=== PATIENT | male | born 1945 | race Caucasian/White ===

== ENCOUNTER 2023-07-11 10:07 | Inpatient (IN) ==
--- NOTE | 2023-07-11 10:22 | Emergency Department Note ---
Impression & Plan Acute hypoxic respiratory failure, Chest pain, CHF (congestive heart failure), Shortness of breath ED Provider Note NAME: YANA JAMES AGE: 78 SEX: M : 1945 ARRIVES VIA: Walk-In INFORMANT: Patient ED PROVIDER(S): Serafin Guzman DO CHIEF COMPLAINT: Shortness of breath HPI: Patient is a 78-year-old male who presents to the ER for shortness of breath with a past medical history of hyperlipidemia, diabetes and abnormal heart which she believes is too big. He notes symptoms started past 3 to 4 days with cough and congestion and runny nose. Shortness of breath has been getting worse. He significantly worsened with up moving around. He admits to intermittent dry heaving about once a day as well. He notes his stomach feels unsettled. This morning he started with some left upper chest wall/chest pain. Shortness of breath has been worsening. ADDITIONAL HISTORY OBTAINED: Per HPI Chronic Medical/Social Conditions Affecting Care: Per HPI PAST MEDICAL HISTORY:See Below PAST SURGICAL HISTORY:See Below FAMILY HISTORY:See Below SOCIAL HISTORY:See Below HOME MEDICATIONS:See Below ALLERGIES:See Below VITALS:See Below PHYSICAL EXAMINATION: GENERAL: Sitting up in bed, alert, ill-appearing, dyspneic with conversation, intermittent cough EYE EXAM: normal conjunctiva. PERRL and EOM's grossly intact. OROPHARYNX: no exudate, no erythema, lips, buccal mucosa, and tongue normal and mucous membranes are moist NECK: supple, no nuchal rigidity, no adenopathy, non-tender LUNGS: Diminished at the bilateral bases. Normal chest wall mechanics HEART: no murmurs, S1 normal and S2 normal ABDOMEN: abdomen soft, non-tender, normo-active bowel sounds, no masses, no rebound or guarding. UPPER EXTREMITIES: upper extremities are grossly normal. LOWER EXTREMITIES: Faint pitting edema bilaterally NEURO EXAM: Normal sensorium, cranial nerves II-XII grossly intact, normal speech, no gross weakness of arms, no gross weakness of legs. MEDICAL DECISION MAKING: Patient is a 78-year-old male who presents the ER dyspneic with conversation. IV was established blood work was obtained. He was found to be hypoxic at 87% on room air. He was placed on 2 L nasal cannula then transition to high flow which assisted with the work of breathing. Labs showed no significant leukocytosis. Mild anemia 9.4. BMP with a creatinine of 4.5. Patient notes that he has known renal disease with a GFR between 10 to 15. LFTs bilirubin were unremarkable. Troponin was elevated at 800 although I favor this secondary to the CKD. He was given aspirin. Lipase is unremarkable. Viral panel was negative. Chest x-ray suggest CHF. Patient was given a dose of Lasix after discussion with Dr. Luna for further evaluation management treatment. Patient was also given aspirin. Consults/Care Managements Discussions: Per MDM Triage Nursing notes reviewed. Limited review of prior medical records performed Vital Signs: reviewed and remarkable for hypoxic Differential diagnosis: Differential diagnoses includes but is not limited to pneumonia, bronchitis, COPD/Asthma exacerbation, pneumothorax, pulmonary embolism, congestive heart failure, acute coronary syndrome ER treatment provided: See below Diagnostics interpreted by me include EKG and cardiac monitoring as listed below: -Cardiac Monitoring: An order was placed for continuous cardiac monitoring. The monitor shows a rate of 82 with sinus rhythm. -ECG: Sinus rhythm with PACs and intermittent PVCs Left axis Right bundle branch block ST depressions in the lateral leads QTc 540 Repeat EKG shows sinus tachycardia with PACs rate [address] depressions in the lateral leads QTc 518 -Laboratory studies:Interpreted by me as stated above in MDM and shown below. Imaging studies: Xrays: As interpreted by me: Portable AP upright 1 view of the chest shows cephalization CTs show: none Procedures:none Critical Care: I have personally spent 32 minutes of critical care time in the direct management of this patient. This includes bedside care, interpretation of diagnostic studies, and testing, discussion with consultants, patient, and family members, and other required patient management activities. This 32 minutes is in excess of all separately billable procedures. Past Med/Surg History Medical History (Updated 07/11/23 @ 13:30 by Serafin Guzman DO) HLD (hyperlipidemia) Hypertension T2DM (type 2 diabetes mellitus) Sleep apnea ESRD (end stage renal disease) CHF (congestive heart failure) Social History Smoking Status: Never smoker Feels Safe at Home: Yes Allergies Allergies Allergy/AdvReac Type Severity Reaction Status Date / Time tramadol Allergy Mild Unknown Unverified 07/11/23 12:32 citalopram Allergy Unknown Unknown Unverified 07/11/23 12:32 diltiazem Allergy Unknown Unknown Unverified 07/11/23 12:32 niacin Allergy Unknown Unknown Unverified 07/11/23 12:32 Home Meds Home Medications Medication Instructions Recorded Confirmed Aspirin Enteric Coated (Ecotrin Or 81 mg PO PM ##0 04/16/08 07/11/23 Generic *) furosemide 40 mg tablet 40 mg PO QAM ##0 04/16/08 07/11/23 multivitamin 1 tab PO QAM ##0 04/16/08 07/11/23 valsartan 320 mg tablet 320 mg PO PM ##0 04/16/08 07/11/23 ATORVASTATIN (LIPITOR) 40 mg PO PM ##0 01/28/09 07/11/23 Insulin Human Regular (Insulin 07/11/23 07/11/23 Regular Pump) Pump Metoprolol 50 mg PO QAM 07/11/23 07/11/23 allopurinol 100 mg tablet 100 mg PO BID 07/11/23 07/11/23 cyanocobalamin (vitamin B-12) 500 500 mcg PO PM 07/11/23 07/11/23 mcg tablet fluticasone furoate 100 1 inh inhalation QAM 07/11/23 07/11/23 mcg-vilanterol 25 mcg/dose inhalation powder (Breo Ellipta) hydralazine 100 mg tablet 100 mg PO QAM 07/11/23 07/11/23 hydralazine 50 mg tablet 50 mg PO PM 07/11/23 07/11/23 semaglutide 1 mg INJ WK 07/11/23 07/11/23 terazosin 5 mg capsule 5 mg PO QAM 07/11/23 07/11/23 Results & Data (ED) Vital Signs Vital Signs - 24 hr 07/11/23 10:08 07/11/23 10:08 07/11/23 10:15 Temperature 36.7 C Temperature Source Temporal Artery Scan Pulse Rate 93 H 78 Pulse Rate from SpO2 Sensor Pulse Rhythm Regular Respiratory Rate 20 24 Respiratory Effort / Characteristics Non-Labored Spontaneous Respiratory Depth Normal Blood Pressure 115/52 L Blood Pressure Mean 73 Pulse Oximetry 88 L 92 92 Oxygen Delivery Method Room Air Room Air Room Air Sepsis New/Unexplained Change in Mental Status No Sepsis Action Taken by Nursing No Action Required 07/11/23 10:20 07/11/23 10:20 07/11/23 10:30 Temperature Temperature Source Pulse Rate 96 H 91 H Pulse Rate from SpO2 Sensor 97 H 91 H Pulse Rhythm Respiratory Rate 31 H 29 H Respiratory Effort / Characteristics Respiratory Depth Blood Pressure 128/67 Blood Pressure Mean 108 Pulse Oximetry 92 92 Oxygen Delivery Method Sepsis New/Unexplained Change in Mental Status Sepsis Action Taken by Nursing 07/11/23 11:00 07/11/23 11:30 07/11/23 11:37 Temperature Temperature Source Pulse Rate 121 H 82 80 Pulse Rate from SpO2 Sensor 82 82 80 Pulse Rhythm Respiratory Rate 19 33 H 27 H Respiratory Effort / Characteristics Respiratory Depth Blood Pressure Blood Pressure Mean Pulse Oximetry 88 L 87 L 92 Oxygen Delivery Method Sepsis New/Unexplained Change in Mental Status Sepsis Action Taken by Nursing 07/11/23 11:37 07/11/23 11:56 07/11/23 12:00 Temperature Temperature Source Pulse Rate 81 83 Pulse Rate from SpO2 Sensor 81 Pulse Rhythm Respiratory Rate 17 Respiratory Effort / Characteristics Respiratory Depth Blood Pressure 144/58 H Blood Pressure Mean 83 Pulse Oximetry 94 Oxygen Delivery Method Sepsis New/Unexplained Change in Mental Status Sepsis Action Taken by Nursing Laboratory Data 07/11/23 Unknown 07/11/23 Unknown Lab Results 07/11/23 Range/Units Unknown WBC 8.38 (4.8-10.8) K/ul RBC 3.09 L (4.70-6.10) M/uL Hgb 9.4 L (14.0-18.0) g/dl Hct 29.1 L (42.0-52.0) % MCV 94.2 (80.0-100.0) fL MCH 30.4 (25.0-34.0) pg MCHC 32.3 (32.0-36.0) g/dL RDW Std Deviation 52.2 H (36.4-46.3) fL RDW Coeff of Sera 15.2 H (11.5-14.5) % Plt Count 178 (130-400) K/uL MPV 10.7 (9.4-12.4) fL Immature Gran % (Auto) 0.4 % Neut % (Auto) 85.4 % Lymph % (Auto) 6.0 % [place] % (Auto) 7.4 % Eos % (Auto) 0.4 % Baso % (Auto) 0.4 % Neut # (Auto) 7.17 H (1.40-6.50) K/uL Lymph # (Auto) 0.50 L (1.20-3.40) K/uL [place] # (Auto) 0.62 H (0.11-0.59) K/uL Eos # (Auto) 0.03 (0.00-0.50) K/uL Baso # (Auto) 0.03 (0.00-0.20) K/uL Immature Gran # (Auto) 0.03 (0.01-0.20) K/uL Sodium 139 (136-145) mmol/L Potassium 3.8 (3.5-5.1) mmol/L Chloride 103 (98-107) mmol/L Carbon Dioxide 25 (21-32) mmol/L Anion Gap 11 (3-11) BUN 48 H (6-23) mg/dl Creatinine 4.57 H* (0.6-1.4) mg/dl Est Cr Clr Drug Dosing Not Reportable Est GFR ( Amer) 13.2 ml/min Est GFR (Non-Af Amer) 11.4 ml/min BUN/Creatinine Ratio 10.5 (10-20) Glucose 204 H (70-99(Fasting)) mg/dl Calcium 8.8 (8.6-10.3) mg/dl Total Bilirubin 0.5 (0.2-1.0) mg/dl AST 20 (13-39) U/L ALT 14 (7-52) U/L Alkaline Phosphatase 52 (34-104) U/L Troponin I High Sens 810.3 H* (0-20) pg/ml B-Natriuretic Peptide 552 H (0-100) pg/ml Total Protein 6.1 (6.0-8.3) gm/dl Albumin 3.1 L (3.4-5.0) gm/dl Globulin 3.0 (2.5-4.0) gm/dl Albumin/Globulin Ratio 1.0 (0.9-2) Lipase 18 (11-82) U/L Adenovirus (PCR) Not Detected (NotDetected) B. pertussis DNA (PCR) Not Detected (NotDetected) B.parapertussis DNA PCR Not Detected (NotDetected) C. pneumoniae DNA (PCR) Not Detected (NotDetected) Coronavirus OC43 (PCR) Not Detected (NotDetected) Coronavirus HKU1 (PCR) Not Detected (NotDetected) Coronavirus 229E (PCR) Not Detected (NotDetected) SARS-CoV-2 (PCR) Not Detected (NotDetected) Coronavirus NL63 (PCR) Not Detected (NotDetected) Human Metapneumovir PCR Not Detected (NotDetected) Influenza Type A (PCR) Not Detected (NotDetected) Influenza Type B (PCR) Not Detected (NotDetected) M. pneumoniae (PCR) Not Detected (NotDetected) Parainfluenza 1 (PCR) Not Detected (NotDetected) Parainfluenza 2 (PCR) Not Detected (NotDetected) Parainfluenza 3 (PCR) Not Detected (NotDetected) Parainfluenza 4 (PCR) Not Detected (NotDetected) RSV (PCR) Not Detected (NotDetected) Entero/Rhino (PCR) Not Detected (NotDetected) Administered Medications Discontinued Medications Aspirin (Aspirin Chew 324 Mg) 324 mg PO NOW STA Stop: 07/11/23 11:36 Last Admin: 07/11/23 11:54 Dose: 324 mg Documented By: ZULEYKA Furosemide (Furosemide 40 Mg/4 Ml Vial) 40 mg IV NOW STA Stop: 07/11/23 11:57 Last Admin: 07/11/23 12:21 Dose: 40 mg Documented By: ZULEYKA Nitroglycerin (Nitroglycerin Sl 0.4 Mg/Tab Tab) 0.4 mg SL NOW STA Stop: 07/11/23 12:12 Last Admin: 07/11/23 12:18 Dose: 0.4 mg Documented By: ZULEYKA Nitroglycerin (Nitroglycerin 2% Ointment 30gm Tube) Confirm Administered Dose 18 inch EXT .STK-MED ONE Stop: 07/11/23 12:15 Last Admin: 07/11/23 12:18 Dose: 18 inch Documented By: ZULEYKA Imaging Data Radiologist's Impression: Chest X-Ray 07/11/23 10:15 XR chest 1V portable HISTORY: 78 years-old Male Chest pain, nonspecific COMPARISON: 07/22/2006 TECHNIQUE: AP view of the chest FINDINGS: Cardiac silhouette is enlarged. Pulmonary vascular congestion with chronic interstitial coarsening. Trace pleural effusions. Mild bibasilar densities. Degenerative changes of the shoulders and spine. No pneumothorax. IMPRESSION: 1. Cardiomegaly with pulmonary vascular congestion. 2. Trace pleural effusions with mild bibasilar densities favoring atelectasis. ACT 112: Negative or not required by law. The above report was generated using voice recognition software. It may contain grammatical, syntax or spelling errors. Electronically signed by: Sahil Sesay M.D. 07/11/2023 11:04 AM Discharge Plan Visit Data Chief Complaint: Chest Pain Stated Complaint: CHEST PAINS, SOB, HEADACHE, SORE THROAT ED Provider: Serafin Guzman Discharge Problem: Acute hypoxic respiratory failure, Chest pain, CHF (congestive heart failure), Shortness of breath Forms Stand Alone Forms: [employer] Prescriptions Prescriptions: No Action Aspirin Enteric Coated (Ecotrin Or Generic *) 81 MG ENTERIC COATED TAB 81 mg PO PM Qty: 0 multivitamin [Multi-Vitamin] Tablet 1 tab PO QAM Qty: 0 furosemide 40 mg Tablet 40 mg PO QAM Qty: 0 valsartan 320 mg Tablet 320 mg PO PM Qty: 0 ATORVASTATIN (LIPITOR) 40 MG tablet 40 mg PO PM Qty: 0 terazosin 5 mg capsule 5 mg PO QAM allopurinol 100 mg tablet 100 mg PO BID cyanocobalamin (vitamin B-12) 500 mcg Tablet 500 mcg PO PM hydralazine 100 mg Tablet 100 mg PO QAM hydralazine 50 mg Tablet 50 mg PO PM fluticasone furoate-vilanterol [Breo Ellipta] 100-25 mcg/dose blister with device 1 inh INHALATION QAM (DME) Insulin Human Regular (Insulin Regular Pump) Pump Metoprolol 50 mg PO QAM Rx Instructions: list didnt specify tartrate or succinate semaglutide 1 mg INJ WK Rx Instructions: friday Referrals Referrals: PCP,NO [Physician] - Discharge Problem: Chest pain Qualifiers: Chest pain type: unspecified Qualified Code(s): R07.9 - Chest pain, unspecified CHF (congestive heart failure) Qualifiers: Heart failure type: unspecified Heart failure chronicity: unspecified Qualified Code(s): I50.9 - Heart failure, unspecified
[2023-07-11 10:48] LABS: Basophils # (auto) 0.03 K/uL (0.00-0.20); Basophils % (auto) 0.4 %; Eosinophils # (auto) 0.03 K/uL (0.00-0.50); Eosinophils % (auto) 0.4 %; Hematocrit (blood only) 29.1 % (42.0-52.0); Hemoglobin 9.4 g/dl (14.0-18.0); Immature Granulocytes # (auto) 0.03 K/uL (0.01-0.20); Immature Granulocytes % (auto) 0.4 %; Mean Corpuscular Hemoglobin 30.4 pg (25.0-34.0); Mean Corpuscular Hgb Conc 32.3 g/dL (32.0-36.0); Mean Corpuscular Volume 94.2 fL (80.0-100.0); Mean Platelet Volume 10.7 fL (9.4-12.4); Monocytes # (auto) 0.62 K/uL (0.11-0.59); Monocytes % (auto) 7.4 %; Neutrophils # (auto) 7.17 K/uL (1.40-6.50); Neutrophils % (auto) 85.4 %; Platelet Count 178 K/uL (130-400); RDW Coefficient of Variation 15.2 % (11.5-14.5); RDW Standard Deviation 52.2 fL (36.4-46.3); Red Blood Count 3.09 M/uL (4.70-6.10); White Blood Count 8.38 K/ul (4.8-10.8)
--- NOTE | 2023-07-11 11:05 | XRay Report ---
XR chest 1V portable HISTORY: 78 years-old Male Chest pain, nonspecific COMPARISON: 07/22/2006 TECHNIQUE: AP view of the chest FINDINGS: Cardiac silhouette is enlarged. Pulmonary vascular congestion with chronic interstitial coarsening. T race pleural effusions. Mild bibasilar densities. Degenerative changes of the shoulders and spine. No pneumothorax. IMPRESSION: 1. Cardiomegaly with pulmonary vascular congestion. 2. Trace pleural effusions with mild bibasilar densities favoring atelectasis. ACT 112: Negative or not required by law. The above report was generated using voice recognition software. It may contain grammatical, syntax o r spelling errors. Electronically signed by: Sahil Sesay M.D. 07/11/2023 11:04 AM
[2023-07-11 11:15] LABS: Alanine Aminotransferase 14 U/L (7-52); Albumin Level 3.1 gm/dl (3.4-5.0); Alkaline Phosphatase 52 U/L (34-104); Anion Gap 11 (3-11); Aspartate Aminotransferase 20 U/L (13-39); BUN Creatinine Ratio 10.5 (10-20); Bilirubin,Total 0.5 mg/dl (0.2-1.0); Blood Urea Nitrogen 48 mg/dl (6-23); Calcium 8.8 mg/dl (8.6-10.3); Carbon Dioxide 25 mmol/L (21-32); Chloride 103 mmol/L (98-107); Est GFR (African American) 13.2 ml/min; Est GFR (Non-African American) 11.4 ml/min; Glucose 204 mg/dl (70-99(Fasting)); Lipase 18 U/L (11-82); Potassium 3.8 mmol/L (3.5-5.1); Sodium 139 mmol/L (136-145); Total Protein 6.1 gm/dl (6.0-8.3); Troponin I High Sensitivity 810.3 pg/ml (0-20)
[2023-07-11] MEDS: ASPIRIN CHEW 324 MG PO STA (11:54)
--- NOTE | 2023-07-11 11:58 | History & Physical Report ---
Date of Service July 11, 2023 Assessment & Plan (1) NSTEMI (non-ST elevated myocardial infarction): Plan: SOB and chest pain with radiation into the left shoulder upon waking around 0400 on 07/10 Troponin 810-->1271 on arrival EKG revealed A-fib with PVCs at 96 bpm; QTc 540 However, unlikely a fib; repeat EKG showed NSR; p-waves present No prior EKGs for comparison Biofire negative ASA 324, sublingual nitro, and nitro-bid 2% given in the ED Working to obtain records from [facility] Trend Troponin q6h x 3 Continuous telemetry monitoring Continuous pulse oximetry Supplemental oxygen as needed to maintain SpO2 >94% Continue ASA 81mg daily Nitro 0.4mg SL as needed for chest pain EKG as needed for chest pain Heparin IV low-dose w/ bolus Cardiology consulted A.m. CBC, BMP, Mag, A1c, Fasting Lipid Panel (2) CHF (congestive heart failure): Plan: Hx of CHF; patient takes lasix 40mg QAM BNP elevated at 552 (no prior for comparison) CXR with cardiomegaly and pulmonary vascular congestion Echocardiogram ordered, pending Daily weights Strict I&O monitoring 1800mL fluid restriction Lasix 40 mg IV BID17 (3) ESRD (end stage renal disease): Plan: BUN 48, creatinine 4.57 (per patient his baseline is around 4.40), EGFR 11.4 Patient does have a fistula in his left wrist, but has not required dialysis yet No BP, IV, or labs in LUE Working to obtain prior records from [facility] Nephrology Avoid nephrotoxic agents Hold valsartan If patient is non-responsive to Lasix or requires cardiac catheterization, will need dialysis Nephrology consulted (4) T2DM (type 2 diabetes mellitus): Plan: Glucose 204 on admission Patient uses a U-500 insulin pump at home;around 80u - 87u daily via insulin pump, as well as additional Novolog if he consumes >70g carbs Patient has not had his insulin pump on for the past 24h Spoke with pharmacy; pharmacy glycemic consult Lantus BID + SSI, with adjustments as necessary if patient requires dialysis Hold semaglutide T2DM diet BSG ACHS with additional checks Adjust regimen as needed (5) HLD (hyperlipidemia): Plan: Continue Lipitor 40mg p.o. for now Follow A.m. fasting lipid panel (6) Hypertension: Plan: Continue metoprolol Continue hydralazine (7) Sleep apnea: Plan: CPAP HS Plan Disposition: Admit to PCU telemetry DNR/DNI AHA, T2DM, low-salt diet (fluid restriction 1800 mL) VTE: IV heparin low-dose w/ bolus History of Present Illness Chief Complaint: Chest pain Primary Care Provider: [facility] Eduardo is a 78yo male with PMH of HTN, HLD, T2DM, CHF, and GERD among others. He presented for chest pain with radiation into his left shoulder on 07/10. He woke up this morning around 0400 due to lack of oxygen. Patient uses a BiPAP at night and has for the past 20 years. He reports that he woke up with trouble breathing, and took off his BiPAP; sitting up made it easier to breathe. He also notes he had pain across his left chest and left shoulder, which he described as a constant "crushing" pain. No radiation down the left arm or to the upper back. Patient did take Tylenol 1000 mg at that time, which helped the pain a little bit. He reports the pain was only 4/10 at its worst, but was constant and reports that he does have a high pain tolerance. Patient does not normally get chest pain with exertion or at rest. He does note he had a rotator cuff 10 years ago, but denies any recent injuries to the left shoulder or chest wall. Patient took all of his regular morning medications today; denies any recent change in medications. He does have a history of diabetes, and reports that he uses around 80 units daily with his insulin pump; checks his blood sugar 4 times daily. He has a fistula in his left wrist, and follows with Vipin Guzmán (Nephrology; [facility]), but has not currently had dialysis; the fistula was placed in the event that he would need dialysis. He reports that his last creatinine was around 4.4 (this is around baseline today). He has not been eating as much recently; he does have salt the foods in his diet, and reports he had salsa 2 nights ago, but denies any extra salt in his diet. He reports that he does have a history of abdominal aortic distention, but this is around 3 cm, and he has it checked regularly. His chest pain was relieved with nitro in the ED. Associated symptoms include dry heaves over the past 3 days. Patient reports that he is a former smoker; quit in May 1999. He denies any recent alcohol use. No supplemental oxygen at home, but he does report that he has a CPAP that he uses at night x 20 years. No PMH of heart stents, MN, or PE/DVT. Patient uses a cane at home for ambulation, and occasionally a walker. He does report recently falling x 2 in March 2023; cut his forehead, and went to the hospital. Patient is hypertensive at 144/58 and tachypneic at 34 RPM at time of admission; SpO2 94% on 3L NC. ED Course: ASA 324mg Placed on high-flow Lasix 40mg IV ROS: Patient endorses chills x 3 nights, night-sweats x 3 nights, lightheadedness, RODRIGUEZ, changes in vision (difficulty with focusing and occasional blurriness), chest pain, left shoulder pain, SOB at rest, ongoing HAGAN, dry cough (which he calls his "nervous" cough), pleuritic CP, dry heaves, leg swelling, and chronic LE neuropathy. Patient denies fever, loss of vision, abdominal pain, N/V/D, change in urinary/bowel habits, burning with urination, or blood in the urine or stool. Allergies Allergy/AdvReac Type Severity Reaction Status Date / Time tramadol Allergy Mild Unknown Unverified 07/11/23 12:32 citalopram Allergy Unknown Unknown Unverified 07/11/23 12:32 diltiazem Allergy Unknown Unknown Unverified 07/11/23 12:32 niacin Allergy Unknown Unknown Unverified 07/11/23 12:32 Home Medications Medication Instructions Recorded Confirmed Type Aspirin Enteric Coated (Ecotrin Or 81 mg PO PM ##0 04/16/08 07/11/23 History Generic *) furosemide 40 mg tablet 40 mg PO QAM ##0 04/16/08 07/11/23 History multivitamin 1 tab PO QAM ##0 04/16/08 07/11/23 History valsartan 320 mg tablet 320 mg PO PM ##0 04/16/08 07/11/23 History ATORVASTATIN (LIPITOR) 40 mg PO PM ##0 01/28/09 07/11/23 History Insulin Human Regular (Insulin 07/11/23 07/11/23 History Regular Pump) Pump allopurinol 100 mg tablet 100 mg PO BID 07/11/23 07/11/23 History cyanocobalamin (vitamin B-12) 500 500 mcg PO PM 07/11/23 07/11/23 History mcg tablet fluticasone furoate 100 1 inh inhalation QAM 07/11/23 07/11/23 History mcg-vilanterol 25 mcg/dose inhalation powder (Breo Ellipta) hydralazine 100 mg tablet 100 mg PO QAM 07/11/23 07/11/23 History hydralazine 50 mg tablet 50 mg PO PM 07/11/23 07/11/23 History metoprolol succinate 50 mg 50 mg PO DAILY 07/11/23 07/11/23 History tablet,extended release 24 hr semaglutide 1 mg INJ WK 07/11/23 07/11/23 History terazosin 5 mg capsule 5 mg PO QAM 07/11/23 07/11/23 History Past Med/Surg History Medical History (Updated 07/11/23 @ 14:40 by Joceline Silver MD) Anemia due to chronic 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 HLD (hyperlipidemia) Hypertension T2DM (type 2 diabetes mellitus) Sleep apnea ESRD (end stage renal disease) CHF (congestive heart failure) Social History Smoking Status: Never smoker Hx Alcohol Use: No Hx Substance Use: No Preferred Language: Nepali Communication Ability: Effective Financial Economist Required: No Beliefs That Will Affect Care: None Current Living Situation: Spouse Feels Safe at Home: Yes Assistive Devices: BiPap, Cane, Denture - Upper, Hearing Aid - Bilateral, Stair Lift, Walker and Wheelchair Review of Systems Review of Systems: See HPI above Physical Exam Physical Exam: General: Moderate respiratory distress; pleasant affect; non-toxic appearing; well-nourished; cooperative; 94% SpO2 on 3L NC HEENT: normocephalic, atraumatic; no scleral icterus; PERRLA; moist mucus membrane; vision intact; hard of hearing Neck: supple; negative for JVP; no lymphadenopathy; trachea midline Skin: warm, dry without signs of tenting; no cyanosis; no rashes, bruising, lesions, or erythema noted CV: chest wall NTP; pain is not reproducible with palpation of the left chest wall or left shoulder; RRR; S1/S2 normal; no murmurs/rubs/gallops; pulses intact and symmetric at radial, DP, and PT Lungs: no acute respiratory distress; symmetrical chest wall expansion; clear breath sounds across all lung mireles w/o adventitious sounds; no wheezing ABD: Soft, NTP; BS present; no rebound/guarding; moderate distention secondary to body habitus MSK: no tics or fasciculations; +2 pitting edema in the lower extremities bilaterally; fistula in the left wrist Neuro: A&Ox3; normal mood and affect; fluent speech; no focal deficits; diminished sensation in the LEs b/l, but intact and symmetric Results & Data Results & Data Vital Signs (Past 12 Hours) Vital Signs Temp Pulse Resp BP Pulse Ox O2 Del Method 07/11/23 11:56 81 07/11/23 11:00 121 H 19 88 L 07/11/23 10:30 91 H 29 H 92 07/11/23 10:20 96 H 31 H 92 07/11/23 10:20 128/67 07/11/23 10:15 78 24 92 Room Air 07/11/23 10:08 92 Room Air 07/11/23 10:08 36.7 C 93 H 20 115/52 L 88 L Room Air Laboratory Results Abnormal lab results 07/11/23 Range/Units Unknown RBC 3.09 L (4.70-6.10) M/uL Hgb 9.4 L (14.0-18.0) g/dl Hct 29.1 L (42.0-52.0) % RDW Std Deviation 52.2 H (36.4-46.3) fL RDW Coeff of Sera 15.2 H (11.5-14.5) % Neut # (Auto) 7.17 H (1.40-6.50) K/uL Lymph # (Auto) 0.50 L (1.20-3.40) K/uL Nance # (Auto) 0.62 H (0.11-0.59) K/uL BUN 48 H (6-23) mg/dl Creatinine 4.57 H* (0.6-1.4) mg/dl Glucose 204 H (70-99(Fasting)) mg/dl Troponin I High Sens 810.3 H* (0-20) pg/ml B-Natriuretic Peptide 552 H (0-100) pg/ml Albumin 3.1 L (3.4-5.0) gm/dl Diagnostic Findings Chest X-Ray 07/11/23 10:15 XR chest 1V portable HISTORY: 78 years-old Male Chest pain, nonspecific COMPARISON: 07/22/2006 TECHNIQUE: AP view of the chest FINDINGS: Cardiac silhouette is enlarged. Pulmonary vascular congestion with chronic interstitial coarsening. Trace pleural effusions. Mild bibasilar densities. Degenerative changes of the shoulders and spine. No pneumothorax. IMPRESSION: 1. Cardiomegaly with pulmonary vascular congestion. 2. Trace pleural effusions with mild bibasilar densities favoring atelectasis. ACT 112: Negative or not required by law. The above report was generated using voice recognition software. It may contain grammatical, syntax or spelling errors. Electronically signed by: Sahil Sesay M.D. 07/11/2023 11:04 AM Medications Administered EKG reports atrial fibrillation at 96bpm, however P-waves present Repeat EKG with NSR Lateral ST-depressions Prolonged QTc (caution use of QT prolonging agents) Code Status & VTE Plan Code Status DNR/DNI VTE Prophylaxis Plan VTE Prophylaxis will be ordered: Yes Supervising Physician Co-Signing Physician Notes Patient seen and examined, chart reviewed, case discussed with Tyrone Hawkins and I agree with the assessment and plan as above except as otherwise noted Labs and images reviewed Eduardo is a 78-year-old male with past medical history of diabetic CKD with baseline GFR of 1015 and last creatinine of approximately 4.03 April 2023, CHF without history of MN/stents and no history of heart attack per patient collateral pending reconciliation from [place] and [facility] records, type II DM on insulin pump which patient reports he uses about 40 units of U-500 daily and total, hypertension, hyperlipidemia, and COPD with former tobacco abuse in remission who presented to the ER with chest pain and shortness of breath with an abrupt onset this morning. Prior to presentation he reports he has been progressively short of breath and easily winded with exertion for approximately a week. He has noticed increased leg swelling compared to normal in the last week despite taking Lasix and peeing normally. He reports he did have some salsa 2 days ago, otherwise has not had a change in his salt intake and denies soup/salted foods/meats. His notes he does salt his food but has had a diminished appetite in the last few days so has not done this very much. [facility] he actually came in due to developing pain in his anterior left shoulder. He thought this could be related to rotator cuff pain in that shoulder which she last had 10 years ago. Following admission to the ER he was given a full dose aspirin, he said with rest and oxygen the pain improved from around 8/10 with a painful quality down to a 46/10 with a pressure like quality but he remained short of breath. Received Lasix 40 mg IV in the ER for suspected CHF/volume overload. NO reproducible shoulder pain on palpation/shoulder RoM testing. At hospitalist assessment patient was given nitro sublingual x 1 and 1 inch of Nitropaste. This completely and quickly resolved both his chest/shoulder discomfort and his shortness of breath. Initial EKG with incomplete right bundle branch block and lateral ST depressions. This was read as A-fib with a poor baseline and some overlapping T waves; on review P waves with a consistent ME do appear to be present and EKG is consistent with sinus with inferolateral ST depressions. Following oxygen, Lasix, and nitro patient's EKG was repeated at the bedside. ST depressions normalized and patient's chest pain resolved. No EKG available for comparison, records are pending from both [facility] and [facility]. Patient reports that he has not had chest pain/pressure until today, denies crescendo angina. As patient shows evidence of volume overload, will continue Lasix twice daily. At time of ER assessment he is chest pain-free with dynamic changes on EKG improved. Will continue to follow, trend troponin, and obtain echo. Heparinized. Patient's cardiac history is unclear he reports he does follow with a radiologic technologist chief in [facility] and had "either a big or small heart "but is not able to give more detail than this. He is on aspirin/metoprolol/ARB/Lasix, ARB held and aspirin continued. Cardiology consulted. Increased risk of complications of contrast 2/2 CKD5. Patient has a history of diabetic CKD with baseline creatinine in the mid fours and baseline GFR of 1015. He did have a left wrist fistula placed, this is completely occluded and not usable. He also has left AC fistula with +thrill however per his fabricator special items/vascular team cannot be accessed as it is too small to accommodate appropriate access. He reports he has been prepared for dialysis but has never needed it, and while his creatinine is high he is not an uric and has been doing well with home Lasix up until now. Patient is continued on Lasix as noted, nephrology is consulted to follow along given CKD 5 with concurrent volume overload/CHF. If patient requires dialysis he will need a temporary catheter placed. Patient sees [place] nephrology Dr. Harmon. [facility] Nephrology records pending. PG Care Time/CCT Total # of Minutes Spent Total Time Spent with Patient: Total time spent is greater than 50% in coordination of care (as documented) at patient's floor/unit and/or counseling patient: [place] [address] INT INP/OBS CARE 375MIN Patient Type New History Comprehensive Exam Comprehensive Medical Decision Making High Complexity Diagnoses NSTEMI (non-ST elevated myocardial infarction) I21.4 CHF (congestive heart failure) I50.9 ESRD (end stage renal disease) N18.6 T2DM (type 2 diabetes mellitus) E11.9 HLD (hyperlipidemia) E78.5 Hypertension I10 Sleep apnea G47.30
[2023-07-11 12:08] LABS: Adenovirus PCR Not Detected (NotDetected); Bordetella parapertussis PCR Not Detected (NotDetected); Bordetella pertussis PCR Not Detected (NotDetected); Chlamydia pneumoniae PCR Not Detected (NotDetected); Coronavirus 229E PCR Not Detected (NotDetected); Coronavirus CoV-2 (COVID19)PCR Not Detected (NotDetected); Coronavirus HKU1 PCR Not Detected (NotDetected); Coronavirus NL63 PCR Not Detected (NotDetected); Coronavirus OC43PCR Not Detected (NotDetected); Human Metapneumovirus PCR Not Detected (NotDetected); Influenza A PCR Not Detected (NotDetected); Influenza B PCR Not Detected (NotDetected); Mycoplasma pneumoniae PCR Not Detected (NotDetected); Parainfluenza Virus 1 PCR Not Detected (NotDetected); Parainfluenza Virus 2 PCR Not Detected (NotDetected); Parainfluenza Virus 3 PCR Not Detected (NotDetected); Parainfluenza Virus 4 PCR Not Detected (NotDetected); Respiratory Syncytial VirusPCR Not Detected (NotDetected); Rhinovirus/Enterovirus PCR Not Detected (NotDetected)
[2023-07-11] MEDS: NITROGLYCERIN SL 0.4 MG/TAB TAB SL STA (12:18)
[2023-07-11] MEDS: NITROGLYCERIN 2% OINTMENT 30GM TUBE EXT ONE ×2 (12:18→14:47)
[2023-07-11] MEDS: FUROSEMIDE 40 MG/4 ML VIAL IV STA (12:21)
[2023-07-11] MEDS ORDERED: NITROGLYCERIN SL 0.4 MG/TAB TAB SL PRN (14:22)
[2023-07-11] MEDS ORDERED: CARBOHYDRATES FOR HYPOGLYCEMIA PO PRN (14:22)
[2023-07-11] MEDS ORDERED: DEXTROSE 50% 50 ML SYRINGE IV PRN (14:22)
[2023-07-11] MEDS ORDERED: ONDANSETRON INJ 2 MG/ML 2 ML VIAL IV PRN (14:22)
[2023-07-11] MEDS ORDERED: GLUCOSE 10 TAB/TUBE PO PRN (14:22)
[2023-07-11] MEDS ORDERED: GLUCOSE 40% GEL 15 GM TUBE PO PRN (14:22)
[2023-07-11] MEDS ORDERED: PHARMACY GLYCEMIC MGMT CONSULT PRN ×2 (14:22→14:50)
[2023-07-11] MEDS ORDERED: GLUCAGON FOR INJ 1 MG VIAL SQ PRN (14:22)
--- NOTE | 2023-07-11 14:40 | Nephrology Consultation ---
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 Noted to have anemia with hemoglobin 9.4. Kidney function seems to be at baseline with acceptable electrolytes. Seems volume overloaded, already responding to diuretic with improvement in respiratory status. Chest pain improved with nitro. Second set of troponin trending down. -- Okay to continue on current dose of diuretics. -- Check CBC and iron study in a.m., if significantly iron deficient, will start on Venofer otherwise start on RAMIREZ -- Check phosphorus with a.m. lab -- Left arm nephrology precaution, dose medications for eGFR less than 15. -- Okay to resume valsartan if blood pressure running high as potassium normal and currently on higher dose of diuretics. No indication for dialysis at this time, continue to monitor electrolyte and volume status. Thank you for allowing me to participate in your patient's care. It was a pleasure to see Ed. History of Present Illness Reason for Consultation: Stage 5 CKD, volume overload. Attending Physician: Wyatt Hassan MD History of Present Illness Mr. Eduardo Bunch is a 78-year-old gentleman with stage V CKD, hypertension, diabetes, dyslipidemia admitted to the hospital with chest pain, shortness of breath with volume overload. Nephrology consult was requested for management of advanced CKD/ESKD, volume overload. Electronic medical records were reviewed in detail during patient's visit. Eduardo presented to ER with chest pain and shortness of breath which started early this morning. He generally uses BiPAP at night for sleep apnea. In ER blood pressure was acceptable. He was noted to be hypoxic on room air, started on nasal cannula oxygen. At home he was on Lasix 40 mg daily. He was given a dose of 40 mg of IV Lasix. Chest pain did improve with nitro in ED. chest x-ray showed pulmonary vascular congestion. Lab was notable for hemoglobin 9.4. Creatinine was 4.6 mg/dl with EGFR around 11. Electrolyte was acceptable. Potassium was 3.8, HCO3 25. Initial troponin was elevated but second troponin was slightly lower. EKG with no acute ST-T changes. Has history of stage V CKD, according to the report b/l cr has been around 4.4- 4.5 mg/dl, First access left RC AVF failed and then had left BC AV fistula in September 2022 but slow to mature and recommended he will need transposition in future, his supervisor blueprinting and photocopy is Vipin Guzmán at [facility]. Has history of hypertension and diabetes, has been on valsartan 320 mg daily, hydralazine, Lasix 40 mg daily, insulin and Ozempic. Allergies Allergy/AdvReac Type Severity Reaction Status Date / Time tramadol Allergy Mild Unknown Unverified 07/11/23 12:32 citalopram Allergy Unknown Unknown Unverified 07/11/23 12:32 diltiazem Allergy Unknown Unknown Unverified 07/11/23 12:32 niacin Allergy Unknown Unknown Unverified 07/11/23 12:32 Home Medications Medication Instructions Recorded Confirmed Type Aspirin Enteric Coated (Ecotrin Or 81 mg PO PM ##0 04/16/08 07/11/23 History Generic *) furosemide 40 mg tablet 40 mg PO QAM ##0 04/16/08 07/11/23 History multivitamin 1 tab PO QAM ##0 04/16/08 07/11/23 History valsartan 320 mg tablet 320 mg PO PM ##0 04/16/08 07/11/23 History ATORVASTATIN (LIPITOR) 40 mg PO PM ##0 01/28/09 07/11/23 History Insulin Human Regular (Insulin 07/11/23 07/11/23 History Regular Pump) Pump allopurinol 100 mg tablet 100 mg PO BID 07/11/23 07/11/23 History cyanocobalamin (vitamin B-12) 500 500 mcg PO PM 07/11/23 07/11/23 History mcg tablet fluticasone furoate 100 1 inh inhalation QAM 07/11/23 07/11/23 History mcg-vilanterol 25 mcg/dose inhalation powder (Breo Ellipta) hydralazine 100 mg tablet 100 mg PO QAM 07/11/23 07/11/23 History hydralazine 50 mg tablet 50 mg PO PM 07/11/23 07/11/23 History metoprolol succinate 50 mg 50 mg PO DAILY 07/11/23 07/11/23 History tablet,extended release 24 hr semaglutide 1 mg INJ WK 07/11/23 07/11/23 History terazosin 5 mg capsule 5 mg PO QAM 07/11/23 07/11/23 History Patient History Medical History Anemia due to chronic 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 HLD (hyperlipidemia) Hypertension T2DM (type 2 diabetes mellitus) Sleep apnea ESRD (end stage renal disease) CHF (congestive heart failure) Social History Smoking Status: Never smoker Hx Alcohol Use: No Hx Substance Use: No Preferred Language: Burundian Communication Ability: Effective Workers' Compensation Magistrate Required: No Beliefs That Will Affect Care: None Current Living Situation: Spouse Other Information That Helps Us Care for You: No Feels Safe at Home: Yes Safety Concerns: Feels Safe At This Time Assistive Devices: BiPap, Cane, Denture - Upper, Hearing Aid - Bilateral, Stair Lift, Walker and Wheelchair Review of Systems Review of Systems: All systems reviewed & are unremarkable except as noted in HPI & below Physical Exam Constitutional: WD/WN, vitals as above no acute distress Eyes: + anicteric sclerae Neck: normal visual inspection Respiratory: no respiratory distress Auscultation: + crackles; no wheezes Cardiovascular: Rate/Rhythm: regular rate and regular rhythm Heart Sounds: normal S1 and normal S2 Extremities: + edema and + AV fistula (left BC AVF with thrill and high pitched bruit.) Musculoskeletal: no cyanosis or clubbing, extremities motor strength 5/5 Skin: no rashes, warm and dry Neurologic: no focal motor deficits Psychiatric: Orientation: alert and oriented x 3 Affect: euthymic affect Results & Data Vital Signs (Past 12 Hours) Vital Signs Temp Pulse Resp BP BP Pulse Ox O2 Del Method 07/11/23 14:20 36.8 C 16 163/79 H 94 Nasal Cannula 07/11/23 13:30 85 34 H 94 07/11/23 13:00 80 21 95 07/11/23 12:30 82 22 93 07/11/23 12:00 83 17 94 04/12/24 11:56 81 07/11/23 11:37 144/58 H 07/11/23 11:37 80 27 H 92 07/11/23 11:30 82 33 H 87 L 07/11/23 11:00 121 H 19 88 L 07/11/23 10:30 91 H 29 H 92 07/11/23 10:20 96 H 31 H 92 07/11/23 10:20 128/67 07/11/23 10:15 78 24 92 Room Air 07/11/23 10:08 92 Room Air 07/11/23 10:08 36.7 C 93 H 20 115/52 L 88 L Room Air O2 Flow Rate 07/11/23 14:20 2 07/11/23 13:30 07/11/23 13:00 07/11/23 12:30 07/11/23 12:00 07/11/23 11:56 07/11/23 11:37 07/11/23 11:37 07/11/23 11:30 07/11/23 11:00 07/11/23 10:30 07/11/23 10:20 07/11/23 10:20 07/11/23 10:15 07/11/23 10:08 07/11/23 10:08 PG Care Time/CCT Total # of Minutes Spent Total Time Spent with Patient: Total time spent is greater than 50% in coordination of care (as documented) at patient's floor/unit and/or counseling patient: Coding Level of Care Code 00831 INT INP/OBS CARE 3/75MIN Diagnoses 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
[2023-07-11] MEDS: NITROGLYCERIN SL 0.4 MG/TAB TAB ONE (14:46)
[2023-07-11] MEDS ORDERED: [UNRECOGNIZED DRUG - OTHER] SC SCH (15:00)
[2023-07-11] MEDS ORDERED: INSULIN REGULAR SC SCH (15:00)
--- NOTE | 2023-07-11 15:14 | Pharmacy Report ---
Pharmacy Glycemic Short Note 2 - Date of Service July 11, 2023 - Glycemic Short BSG Results (Last 24 hours): 07/11/23 Unknown Glucose 204 H OUTPATIENT ANTIDIABETIC REGIMEN: Spoke extensively with the patient (with his Johana as the patient is [id number]). He is on the following as an outpatient: * U500 insulin pump - basal only, no bolus. Patient removed pump 07/09 at 1630. * 9365-9399: no basal rate * 0841-7829: 0.9 units/hr * 7860-6417: 1.15 units/hr * 2190-3150: 1.3 units/hr * Total daily U500 insulin dose: 17.55 units/day - patient noted the units above are in *U500* units and therefore the equivalent in U100 units would be 5x the amount listed, which would be 87.75 units of U100 equivalent per day * Novolog prn * Uses a CHO ratio of 3 g CHO/unit, BUT only if he consumes >70 g CHO. If he doesn't consume 70 g CHO - no Novolog. * Semaglutide qwk * HbA1c unknown - ordered for 07/12/23 ASSESSMENT: * 78 yo M with T2DM admitted with possible NSTEMI vs demand ischemia and worsening renal function with the possibility of initiating dialysis soon. U500 pump that patient uses exclusively for basal insulin was removed by patient yesterday at 4:30pm * No prior records to review * Spoke extensively with patient and his - see above for home regimen. Home regimen significantly basal heavy - likely covers some prandial needs. Also, if patient needs dialysis, this can drastically reduce insulin needs, thus higher basal doses at this time could contribute to future hypoglycemia. Will be less aggressive with basal, but will add in Novolog checks including overnight. PLAN FOR INPATIENT GLYCEMIC CONTROL: * Hold U500 pump - patient's plans to bring supplies in tomorrow AM for *eventual* transition back to pump prior to discharge, if indicated. Discussed that would be using basal/bolus as an inpatient and that pump should not be utilized simultaneously. Noted that it would be up to the provider to determine when the pump should be utilized. * Basal insulin * Lantus 30 units SQ x1 now * Bolus insulin * NovoLog per scale ACHS or Q6hrs while NPO * Goal Range: Low 120 mg/dL - High 160 mg/dL * Correction Factor: 15 mg/dL/unit * Nutritional / Prandial insulin per carb ratio of 1 unit per 4 grams CHO consumed
[2023-07-11] MEDS ORDERED: HEPARIN SOD (PORCINE) 1000 UNIT/ML IV ONE (15:17)
--- NOTE | 2023-07-11 16:15 | XCELERA ---
[id number] \\[id number]
--- NOTE | 2023-07-11 16:20 | Cardiology Consultation ---
Date of Consultation July 11, 2023 Assessment & Plan (1) NSTEMI (non-ST elevated myocardial infarction): (2) Acute on chronic heart failure with preserved ejection fraction (HFpEF): (3) Hypertension: (4) HLD (hyperlipidemia): (5) Anemia due to chronic kidney disease: Plan ASSESSMENT/PLAN: 1. NSTEMI: Presented with his first episode of angina, with positive troponins and hypokinesis of the anterolateral wall on echo. We discussed the diagnosis and concern for underlying CAD, especially with his risk factors. We discussed role for cardiac catheterization but also increased risk for need of dialysis given his advanced kidney disease. He does not wish to undergo cardiac catheterization but prefers medical management. Recommended heparin drip if no contraindication. Heparin for 48 hours. Continue aspirin 81 mg daily. Initiate Plavix 75 mg daily if no contraindication. Plavix can be continued for 1 year if tolerated. Continue beta-ritesh and would recommend increasing home dose of metoprolol to 100 mg daily for medical management of presumed underlying CAD. High intensity statin therapy. Isosorbide mononitrate 30 mg daily. Recommend cardiac rehab. If he should have ongoing angina that does not resolve with medical therapy, we discussed the fact that urgent cardiac catheterization could be considered if he is agreeable. 2. Acute on chronic heart failure with preserved EF: Difficult neck exam but certainly has lower extremity edema and based on his presentation has symptoms of heart failure leading up to this hospital stay. NYHA class 4. Agree with intravenous diuretics. Monitor renal function and electrolytes closely. Low- sodium diet, less than 2000 mg daily. Strict I's and O's while hospitalized. Daily weights. These recommendations were discussed with him. No SGLT2 inhibitor given advanced CKD. 3. Hypertension: Blood pressure mostly elevated thus far here. Increase beta- ritesh as noted above. 4. Dyslipidemia: Goal LDL < 70. Continue high intensity statin therapy. 5. Anemia: Monitor closely with antiplatelet therapy and heparin. 6. CKD: Follows with nephrology in [facility] [place]. 7. Disposition: Patient care signed out to Dr. Ramos who is on-call Friday evening and Friday. Dr. Ramos will resume his care tomorrow. Patient care initially discussed with admitting primary hospitalist team (Dr. Hassan). Cardiac rehab on discharge. Follow-up with primary phone manager. Highly complex medical issues. Thank you for allowing me to participate in the care of your patient. Please call for any other questions or concerns. Sincerely, Manny Staton M.D. History of Present Illness Reason for Consultation: NSTEMI Requesting Physician: Tyrone Hawkins PA-C Attending Physician: Wyatt Hassan MD History of Present Illness Mr. Bunch is a very pleasant 78-year-old gentleman with a history significant for heart failure with preserved EF, advanced CKD, left upper extremity AV fistula, type 2 diabetes, hypertension, dyslipidemia, sleep apnea on BiPAP nightly, and AAA. He follows with cardiology and nephrology in the [facility] system. He was admitted on 07/11/2023 after being awakened at 4 AM the same day with left upper chest discomfort described as "crushing." There was associated shortness of breath and diaphoresis but no radiation of the pain. He has never felt this discomfort before. Symptoms persisted for few hours. His drove him from [place] to [facility]. He was given aspirin and the pain resolved following nitroglycerin. He was chest pain-free at the time of this visit, earlier this evening. For the past 3 days, he has noted edema, orthopnea, even while using BiPAP. He maintains a low-sodium diet. Dyspnea on exertion has been chronic. He states he can only walk approximately 10 yards due to dyspnea and also bilateral hip pain. He denies muscle discomfort in his legs with walking. He maintains a low-sodium diet. He does not weigh himself daily. He takes Lasix on a regular basis, 40 mg daily. Review of systems: As above. Review of systems otherwise negative/unremarkable. Family history: Father had PA at the age of 72. Social history: He quit smoking on 06/30/1999. No alcohol or drug abuse. Lives at home with his third in [place]. Has 3 biologic children but they are not part of his life. He is x 1 and x 1. He was unaccompanied. Allergies Allergy/AdvReac Type Severity Reaction Status Date / Time tramadol Allergy Mild Unknown Unverified 07/11/23 12:32 citalopram Allergy Unknown Unknown Unverified 07/11/23 12:32 diltiazem Allergy Unknown Unknown Unverified 07/11/23 12:32 niacin Allergy Unknown Unknown Unverified 07/11/23 12:32 Home Medications Medication Instructions Recorded Confirmed Type Aspirin Enteric Coated (Ecotrin Or 81 mg PO PM ##0 04/16/08 07/11/23 History Generic *) furosemide 40 mg tablet 40 mg PO QAM ##0 04/16/08 07/11/23 History multivitamin 1 tab PO QAM ##0 04/16/08 07/11/23 History valsartan 320 mg tablet 320 mg PO PM ##0 04/16/08 07/11/23 History ATORVASTATIN (LIPITOR) 40 mg PO PM ##0 01/28/09 07/11/23 History Insulin Human Regular (Insulin 07/11/23 07/11/23 History Regular Pump) Pump allopurinol 100 mg tablet 100 mg PO BID 07/11/23 07/11/23 History cyanocobalamin (vitamin B-12) 500 500 mcg PO PM 07/11/23 07/11/23 History mcg tablet fluticasone furoate 100 1 inh inhalation QAM 07/11/23 07/11/23 History mcg-vilanterol 25 mcg/dose inhalation powder (Breo Ellipta) hydralazine 100 mg tablet 100 mg PO QAM 07/11/23 07/11/23 History hydralazine 50 mg tablet 50 mg PO PM 07/11/23 07/11/23 History metoprolol succinate 50 mg 50 mg PO DAILY 07/11/23 07/11/23 History tablet,extended release 24 hr semaglutide 1 mg INJ WK 07/11/23 07/11/23 History terazosin 5 mg capsule 5 mg PO QAM 07/11/23 07/11/23 History Patient History Medical History Anemia due to chronic 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 HLD (hyperlipidemia) Hypertension T2DM (type 2 diabetes mellitus) Sleep apnea ESRD (end stage renal disease) CHF (congestive heart failure) Social History Smoking Status: Never smoker Hx Alcohol Use: No Hx Substance Use: No Preferred Language: Maltese Communication Ability: Effective Lab Animal Technician Required: No Beliefs That Will Affect Care: None Current Living Situation: Spouse Other Information That Helps Us Care for You: No Feels Safe at Home: Yes Safety Concerns: Feels Safe At This Time Assistive Devices: BiPap, Cane, Denture - Upper, Hearing Aid - Bilateral, Stair Lift, Walker and Wheelchair Physical Exam Physical Exam: Gen.: No acute distress. Alert and oriented. HEENT: Anicteric sclera. Neck: Thick neck. Bilateral carotid bruit versus radiation of cardiac murmur. Normal carotid upstrokes bilaterally. Cardiac: Regular. Normal S1-S2. 2/6 early peaking systolic ejection murmur best heard at the right upper sternal border. Pulmonary: Decreased breath sounds throughout, but otherwise clear to auscultation bilaterally without wheezes, rales, or rhonchi. Abdomen: Soft, nontender, nondistended, with normoactive bowel sounds. No bruits noted. Extremities: 2+ radial pulses bilaterally. 1+ dorsalis pedis pulses bilaterally. 2+ bilateral lower extremity edema. Left upper extremity AV fistula with palpable thrill and audible bruit. No cyanosis. Psychiatric: Affect appears appropriate. Results & Data Vital Signs (Past 12 Hours) Vital Signs Temp Pulse Resp BP BP Pulse Ox O2 Del Method 07/11/23 15:23 85 07/11/23 14:37 Room Air 07/11/23 14:20 36.8 C 16 163/79 H 94 Nasal Cannula 07/11/23 13:30 85 34 H 94 07/11/23 13:00 80 21 95 07/11/23 12:30 82 22 93 07/11/23 12:00 83 17 94 07/11/23 11:56 81 07/11/23 11:37 144/58 H 07/11/23 11:37 80 27 H 92 07/11/23 11:30 82 33 H 87 L 07/11/23 11:00 121 H 19 88 L 07/11/23 10:30 91 H 29 H 92 07/11/23 10:20 96 H 31 H 92 07/11/23 10:20 128/67 07/11/23 10:15 78 24 92 Room Air 07/11/23 10:08 92 Room Air 07/11/23 10:08 36.7 C 93 H 20 115/52 L 88 L Room Air O2 Flow Rate 07/11/23 15:23 07/11/23 14:37 2 07/11/23 14:20 2 07/11/23 13:30 07/11/23 13:00 07/11/23 12:30 04/12/24 12:00 07/11/23 11:56 07/11/23 11:37 07/11/23 11:37 07/11/23 11:30 07/11/23 11:00 07/11/23 10:30 07/11/23 10:20 07/11/23 10:20 07/11/23 10:15 07/11/23 10:08 07/11/23 10:08 Laboratory Results Laboratory Results - last 24 hr 07/11/23 07/11/23 07/11/23 13:01 15:31 16:09 WBC RBC Hgb Hct MCV MCH MCHC RDW Std Deviation RDW Coeff of Sera Plt Count MPV Immature Gran % (Auto) Neut % (Auto) Lymph % (Auto) Griggs % (Auto) Eos % (Auto) Baso % (Auto) Neut # (Auto) Lymph # (Auto) Griggs # (Auto) Eos # (Auto) Baso # (Auto) Immature Gran # (Auto) PT Pending INR Pending APTT Pending PTT Ratio Pending Sodium Potassium Chloride Carbon Dioxide Anion Gap BUN Creatinine Est Cr Clr Drug Dosing Est GFR ( Amer) Est GFR (Non-Af Amer) BUN/Creatinine Ratio Glucose POC Glucose 165 H Calcium Total Bilirubin AST ALT Alkaline Phosphatase Troponin I High Sens 1271.0 H* D B-Natriuretic Peptide Total Protein Albumin Globulin Albumin/Globulin Ratio Lipase Adenovirus (PCR) B. pertussis DNA (PCR) B.parapertussis DNA PCR C. pneumoniae DNA (PCR) Coronavirus OC43 (PCR) Coronavirus HKU1 (PCR) Coronavirus 229E (PCR) SARS-CoV-2 (PCR) Coronavirus NL63 (PCR) Human Metapneumovir PCR Influenza Type A (PCR) Influenza Type B (PCR) M. pneumoniae (PCR) Parainfluenza 1 (PCR) Parainfluenza 2 (PCR) Parainfluenza 3 (PCR) Parainfluenza 4 (PCR) RSV (PCR) Entero/Rhino (PCR) 07/11/23 Unknown WBC 8.38 RBC 3.09 L Hgb 9.4 L Hct 29.1 L MCV 94.2 MCH 30.4 MCHC 32.3 RDW Std Deviation 52.2 H RDW Coeff of Sera 15.2 H Plt Count 178 MPV 10.7 Immature Gran % (Auto) 0.4 Neut % (Auto) 85.4 Lymph % (Auto) 6.0 Griggs % (Auto) 7.4 Eos % (Auto) 0.4 Baso % (Auto) 0.4 Neut # (Auto) 7.17 H Lymph # (Auto) 0.50 L Griggs # (Auto) 0.62 H Eos # (Auto) 0.03 Baso # (Auto) 0.03 Immature Gran # (Auto) 0.03 PT INR APTT PTT Ratio Sodium 139 Potassium 3.8 Chloride 103 Carbon Dioxide 25 Anion Gap 11 BUN 48 H Creatinine 4.57 H* Est Cr Clr Drug Dosing Not Reportable Est GFR ( Amer) 13.2 Est GFR (Non-Af Amer) 11.4 BUN/Creatinine Ratio 10.5 Glucose 204 H POC Glucose Calcium 8.8 Total Bilirubin 0.5 AST 20 ALT 14 Alkaline Phosphatase 52 Troponin I High Sens 810.3 H* B-Natriuretic Peptide 552 H Total Protein 6.1 Albumin 3.1 L Globulin 3.0 Albumin/Globulin Ratio 1.0 Lipase 18 Adenovirus (PCR) Not Detected B. pertussis DNA (PCR) Not Detected B.parapertussis DNA PCR Not Detected C. pneumoniae DNA (PCR) Not Detected Coronavirus OC43 (PCR) Not Detected Coronavirus HKU1 (PCR) Not Detected Coronavirus 229E (PCR) Not Detected SARS-CoV-2 (PCR) Not Detected Coronavirus NL63 (PCR) Not Detected Human Metapneumovir PCR Not Detected Influenza Type A (PCR) Not Detected Influenza Type B (PCR) Not Detected M. pneumoniae (PCR) Not Detected Parainfluenza 1 (PCR) Not Detected Parainfluenza 2 (PCR) Not Detected Parainfluenza 3 (PCR) Not Detected Parainfluenza 4 (PCR) Not Detected RSV (PCR) Not Detected Entero/Rhino (PCR) Not Detected Diagnostic Findings Echo 07/11/2023: Normal LV size. EF 55 to 60%. Hypokinesis of the mid to distal anterolateral wall. Mild LVH. Mild left atrial dilation. Borderline mild aortic stenosis. Normal RVSP. Very small pericardial effusion. ECGs personally reviewed: ECG 07/11/2023 at 1018: Sinus with PACs and PVCs. Incomplete right bundle branch block. Prolonged QT. Nonspecific ST/T wave abnormality. ECG 07/11/2023 at 1207: Sinus with PVCs. 85 bpm. Incomplete RBBB. Prolonged QT. Nonspecific ST/T wave abnormality. Labs reviewed and notable for high-sensitivity troponin of 1271 on presentation which has since trended downward to 810. BNP elevated. Significantly elevated creatinine, normal potassium, elevated glucose, anemia, normal transaminase levels. Chest x-ray 07/11/2023: Pulmonary vascular congestion per radiology. Medications Administered Current Inpatient Medications Acetaminophen (Acetaminophen 325 Mg Tab) 650 mg PO Q4H PRN PRN Reason: Pain or Fever Stop: 08/10/23 14:21 Allopurinol (Allopurinol 100 Mg Tab) 100 mg PO BID PADMINI Stop: 08/10/23 20:59 Aspirin (Aspirin 81 Mg Ectab) 81 mg PO PM PADMINI Stop: 08/10/23 20:59 Atorvastatin Calcium (Atorvastatin 40 Mg Tab) 40 mg PO PM PADMINI Stop: 08/10/23 20:59 Dextrose (Dextrose 50% 50 Ml Syringe) 25 - 50 ml IV UD PRN; Protocol PRN Reason: Hypoglycemia Protocol Stop: 08/10/23 14:21 Furosemide (Furosemide 40 Mg/4 Ml Vial) 40 mg IV BID17 PADMINI Stop: 08/10/23 16:59 Glucagon (Glucagon For Inj 1 Mg Vial) 1 mg SQ UD PRN; Protocol PRN Reason: Hypoglycemia Protocol Stop: 08/10/23 14:21 Glucose (Glucose 10 Tab/Tube) 4 - 8 tab PO UD PRN; Protocol PRN Reason: Hypoglycemia Treatment Stop: 08/10/23 14:21 Glucose (Glucose 40% Gel 15 Gm Tube) 15 - 30 gm PO UD PRN; Protocol PRN Reason: Hypoglycemia Protocol Stop: 08/10/23 14:21 Hydralazine HCl (Hydralazine Tab 50 Mg Tab) 100 mg PO QAM PADMINI Stop: 08/11/23 08:59 Hydralazine HCl (Hydralazine Tab 50 Mg Tab) 50 mg PO PM PADMINI Stop: 08/10/23 20:59 Heparin Sodium/Dextrose (Heparin Sodium/Dextrose) 25,000 units in 500 mls @ 20 mls/hr IV .Q24H PADMINI; Protocol Stop: 08/10/23 15:29 Heparin Sodium (Porcine) 4,000 (units/ Syringe) 4 mls @ 10 mls/min IV NOW ONE Stop: 07/11/23 16:31 Insulin Aspart (Insulin Aspart Per Unit Charge) 0 units SC ACHS [facility] Stop: 08/10/23 16:29 Insulin Aspart (Insulin Aspart Per Unit Charge) 0 units SC TODAY@0000,0200 [facility] Stop: 07/12/23 02:01 Metoprolol Succinate (Metoprolol Succ 50mg Ext Rel Tab) 50 mg PO QAM [facility] Stop: 08/11/23 08:59 Miscellaneous (Carbohydrates For Hypoglycemia ) 15 - 30 gm PO UD PRN PRN Reason: Hypoglycemia Protocol Stop: 08/10/23 14:21 Miscellaneous Information (Pharmacy Glycemic Mgmt Consult) 1 each N/A UD PRN PRN Reason: Consult Stop: 08/10/23 14:49 Nitroglycerin (Nitroglycerin Sl 0.4 Mg/Tab Tab) 0.4 mg SL Q5M PRN PRN Reason: Chest Pain Stop: 08/10/23 14:21 Ondansetron HCl (Ondansetron Inj 2 Mg/Ml 2 Ml Vial) 4 mg IV Q6H PRN PRN Reason: Nausea Stop: 08/10/23 14:21 Terazosin HCl (Terazosin Hcl 5 Mg Cap) 5 mg PO QAM [facility] Stop: 08/11/23 08:59 PG Care Time/CCT Total # of Minutes Spent Total Time Spent with Patient: Total time spent is greater than 50% in coordination of care (as documented) at patient's floor/unit and/or counseling patient: Coding Level of Care Code 04166 INT INP/OBS CARE 3/75MIN Diagnoses NSTEMI (non-ST elevated myocardial infarction) I21.4 Acute on chronic heart failure with preserved ejection fraction (HFpEF) I50.33 Hypertension I10 HLD (hyperlipidemia) E78.5 Anemia due to chronic kidney disease N18.9; D63.1
[2023-07-11 16:22] LABS: Partial Thromboplastin Time 28 Seconds (21-31); Prothrombin Time 10.9 Seconds (9.0-12.0)
[2023-07-11] MEDS ORDERED: INSULIN ASPART PER UNIT CHARGE SC SCH (16:30)
[2023-07-11] MEDS: FUROSEMIDE 40 MG/4 ML VIAL IV SCH (16:33)
[2023-07-11] MEDS: Heparin IV Adult Wt-Based Low-Dose w/ INITIAL Bolus Protocol IV STA (16:55)
[2023-07-11] MEDS: HEPARIN SODIUM/DEXTROSE 25,000 UNITS/500 ML BAG IV SCH (16:55)
[2023-07-11] MEDS: INSULIN ASPART PER UNIT CHARGE SC SCH (16:56)
[2023-07-11] MEDS: LANTUS PER UNIT CHARGE SC ONE (16:56)
[2023-07-11] MEDS: HEPARIN IV BOLUS 4,000 UNITS in SYRINGE 0 ML IV ONE (16:56)
[2023-07-11] MEDS: BENZONATATE 100 MG CAPSULE PO PRN (20:27)
[2023-07-11] MEDS: ASPIRIN 81 MG ECTAB PO SCH (20:28)
[2023-07-11] MEDS: allopurinoL 100 MG TAB PO SCH (20:28)
[2023-07-11] MEDS: ATORVASTATIN 40 MG TAB PO SCH (20:28)
[2023-07-11] MEDS: hydrALAZINE TAB 50 MG TAB PO SCH (20:28)
[2023-07-11] MEDS ORDERED: LANTUS PER UNIT CHARGE SQ SCH (21:00)
[2023-07-11] MEDS ORDERED: HEPARIN SOD 5,000 UNIT/0.5 ML VIAL SQ SCH (21:00)
[2023-07-11 23:41] LABS: ANTI-Xa, UFH(UnfractionatedHep 0.16 IU/ml (0.3-0.7)
--- NOTE | 2023-07-12 00:12 | Electrocardiogram Report ---
Test Reason : Blood Pressure : / mmHG Vent. Rate : 096 BPM Atrial Rate : 000 BPM P-R Int : 000 ms QRS Dur : 118 ms QT Int : 428 ms P-R-T Axes : 000 -62 096 degrees QTc Int : 540 ms Poor data quality, interpretation may be adversely affected Sinus rhythm Premature atrial complexes Premature ventricular complexes Incomplete right bundle branch block Left anterior fascicular block Nonspecific ST and T wave abnormality Prolonged QT Abnormal ECG No previous ECGs available Confirmed by Joby Staton ([id number]) on 07/12/2023 12:12:11 AM Referred By: Confirmed By:Joby Staton
--- NOTE | 2023-07-12 00:15 | Electrocardiogram Report ---
Test Reason : Blood Pressure : / mmHG Vent. Rate : 085 BPM Atrial Rate : 085 BPM P-R Int : 166 ms QRS Dur : 118 ms QT Int : 436 ms P-R-T Axes : 044 -51 -10 degrees QTc Int : 518 ms Sinus rhythm with Premature ventricular complexes Incomplete right bundle branch block Left anterior fascicular block Minimal voltage criteria for LVH, may be normal variant ( R in aVL ) Nonspecific ST and T wave abnormality Prolonged QT Abnormal ECG When compared with ECG of 11-JUL-2023 10:18, Premature atrial complexes are no longer Present Confirmed by Joby Staton ([id number]) on 07/12/2023 12:15:25 AM Referred By: REFERRED SELF Confirmed By:Joby Staton
[2023-07-12] MEDS: INSULIN ASPART PER UNIT CHARGE SC SCH (00:53)
[2023-07-12] MEDS: HEPARIN SOD (PORCINE) 1000 UNIT/ML IV ONE (02:01)
[2023-07-12] MEDS: CLOPIDOGREL BISULFATE 75 MG TAB PO SCH (08:00)
[2023-07-12] MEDS: METOPROLOL SUCC 50MG EXT REL TAB PO SCH (08:00)
[2023-07-12] MEDS: hydrALAZINE TAB 50 MG TAB PO SCH (08:00)
[2023-07-12] MEDS: TERAZOSIN HCL 5 MG CAP PO SCH (08:00)
[2023-07-12] MEDS: ISOSORBIDE MONO EXTENDED REL 30 MG TABCR PO SCH (08:01)
[2023-07-12 08:43] LABS: Albumin Level 3.1 gm/dl (3.4-5.0); BUN Creatinine Ratio 9.7 (10-20); Calcium 8.8 mg/dl (8.6-10.3); Chol HDL Ratio 2.9 (0-5); Creatinine Clr Calc Pharmacy 16.7 ml/min; Est GFR (African American) 11.9 ml/min; Est GFR (Non-African American) 10.3 ml/min; Magnesium 1.9 mg/dl (1.7-2.4); Phosphorus 3.3 mg/dl (2.5-4.9); Potassium 3.4 mmol/L (3.5-5.1)
[2023-07-12 08:52] LABS: ANTI-Xa, UFH(UnfractionatedHep 0.26 IU/ml (0.3-0.7)
[2023-07-12 08:59] LABS: Ferritin 100.3 ng/ml (8-388)
[2023-07-12] MEDS ORDERED: METOPROLOL SUCC 50MG EXT REL TAB PO SCH (09:00)
[2023-07-12 09:21] LABS: Hematocrit (blood only) 28.7 % (42.0-52.0); Hemoglobin 9.3 g/dl (14.0-18.0); Mean Corpuscular Hemoglobin 30.5 pg (25.0-34.0); Mean Corpuscular Hgb Conc 32.4 g/dL (32.0-36.0); Mean Corpuscular Volume 94.1 fL (80.0-100.0); Mean Platelet Volume 11.2 fL (9.4-12.4); Platelet Count 198 K/uL (130-400); RDW Standard Deviation 51.9 fL (36.4-46.3); Red Blood Count 3.05 M/uL (4.70-6.10); White Blood Count 7.02 K/ul (4.8-10.8)
[2023-07-12 09:22] LABS: Basophils # (auto) 0.04 K/uL (0.00-0.20); Basophils % (auto) 0.6 %; Eosinophils # (auto) 0.15 K/uL (0.00-0.50); Eosinophils % (auto) 2.1 %; Immature Granulocytes # (auto) 0.02 K/uL (0.01-0.20); Immature Granulocytes % (auto) 0.3 %; Lymphocytes # (auto) 0.96 K/uL (1.20-3.40); Lymphocytes % (auto) 13.7 %; Monocytes # (auto) 0.72 K/uL (0.11-0.59); Monocytes % (auto) 10.3 %; Neutrophils # (auto) 5.13 K/uL (1.40-6.50); Polychromasia 1+
--- NOTE | 2023-07-12 09:40 | Hospitalist Progress Note ---
Date of Service July 12, 2023 Assessment & Plan (1) 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 Bunch is a 78-year-old male who was admitted due to NSTEMI and possible acute exacerbation of HFpEF. Chest Pain // NSTEMI -Patient with substernal crushing chest pain with radiation to left shoulder and associated shortness of breath that began yesterday morning -Troponins on arrival increased from 810 to 1271 Continue to trend showing increase to 3088.5 --> 3418.5 Most recent troponin level was 2258.1 Will repeat troponins to ensure continuing downtrend -TTE (07/11/2023) -normal left ventricular size and systolic function with ejection fraction of 55 to 60%, hypokinesis of mid distal anterolateral wall, and very small pericardial effusion without evidence of tamponade. -Cardiology evaluated patient yesterday. Will proceed with medical management instead of catheterization Heparin drip for 48 hours Aspirin 81 mg daily Plavix 75 mg daily (anticipate for 1 year) Increase home metoprolol dose to 100 mg daily Change statin to a high intensity statin Isosorbide mononitrate 30 mg Recommended cardiac rehab after discharge HFpEF // Acute exacerbation -Patient with bilateral +2 pitting edema in the lower extremities, and shortness of breath in the ED -Had been taking Lasix 40 mg p.o. every morning at home but not very compliant with low salt diet at home -Chest x-ray with cardiomegaly and pulmonary vascular congestion -Echocardiogram as above -Continue Lasix 40 mg IV with monitoring of BUN and creatinine -Daily weights and strict I&O monitoring -1800 mL fluid restriction and low-sodium diet ESRD -Creatinine baseline of 4.4-4.5 -Follows with nephrology in [facility] -Patient had fistula placed in his left wrist but has not required dialysis yet -Current creatinine 4.95, which is increased from 4.57 yesterday Possible that this increase in creatinine is related to IV diuresis A.m. dose of Lasix given, but will consider holding tomorrow's dose depending on patient status and what a.m. labs show -Mild hypokalemia noted in a.m. labs (3.4). Will order p.o. replacement -Nephrology consulted Anemia management as detailed below Agree with resuming valsartan if patient's blood pressures remain high as his potassium is in acceptable range No current indication for dialysis, and advised continued monitoring of electrolytes and volume status Chronic anemia -Hemoglobin of 9.4 on arrival -Hemoglobin 9.3 today -Patient asymptomatic -Likely related to patient's history of ESRD -Iron studies ordered -Consider anemia management with Venofer DM type II -Patient uses insulin pump at home -Hemoglobin A1c of 6.2% -Pharmacy glycemic consult placed -Continue Lantus twice daily plus SSI Hyperlipidemia -AM lipid profile with total cholesterol of 96, LDL of 42, and HDL of 33 -Continue atorvastatin 40 mg p.o. Hypertension -Continue home metoprolol (increased dose as detailed above) and hydralazine HELEN -Continue CPAP at night Dispo: Discharge with PCP and cardiology follow-up once fluid status improves Diet: DM-II, low-salt diet, fluid restriction to 1800 mL VTE prophylaxis: IV heparin DNR/DNI Admission and Anticipated Discharge Date Admission Date: July 11, 2023 Supervising Physician Co-Signing Physician Notes I personally examined the patient and verified all joseph points of history and exam, discussed case, and agree with decision making with Dr Salazar feeling better breathing better ate alban[place] food ~2wks ago, symptoms progressed for about a week since. doesn't recall CHF exac before vitals noted nad heent nc at mmm breathing unlabored no accessory muscles good effort skin no rashes no pallor or icterus acute HFpEF and NSTEMI complicated by severely progressed kidney disease - med management. suspect Na intake led to pulmonary edema led to hypoxia/heart stress precipitating NSTEMI more from severe supply demand mismatch than plaque rupture/etc - obviously can't tell that for sure [facility] but this would needlessly place pt at risk. educated on low Na. ongoing med management. hopefully home soon anticoagulated, otherwise as above Subjective Mr. Bunch is a 78-year-old male with past medical history of hypertension, hyperlipidemia, diabetes type 2, HFpEF, GERD, HELEN on home CPAP, ESRD, AAA (3 cm) who presented to the emergency department yesterday due to crushing substernal chest pain with radiation to his left shoulder and associated shortness of breath more bothersome when laying down. In the ED, EKG performed and not s howing any ST segment elevations but troponins increased from 810 on arrival to 1271. Therefore, patient admitted for management of NSTEMI. Cardiology evaluated patient yesterday and after discussion they did not proceed with heart catheterization and instead proceeded with medical management. On evaluation today, patient was found to be alone, sitting on bedside chair, awake alert and oriented in all spheres, and in no acute distress. He states that he feels a lot better today compared to how he felt yesterday, is not currently feeling any chest pain or shortness of breath. He does have a cough at the time which patient states has been present chronically. Denies any fevers, chills, malaise, weakness, nausea/vomiting/diarrhea, diaphoresis, palpitations, tachycardia, or any other symptoms. Review of Systems Review of Systems: As per HPI Physical Exam Physical Exam: GENERAL: Awake alert and oriented in all spheres, afebrile, no acute distress HEENT: Atraumatic and normocephalic, EOM intact, PERRLA, difficulty hearing CARDIO: Regular rate and rhythm, no rubs murmurs or gallops appreciated PULMONARY: Clear to auscultation bilaterally, normal respiratory effort EXTREMITIES: +2 pitting edema in bilateral lower extremities, no calf tenderness Results & Data Results & Data Vital Signs (Past 12 Hours) Vital Signs Temp Pulse Pulse Resp BP Pulse Ox O2 Del Method 07/12/23 09:23 84 07/12/23 07:28 37.0 C 87 19 156/50 H 94 Nasal Cannula 07/12/23 02:20 81 23 93 07/11/23 23:53 37.6 C H 79 20 157/64 H 96 Room Air 07/11/23 23:05 84 21 94 07/11/23 22:04 88 O2 Flow Rate 07/12/23 09:23 07/12/23 07:28 2 07/12/23 02:20 2 07/11/23 23:53 07/11/23 23:05 2 07/11/23 22:04
[2023-07-12 10:07] LABS: Estimated Average Glucose 131 mg/dl; Hemoglobin A1C 6.2 % (4.5-5.6)
[2023-07-12 10:24] LABS: Troponin I High Sensitivity 2258.1 pg/ml (0-20)
--- NOTE | 2023-07-12 11:20 | Cardiology Progress Note ---
Date of Service July 12, 2023 Assessment & Plan (1) NSTEMI (non-ST elevated myocardial infarction): Plan: -high sensitivity troponin peaked at 3418. -patient currently pain free on intravenous heparin. -patient not interested in cardiac catheterization due to possibility of renal failure with contrast dye. -medical management as outlined by Dr. Staton yesterday. (2) Acute on chronic heart failure with preserved ejection fraction (HFpEF): Plan: -improving on Lasix 40 mg IV b.i.d.. (3) Hypertension: Plan: -adequate control on current regimen. (4) HLD (hyperlipidemia): Plan: -continue atorvastatin. Admission and Anticipated Discharge Date Admission Date: July 11, 2023 Subjective The patient is resting comfortably in bed without complaints of chest pain or dyspnea. He is anxious for hospital discharge Physical Exam Physical Exam: In general this is an obese white male in no acute distress. HEENT exam is negative. Neck is supple with full carotid upstrokes. No carotid bruits. Jugular is pressure is flat at 90. There is no thyromegaly. Cardiovascular exam reveals a regular rhythm with distant heart sounds. No obvious murmurs. No S3. Lungs are clear without rales, rhonchi, or wheezes. Abdomen is obese without bruits. Extremities reveal intact radial artery pulses bilaterally. Trace to 1+ pretibial edema is noted. Results & Data Vital Signs (Past 12 Hours) Vital Signs Temp Pulse Pulse Resp BP Pulse Ox O2 Del Method 07/12/23 09:35 Nasal Cannula 07/12/23 09:23 84 07/12/23 07:28 37.0 C 87 19 156/50 H 94 Nasal Cannula 07/12/23 02:20 81 23 93 07/11/23 23:53 37.6 C H 79 20 157/64 H 96 Room Air O2 Flow Rate 07/12/23 09:35 2 07/12/23 09:23 07/12/23 07:28 2 07/12/23 02:20 2 07/11/23 23:53 Diagnostic Findings conveyor monitor is benign. PG Care Time/CCT Total # of Minutes Spent Total Time Spent with Patient: Total time spent is greater than 50% in coordination of care (as documented) at patient's floor/unit and/or counseling patient: Coding Level of Care Code 50677 SUB INP/OBS CARE 3/50MIN Diagnoses NSTEMI (non-ST elevated myocardial infarction) I21.4 Acute on chronic heart failure with preserved ejection fraction (HFpEF) I50.33 Hypertension I10 HLD (hyperlipidemia) E78.5
--- NOTE | 2023-07-12 12:52 | Nephrology Progress Note ---
Date of Service July 12, 2023 Assessment & Plan (1) 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: Plan: Baseline creatinine ~4.5 mg/dL. [facility] BP controlled. Volume status improving with diuretics. Electrolytes acceptable. 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 AVF mature for use, if needed. Continue furosemide to encourage slightly negative fluid balance. Current Rx 40 mg IV BID. Document strict I/O's and daily weight. Maintain low sodium diet. Hold valsartan. Renal diet. Medications are appropriately dosed for kidney function. (2) NSTEMI (non-ST elevated myocardial infarction): Plan: Cardiology following. TTE reviewed - hypokinesis of mid distal anterolateral wall. Medical management. PCI deferred due to kidney dysfunction. Symptoms resolved. Metoprolol increased to 100 mg daily. Remains on heparin gtt. Plavix + aspirin. Statin. Isosorbide mononitrate added this AM. (3) Anemia due to chronic kidney disease: Plan: Hgb stable at 9.3. Tsat 14, ferritin 100. Venofer 200 mg IV x 1 dose now. Repeat H/H tomorrow AM. (4) Hypertension: Plan: BP acceptable. Volume status improving. Metoprolol and hydralazine as Rx. Valsartan held. (5) T2DM (type 2 diabetes mellitus): Plan: Ozempic held. No SGLT2i due to kidney function. Hold ARB in setting of ZAC. Admission and Anticipated Discharge Date Admission Date: July 11, 2023 Subjective No acute events overnight. Eduardo was seen and evaluated with his at the bedside this AM. He feels well. Significant improvement in fluid retention reported. No chest pains or palpitations. No shortness of breath. Eduardo reports good urine output. Review of Systems Review of Systems: All systems reviewed & are unremarkable except as noted in HPI & below Physical Exam Constitutional: well developed and + obese; no acute distress Eyes: + anicteric sclerae; no corneal abnormal ity ENMT: external ear and nose normal, oropharynx normal Mouth: oral mucous membranes not dry Neck: normal visual inspection and trachea midline Respiratory: normal respiratory effort Auscultation: lungs clear to auscultation bilaterally Cardiovascular: Rate/Rhythm: regular rate Heart Sounds: normal S1 and normal S2 Extremities: + edema and + AV fistula Musculoskeletal: Extremities: no cyanosis and no clubbing Skin: normal turgor; no jaundice Neurologic: Motor/Sensory: no tremor and no asterixis Psychiatric: Orientation: alert and oriented x 3 Results & Data Vital Signs (Past 12 Hours) Vital Signs Temp Pulse Pulse Resp BP Pulse Ox O2 Del Method 07/12/23 11:24 37.0 C 76 19 129/64 95 Nasal Cannula 07/12/23 09:35 Nasal Cannula 07/12/23 09:23 84 07/12/23 07:28 37.0 C 87 19 156/50 H 94 Nasal Cannula 07/12/23 02:20 81 23 93 O2 Flow Rate 07/12/23 11:24 07/12/23 09:35 2 07/12/23 09:23 07/12/23 07:28 2 07/12/23 02:20 2 Laboratory Results Laboratory Results - last 24 hr 07/11/23 07/11/23 07/11/23 13:01 15:31 16:09 WBC RBC Hgb Hct MCV MCH MCHC RDW Std Deviation RDW Coeff of Sera Plt Count MPV Immature Gran % (Auto) Neut % (Auto) Lymph % (Auto) [place] % (Auto) Eos % (Auto) Baso % (Auto) Neut # (Auto) Lymph # (Auto) [place] # (Auto) Eos # (Auto) Baso # (Auto) Immature Gran # (Auto) Polychromasia PT 10.9 INR 1.0 APTT 28 PTT Ratio 1.0 Heparin Anti-Xa, Unfract Sodium Potassium Chloride Carbon Dioxide Anion Gap BUN Creatinine Est Cr Clr Drug Dosing Est GFR ( Amer) Est GFR (Non-Af Amer) BUN/Creatinine Ratio Glucose POC Glucose 165 H Estimat Average Glucose Hemoglobin A1c Calcium Phosphorus Magnesium Iron TIBC Unsaturated IBC Transferrin % Sat Ferritin Troponin I High Sens 1271.0 H* D Albumin Triglycerides Cholesterol LDL Cholesterol, Calc VLDL Cholesterol, Calc HDL Cholesterol Cholesterol/HDL Ratio 07/11/23 07/11/23 07/11/23 19:04 20:11 22:49 WBC RBC Hgb Hct MCV MCH MCHC RDW Std Deviation RDW Coeff of Sera Plt Count MPV Immature Gran % (Auto) Neut % (Auto) Lymph % (Auto) [place] % (Auto) Eos % (Auto) Baso % (Auto) Neut # (Auto) Lymph # (Auto) [place] # (Auto) Eos # (Auto) Baso # (Auto) Immature Gran # (Auto) Polychromasia PT INR APTT PTT Ratio Heparin Anti-Xa, Unfract 0.16 L Sodium Potassium Chloride Carbon Dioxide Anion Gap BUN Creatinine Est Cr Clr Drug Dosing Est GFR ( Amer) Est GFR (Non-Af Amer) BUN/Creatinine Ratio Glucose POC Glucose 121 H Estimat Average Glucose Hemoglobin A1c Calcium Phosphorus Magnesium Iron TIBC Unsaturated IBC Transferrin % Sat Ferritin Troponin I High Sens 3088.5 H* D Albumin Triglycerides Cholesterol LDL Cholesterol, Calc VLDL Cholesterol, Calc HDL Cholesterol Cholesterol/HDL Ratio 07/12/23 07/12/23 07/12/23 00:37 07:26 07:59 WBC 7.02 RBC 3.05 L Hgb 9.3 L Hct 28.7 L MCV 94.1 MCH 30.5 MCHC 32.4 RDW Std Deviation 51.9 H RDW Coeff of Sera 15.0 H Plt Count 198 MPV 11.2 Immature Gran % (Auto) 0.3 Neut % (Auto) 73.0 Lymph % (Auto) 13.7 [place] % (Auto) 10.3 Eos % (Auto) 2.1 Baso % (Auto) 0.6 Neut # (Auto) 5.13 Lymph # (Auto) 0.96 L [place] # (Auto) 0.72 H Eos # (Auto) 0.15 Baso # (Auto) 0.04 Immature Gran # (Auto) 0.02 Polychromasia 1+ PT INR APTT PTT Ratio Heparin Anti-Xa, Unfract 0.26 L Sodium 141 Potassium 3.4 L Chloride 104 Carbon Dioxide 27 Anion Gap 10 BUN 48 H Creatinine 4.95 H* D Est Cr Clr Drug Dosing 16.7 Est GFR ( Amer) 11.9 Est GFR (Non-Af Amer) 10.3 BUN/Creatinine Ratio 9.7 L Glucose 105 H POC Glucose 103 H 88 Estimat Average Glucose 131 Hemoglobin A1c 6.2 H Calcium 8.8 Phosphorus 3.3 Magnesium 1.9 Iron 25 L TIBC 181 L Unsaturated IBC 156 Transferrin % Sat 14 L Ferritin 100.3 Troponin I High Sens 2258.1 H* D Albumin 3.1 L Triglycerides 106 Cholesterol 96 LDL Cholesterol, Calc 42 VLDL Cholesterol, Calc 21 HDL Cholesterol 33 Cholesterol/HDL Ratio 2.9 07/12/23 07/12/23 11:22 Unknown WBC RBC Hgb Hct MCV MCH MCHC RDW Std Deviation RDW Coeff of Sera Plt Count MPV Immature Gran % (Auto) Neut % (Auto) Lymph % (Auto) [place] % (Auto) Eos % (Auto) Baso % (Auto) Neut # (Auto) Lymph # (Auto) [place] # (Auto) Eos # (Auto) Baso # (Auto) Immature Gran # (Auto) Polychromasia PT INR APTT PTT Ratio Heparin Anti-Xa, Unfract Sodium Potassium Chloride Carbon Dioxide Anion Gap BUN Creatinine Est Cr Clr Drug Dosing Est GFR ( Amer) Est GFR (Non-Af Amer) BUN/Creatinine Ratio Glucose POC Glucose 95 Estimat Average Glucose Hemoglobin A1c Calcium Phosphorus Magnesium Iron TIBC Unsaturated IBC Transferrin % Sat Ferritin Troponin I High Sens 3418.5 H* Albumin Triglycerides Cholesterol LDL Cholesterol, Calc VLDL Cholesterol, Calc HDL Cholesterol Cholesterol/HDL Ratio PG Care Time/CCT Total # of Minutes Spent Total Time Spent with Patient: Total time spent is greater than 50% in coordination of care (as documented) at patient's floor/unit and/or counseling patient: Coding Level of Care Code 52675 SUB INP/OBS CARE 3/50MIN Diagnoses 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 N18.5 NSTEMI (non-ST elevated myocardial infarction) I21.4 Anemia due to chronic kidney disease N18.9; D63.1 Hypertension I10 T2DM (type 2 diabetes mellitus) E11.9
[2023-07-12] MEDS: IRON SUCROSE 200 MG in 0.9 % SODIUM CHLORIDE 100 ML IV SCH (13:14)
--- NOTE | 2023-07-12 16:00 | Billing Data ---
Date of Service July 12, 2023 Coding Level of Care Code 70857 SUB INP/OBS CARE MIN
[2023-07-12] MEDS: LANTUS PER UNIT CHARGE SQ SCH (17:07)
[2023-07-12 17:20] LABS: ANTI-Xa, UFH(UnfractionatedHep 0.16 IU/ml (0.3-0.7)
[2023-07-12] MEDS: HEPARIN IV BOLUS 4,000 UNITS in SYRINGE 0 ML IV ONE (18:05)
[2023-07-12] MEDS: POTASSIUM CHLORIDE 20 MEQ/15 ML UDC PO SCH (20:25)
[2023-07-12] MEDS ORDERED: MAGNESIUM OXIDE 400 MG TAB PO SCH (21:00)
[2023-07-13 00:42] LABS: ANTI-Xa, UFH(UnfractionatedHep 0.39 IU/ml (0.3-0.7)
[2023-07-13] MEDS: INSULIN ASPART PER UNIT CHARGE SC ONE (02:30)
[2023-07-13 06:43] LABS: Basophils # (auto) 0.04 K/uL (0.00-0.20); Basophils % (auto) 0.6 %; Eosinophils # (auto) 0.28 K/uL (0.00-0.50); Eosinophils % (auto) 4.3 %; Hematocrit (blood only) 27.7 % (42.0-52.0); Hemoglobin 9.1 g/dl (14.0-18.0); Immature Granulocytes # (auto) 0.04 K/uL (0.01-0.20); Immature Granulocytes % (auto) 0.6 %; Lymphocytes # (auto) 0.85 K/uL (1.20-3.40); Lymphocytes % (auto) 13.1 %; Mean Corpuscular Hemoglobin 30.4 pg (25.0-34.0); Mean Corpuscular Hgb Conc 32.9 g/dL (32.0-36.0); Mean Corpuscular Volume 92.6 fL (80.0-100.0); Mean Platelet Volume 10.5 fL (9.4-12.4); Monocytes # (auto) 0.68 K/uL (0.11-0.59); Monocytes % (auto) 10.5 %; Neutrophils # (auto) 4.59 K/uL (1.40-6.50); Neutrophils % (auto) 70.9 %; Platelet Count 223 K/uL (130-400); RDW Coefficient of Variation 14.8 % (11.5-14.5); Red Blood Count 2.99 M/uL (4.70-6.10); White Blood Count 6.48 K/ul (4.8-10.8)
[2023-07-13 07:35] LABS: BUN Creatinine Ratio 11.8 (10-20); Calcium 8.6 mg/dl (8.6-10.3); Creatinine Clr Calc Pharmacy 16.9 ml/min; Est GFR (African American) 12.6 ml/min; Est GFR (Non-African American) 10.8 ml/min; Potassium 3.6 mmol/L (3.5-5.1)
[2023-07-13] MEDS: MAGNESIUM OXIDE 400 MG TAB PO SCH (08:39)
--- NOTE | 2023-07-13 11:31 | Nephrology Progress Note ---
Date of Service July 13, 2023 Assessment & Plan (1) 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: Plan: Baseline creatinine ~4.5 mg/dL. [facility] BP acceptable. Remains slightly hypervolemic without significant response to furosemide yesterday. Electrolytes acceptable. 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 AVF mature for use, if needed. Continue furosemide to encourage slightly negative fluid balance. I increased the Rx from 40 mg IV BID to 60 mg IV BID this AM. Document strict I/O's and daily weight. Maintain low sodium diet. Hold valsartan. Renal diet. Medications are appropriately dosed for kidney function. (2) NSTEMI (non-ST elevated myocardial infarction): Plan: Cardiology following. TTE - hypokinesis of mid distal anterolateral wall. PCI deferred due to kidney dysfunction. Remains on heparin gtt. Plavix + aspirin. Statin. Beta-ritesh and LA nitrate dosing per cardiology. Denies recurrent symptoms. (3) Anemia due to chronic kidney disease: Plan: Hgb stable at 9.3. Tsat 14, ferritin 100. Venofer 200 mg IV x 1 dose yesterday. Venofer 300 mg IV x 1 today. Epogen 4000 units provided today. Repeat H/H tomorrow AM. (4) Hypertension: Plan: BP acceptable. Valsartan held. (5) T2DM (type 2 diabetes mellitus): Plan: Ozempic held. No SGLT2i due to kidney function. Hold ARB in setting of ZAC. Admission and Anticipated Discharge Date Admission Date: July 11, 2023 Subjective No acute events overnight. Eduardo feels well this morning. No chest pains or palpitations. He denies shortness of breath. Reports some increased fluid retention particularly in the legs. Weight is stable. Non-oliguric. No significant response to IV furosemide this morning. Review of Systems Review of Systems: All systems reviewed & are unremarkable except as noted in HPI & below Physical Exam Constitutional: well developed and + obese; no acute distress Eyes: + anicteric sclerae; no corneal abnormal ity ENMT: external ear and nose normal, oropharynx normal Mouth: oral mucous membranes not dry Neck: normal visual inspection and trachea midline Respiratory: normal respiratory effort Auscultation: lungs clear to auscultation bilaterally Cardiovascular: Rate/Rhythm: regular rate Heart Sounds: normal S1 and normal S2 Extremities: + edema and + AV fistula Musculoskeletal: Extremities: no cyanosis and no clubbing Skin: normal turgor; no jaundice Neurologic: Motor/Sensory: no tremor and no asterixis Psychiatric: Orientation: alert and oriented x 3 Results & Data Vital Signs (Past 12 Hours) Vital Signs Temp Pulse Pulse Resp BP Pulse Ox Pulse Ox 07/13/23 11:11 36.8 C 75 19 141/79 H 93 07/13/23 08:06 37.0 C 86 20 131/78 91 07/13/23 08:05 07/13/23 07:15 82 07/13/23 03:46 36.5 C 76 18 163/70 H 89 L 07/13/23 00:18 89 L 07/12/23 23:39 36.6 C 82 21 162/58 H 85 L O2 Del Method O2 Del Method 07/13/23 11:11 Room Air 07/13/23 08:06 Room Air 07/13/23 08:05 Room Air 07/13/23 07:15 07/13/23 03:46 BiPAP 07/13/23 00:18 BiPAP 07/12/23 23:39 BiPAP Laboratory Results Laboratory Results - last 24 hr 07/12/23 07/12/23 07/12/23 11:22 16:06 16:32 WBC RBC Hgb Hct MCV MCH MCHC RDW Std Deviation RDW Coeff of Sera Plt Count MPV Immature Gran % (Auto) Neut % (Auto) Lymph % (Auto) [place] % (Auto) Eos % (Auto) Baso % (Auto) Neut # (Auto) Lymph # (Auto) [place] # (Auto) Eos # (Auto) Baso # (Auto) Immature Gran # (Auto) Heparin Anti-Xa, Unfract 0.16 L Sodium Potassium Chloride Carbon Dioxide Anion Gap BUN Creatinine Est Cr Clr Drug Dosing Est GFR ( Amer) Est GFR (Non-Af Amer) BUN/Creatinine Ratio Glucose POC Glucose 95 90 Calcium Troponin I High Sens 2490.0 H* 07/12/23 07/12/23 07/13/23 20:22 23:58 02:04 WBC RBC Hgb Hct MCV MCH MCHC RDW Std Deviation RDW Coeff of Sera Plt Count MPV Immature Gran % (Auto) Neut % (Auto) Lymph % (Auto) [place] % (Auto) Eos % (Auto) Baso % (Auto) Neut # (Auto) Lymph # (Auto) [place] # (Auto) Eos # (Auto) Baso # (Auto) Immature Gran # (Auto) Heparin Anti-Xa, Unfract 0.39 Sodium Potassium Chloride Carbon Dioxide Anion Gap BUN Creatinine Est Cr Clr Drug Dosing Est GFR ( Amer) Est GFR (Non-Af Amer) BUN/Creatinine Ratio Glucose POC Glucose 72 102 H Calcium Troponin I High Sens 1861.6 H* D 07/13/23 07/13/23 07/13/23 06:08 06:13 07:37 WBC 6.48 RBC 2.99 L Hgb 9.1 L Hct 27.7 L MCV 92.6 MCH 30.4 MCHC 32.9 RDW Std Deviation 50.0 H RDW Coeff of Sera 14.8 H Plt Count 223 MPV 10.5 Immature Gran % (Auto) 0.6 Neut % (Auto) 70.9 Lymph % (Auto) 13.1 [place] % (Auto) 10.5 Eos % (Auto) 4.3 Baso % (Auto) 0.6 Neut # (Auto) 4.59 Lymph # (Auto) 0.85 L [place] # (Auto) 0.68 H Eos # (Auto) 0.28 Baso # (Auto) 0.04 Immature Gran # (Auto) 0.04 Heparin Anti-Xa, Unfract 0.30 Sodium 140 Potassium 3.6 Chloride 103 Carbon Dioxide 27 Anion Gap 10 BUN 56 H Creatinine 4.75 H* Est Cr Clr Drug Dosing 16.9 Est GFR ( Amer) 12.6 Est GFR (Non-Af Amer) 10.8 BUN/Creatinine Ratio 11.8 Glucose 92 POC Glucose 103 H Calcium 8.6 Troponin I High Sens 07/13/23 11:10 WBC RBC Hgb Hct MCV MCH MCHC RDW Std Deviation RDW Coeff of Sera Plt Count MPV Immature Gran % (Auto) Neut % (Auto) Lymph % (Auto) [place] % (Auto) Eos % (Auto) Baso % (Auto) Neut # (Auto) Lymph # (Auto) [place] # (Auto) Eos # (Auto) Baso # (Auto) Immature Gran # (Auto) Heparin Anti-Xa, Unfract Sodium Potassium Chloride Carbon Dioxide Anion Gap BUN Creatinine Est Cr Clr Drug Dosing Est GFR ( Amer) Est GFR (Non-Af Amer) BUN/Creatinine Ratio Glucose POC Glucose 123 H Calcium Troponin I High Sens PG Care Time/CCT Total # of Minutes Spent Total Time Spent with Patient: Total time spent is greater than 50% in coordination of care (as documented) at patient's floor/unit and/or counseling patient: Coding Level of Care Code 68742 SUB INP/OBS CARE 3/50MIN Diagnoses 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 N18.5 NSTEMI (non-ST elevated myocardial infarction) I21.4 Anemia due to chronic kidney disease N18.9; D63.1 Hypertension I10 T2DM (type 2 diabetes mellitus) E11.9
[2023-07-13] MEDS: IRON SUCROSE 300 MG in SODIUM CHLORIDE 0.9% 250 ML IV ONE (11:57)
[2023-07-13] MEDS: FUROSEMIDE INJ 20 MG/2 ML VIAL IV ONE (11:57)
--- NOTE | 2023-07-13 12:03 | Hospitalist Progress Note ---
Date of Service July 13, 2023 Assessment & Plan (1) 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 Bunch is a 78-year-old male who was admitted due to NSTEMI and acute exacerbation of HFpEF. HFpEF // Acute exacerbation -Patient with bilateral +2 pitting edema in the lower extremities, and shortness of breath in the ED -Had been taking Lasix 40 mg p.o. every morning at home but not very compliant with low salt diet at home -Chest x-ray with cardiomegaly and pulmonary vascular congestion -Echocardiogram as above -Fluid balance -500s mL today with urine output of 0.75 mL/kg/hr -Weight gradually decreasing since arrival: 131.2 kg --> 124.8 kg --> 124.058 kg -Fluid balance slightly improved but patient still appears hypervolemic to my exam -Patient's SOB could be related to his hx of HELEN since his lungs were clear at the time of my evaluation, but will continue to monitor. If SOB persists, will consider CXR. -Continue diuresis and 1800 mL fluid restriction and low-sodium diet Lasix dose increased from 40 to 60mg bid by nephrology team. Chest Pain // NSTEMI -Patient who arrived at the ED with substernal crushing chest pain with r adiation to left shoulder and associated shortness of breath -Troponins on arrival increased from 810 to 1271 Troponins peaked at 3418.5, then decreased to 2258.1 -TTE (07/11/2023) -normal left ventricular size and systolic function with ejection fraction of 55 to 60%, hypokinesis of mid distal anterolateral wall, and very small pericardial effusion without evidence of tamponade. -Cardiology evaluated patient yesterday. Will proceed with medical management instead of catheterization due to risk over kidneys given history of CKD-V Heparin drip for 48 hours Aspirin 81 mg daily Plavix 75 mg daily (anticipate for 1 year) Increase home metoprolol dose to 100 mg daily Change statin to a high intensity statin Isosorbide mononitrate 30 mg Recommended cardiac rehab after discharge ESRD -Creatinine baseline of 4.4-4.5 -Follows with nephrology in [facility] -Patient had fistula placed in his left wrist but has not required dialysis yet -Current creatinine slighlty improved compared to yesterday (4.95 --> 4.75) -Electrolytes in acceptable range -Nephrology consulted Anemia management as detailed below No current indication for dialysis, and advised continued monitoring of electrolytes and volume status Chronic anemia -Hemoglobin of 9.4 on arrival -Hemoglobin 9.1 today -Patient asymptomatic -Likely related to patient's history of ESRD -Iron studies showing iron deficiency -Venofer dose ordered for today. Epogen 4000 U also given today as recc by nephrology -Monitor am labs DM type II -Patient uses insulin pump at home -Hemoglobin A1c of 6.2% -Pharmacy glycemic consult placed -Continue Lantus twice daily plus SSI Hyperlipidemia -Lipid profile with total cholesterol of 96, LDL of 42, and HDL of 33 -Continue atorvastatin 40 mg p.o. Hypertension -Continue home metoprolol (increased dose as detailed above) and hydralazine HELEN -Continue CPAP at night Dispo: Discharge with PCP and cardiology follow-up once fluid status improves Diet: DM-II, low-salt diet, fluid restriction to 1800 mL VTE prophylaxis: IV heparin DNR/DNI Admission and Anticipated Discharge Date Admission Date: July 11, 2023 Supervising Physician Co-Signing Physician Notes I personally examined the patient and verified all joseph points of history and exam, discussed case, and agree with decision making with Dr Salazar feeling better breathing better thinks breathing was a little rougher this morning being off routine but feels like he's back on track and feeling better vitals noted nad heent nc at mmm breathing unlabored no accessory muscles good effort lungs sl diminished bibasilar no r/r/w skin no rashes no pallor or icterus acute HFpEF and NSTEMI complicated by severely progressed kidney disease - med management. suspect Na intake led to pulmonary edema led to hypoxia/heart stress precipitating NSTEMI more from severe supply demand mismatch than plaque rupture/etc - obviously can't tell that for sure without LHC but this would needlessly place pt at risk given severely progressed CKD. yesterday educated on low Na. ongoing med management. hopefully home soon anticoagulated, otherwise as above Subjective Mr. Bunch is a 78-year-old male with past medical history of hypertension, hyperlipidemia, diabetes type 2, HFpEF, GERD, HELEN on home CPAP, ESRD, AAA (3 cm) who presented to the emergency department yesterday due to crushing substernal chest pain with radiation to his left shoulder and associated shortness of breath more bothersome when laying down. In the ED, EKG performed and not showing any ST segment elevations but troponins increased from 810 on arrival to 1271. Therefore, patient admitted for management of NSTEMI. Patient also found to be hypervolemic and so was also admitted for management of acute HFpEF exacerbation. On evaluation today, patient was found to be alone, sitting on bedside chair, awake alert and oriented in all spheres, and in no acute distress. He refers feeling slightly more SOB this morning compared to yesterday. No worsening of symptoms otherwise. Denies having chest pain, palpitations, tachycardia, lightheadedness, fevers, chills, or any other symptom. Review of Systems Review of Systems: As per HPI. Physical Exam Physical Exam: GENERAL: Awake alert and oriented in all spheres, afebrile, no acute distress HEENT: Atraumatic and normocephalic, EOM intact, PERRLA, difficulty hearing CARDIO: Regular rate and rhythm, no rubs murmurs or gallops appreciated PULMONARY: Clear to auscultation bilaterally, normal respiratory effort EXTREMITIES: +2 pitting edema in bilateral lower extremities, no calf tenderness Results & Data Results & Data Vital Signs (Past 12 Hours) Vital Signs Temp Pulse Pulse Resp BP Pulse Ox Pulse Ox 07/13/23 11:11 36.8 C 75 19 141/79 H 93 07/13/23 08:06 37.0 C 86 20 131/78 91 07/13/23 08:05 07/13/23 07:15 82 07/13/23 03:46 36.5 C 76 18 163/70 H 89 L 07/13/23 00:18 89 L O2 Del Method O2 Del Method 07/13/23 11:11 Room Air 07/13/23 08:06 Room Air 07/13/23 08:05 Room Air 07/13/23 07:15 07/13/23 03:46 BiPAP 07/13/23 00:18 BiPAP Resident Activity Tracking Resident Involvement: Resident Care Provided Care Provided: Adult [facility]
[2023-07-13] MEDS: EPOETIN ALFA 4,000 UNIT/ML VIAL SQ ONE (12:51)
--- NOTE | 2023-07-13 14:21 | Billing Data ---
Date of Service July 13, 2023 Coding Level of Care Code 80067 SUB INP/OBS CARE
--- NOTE | 2023-07-13 16:16 | Cardiology Progress Note ---
Date of Service July 13, 2023 Assessment & Plan (1) NSTEMI (non-ST elevated myocardial infarction): Plan: No recurrent chest pain. No objective signs of continuing ischemia. Heparin infusion discontinued. We will continue him on dual anti-platelet therapy, h igh-dose atorvastatin in an increased dose of metoprolol succinate. Cardiac catheterization discussed again today, but deferred given his improving clinical course and risk for contrast nephropathy/dialysis (2) Acute on chronic heart failure with preserved ejection fraction (HFpEF): Plan: Lasix increased to 60 mg twice daily to affect better diuresis. Some element of pulmonary vascular congestion on exam today but clinically improved. (3) Hypertension: Plan: Borderline (4) HLD (hyperlipidemia): Plan: -continue atorvastatin. Admission and Anticipated Discharge Date Admission Date: July 11, 2023 Subjective This afternoon the patient claimed he feeling well. He reported ambulating around the room with some dyspnea this morning but improved this afternoon. No recurrent chest pain since he was in the emergency room. No dizziness or light headedness. Review of Systems Review of Systems: Per HPI Physical Exam Physical Exam: Gen.: No acute distress. Alert and oriented. HEENT: Anicteric sclera. Neck: Thick neck. Bilateral carotid bruit versus radiation of cardiac murmur. Normal carotid upstrokes bilaterally. Cardiac: Regular. Normal S1-S2. 2/6 early peaking systolic ejection murmur best heard at the right upper sternal border. Pulmonary: Crackles at the bases bilaterally. Abdomen: Soft, nontender, nondistended, obese Extremities: Mild lower extremity edema bilaterally. Psychiatric: Affect appears appropriate. Results & Data Vital Signs (Past 12 Hours) Vital Signs Temp Pulse Pulse Resp BP Pulse Ox O2 Del Method 07/13/23 11:11 36.8 C 75 19 141/79 H 93 Room Air 07/13/23 08:06 37.0 C 86 20 131/78 91 Room Air 07/13/23 08:05 Room Air 07/13/23 07:15 82 Laboratory Results Abnormal Lab Results 07/12/23 07/12/23 07/12/23 16:06 16:32 20:22 WBC RBC Hgb Hct MCV MCH MCHC RDW Std Deviation RDW Coeff of Sera Plt Count MPV Immature Gran % (Auto) Neut % (Auto) Lymph % (Auto) [place] % (Auto) Eos % (Auto) Baso % (Auto) Neut # (Auto) Lymph # (Auto) [place] # (Auto) Eos # (Auto) Baso # (Auto) Immature Gran # (Auto) Heparin Anti-Xa, Unfract 0.16 L Sodium Potassium Chloride Carbon Dioxide Anion Gap BUN Creatinine Est Cr Clr Drug Dosing Est GFR ( Amer) Est GFR (Non-Af Amer) BUN/Creatinine Ratio Glucose POC Glucose 90 72 Calcium Troponin I High Sens 2490.0 H* 07/12/23 07/13/23 07/13/23 23:58 02:04 06:08 WBC 6.48 RBC 2.99 L Hgb 9.1 L Hct 27.7 L MCV 92.6 MCH 30.4 MCHC 32.9 RDW Std Deviation 50.0 H RDW Coeff of Sera 14.8 H Plt Count 223 MPV 10.5 Immature Gran % (Auto) 0.6 Neut % (Auto) 70.9 Lymph % (Auto) 13.1 [place] % (Auto) 10.5 Eos % (Auto) 4.3 Baso % (Auto) 0.6 Neut # (Auto) 4.59 Lymph # (Auto) 0.85 L [place] # (Auto) 0.68 H Eos # (Auto) 0.28 Baso # (Auto) 0.04 Immature Gran # (Auto) 0.04 Heparin Anti-Xa, Unfract 0.39 0.30 Sodium Potassium Chloride Carbon Dioxide Anion Gap BUN Creatinine Est Cr Clr Drug Dosing Est GFR ( Amer) Est GFR (Non-Af Amer) BUN/Creatinine Ratio Glucose POC Glucose 102 H Calcium Troponin I High Sens 1861.6 H* D 07/13/23 07/13/23 07/13/23 06:13 07:37 11:10 WBC RBC Hgb Hct MCV MCH MCHC RDW Std Deviation RDW Coeff of Sera Plt Count MPV Immature Gran % (Auto) Neut % (Auto) Lymph % (Auto) [place] % (Auto) Eos % (Auto) Baso % (Auto) Neut # (Auto) Lymph # (Auto) [place] # (Auto) Eos # (Auto) Baso # (Auto) Immature Gran # (Auto) Heparin Anti-Xa, Unfract Sodium 140 Potassium 3.6 Chloride 103 Carbon Dioxide 27 Anion Gap 10 BUN 56 H Creatinine 4.75 H* Est Cr Clr Drug Dosing 16.9 Est GFR ( Amer) 12.6 Est GFR (Non-Af Amer) 10.8 BUN/Creatinine Ratio 11.8 Glucose 92 POC Glucose 103 H 123 H Calcium 8.6 Troponin I High Sens Diagnostic Findings Echocardiogram obtained 07/11/2023: Normal LV systolic function with ejection fraction 55-60%. Mid to distal anterolateral wall. Hypokinetic. Mild LVH. Mild left atrial dilation. Aortic valve sclerosis with possible mild stenosis. Very small pericardial effusion. PG Care Time/CCT Total # of Minutes Spent Total Time Spent with Patient: Total time spent is greater than 50% in coordination of care (as documented) at patient's floor/unit and/or counseling patient: Coding Level of Care Code 44550 SUB INP/OBS CARE 2/35MIN Diagnoses NSTEMI (non-ST elevated myocardial infarction) I21.4 Acute on chronic heart failure with preserved ejection fraction (HFpEF) I50.33 Hypertension I10 HLD (hyperlipidemia) E78.5
[2023-07-13] MEDS: FUROSEMIDE 40 MG/4 ML VIAL IV SCH (17:07)
--- NOTE | 2023-07-14 07:35 | Pharmacy Report ---
Pharmacy Glycemic Short Note 2 - Date of Service July 14, 2023 - Glycemic Short BSG Results (Last 24 hours): 07/13/23 07/13/23 07/13/23 06:13 07:37 11:10 Glucose 92 POC Glucose 103 H 123 H 07/13/23 07/13/23 07/14/23 16:32 20:33 07:15 Glucose POC Glucose 116 H 102 H 106 H OUTPATIENT ANTIDIABETIC REGIMEN: Spoke extensively with the patient at time of consultation (with his Johana as the patient is [id number]). He is on the following as an outpatient: * U500 insulin pump - basal only, no bolus. Patient removed pump 07/09 at 1630. * 9526-1680: no basal rate * 5760-9486: 0.9 units/hr * 6494-6991: 1.15 units/hr * 5069-0601: 1.3 units/hr * Total daily U500 insulin dose: 17.55 units/day - patient noted the units above are in *U500* units and therefore the equivalent in U100 units would be 5x the amount listed, which would be 87.75 units of U100 equivalent per day * Novolog prn * Uses a CHO ratio of 3 g CHO/unit, BUT only if he consumes >70 g CHO. If he doesn't consume 70 g CHO - no Novolog. * Semaglutide qwk * HbA1c unknown - ordered for 07/12/23 ASSESSMENT: 07/13: * Patient well controlled with BSGs [phone] mg/dL over the past 24 hours. Fasting BSG this morning was 106 mg/dL. Patient received 32 units of basal yesterday, 15 of which was basal. This is significantly less than what has been required as an outpatient. Will continue on current regimen. * Patient is eating consistently and has not yet required dialysis. 07/10 * 78 yo M with T2DM admitted with possible NSTEMI vs demand ischemia and worsening renal function with the possibility of initiating dialysis soon. U500 pump that patient uses exclusively for basal insulin was removed by patient yesterday at 4:30pm * No prior records to review * Spoke extensively with patient and his - see above for home regimen. Home regimen significantly basal heavy - likely covers some prandial needs. Also, if patient needs dialysis, this can drastically reduce insulin needs, thus higher basal doses at this time could contribute to future hypoglycemia. Will be less aggressive with basal, but will add in Novolog checks including overnight. PLAN FOR INPATIENT GLYCEMIC CONTROL: * Hold U500 pump - patient's plans to bring supplies in tomorrow AM for *eventual* transition back to pump prior to discharge, if indicated. Discussed that would be using basal/bolus as an inpatient and that pump should not be utilized simultaneously. Noted that it would be up to the provider to determine when the pump should be utilized. * Basal insulin * Lantus 15 or 20 units at dinner based on BSG (See MAR for details) * Bolus insulin * NovoLog per scale ACHS or Q6hrs while NPO * Goal Range: Low 120 mg/dL - High 160 mg/dL * Correction Factor: 25 mg/dL/unit * Nutritional / Prandial insulin per carb ratio of 1 unit per 8 grams CHO consumed
[2023-07-14 08:26] LABS: Basophils # (auto) 0.04 K/uL (0.00-0.20); Basophils % (auto) 0.6 %; Eosinophils # (auto) 0.25 K/uL (0.00-0.50); Eosinophils % (auto) 3.6 %; Hematocrit (blood only) 31.2 % (42.0-52.0); Hemoglobin 10.1 g/dl (14.0-18.0); Immature Granulocytes # (auto) 0.05 K/uL (0.01-0.20); Immature Granulocytes % (auto) 0.7 %; Lymphocytes # (auto) 0.73 K/uL (1.20-3.40); Lymphocytes % (auto) 10.7 %; Mean Corpuscular Hemoglobin 30.5 pg (25.0-34.0); Mean Corpuscular Hgb Conc 32.4 g/dL (32.0-36.0); Mean Corpuscular Volume 94.3 fL (80.0-100.0); Mean Platelet Volume 9.7 fL (9.4-12.4); Monocytes # (auto) 0.68 K/uL (0.11-0.59); Monocytes % (auto) 9.9 %; Neutrophils % (auto) 74.5 %; Platelet Count 232 K/uL (130-400); RDW Coefficient of Variation 14.9 % (11.5-14.5); RDW Standard Deviation 51.3 fL (36.4-46.3); Red Blood Count 3.31 M/uL (4.70-6.10); White Blood Count 6.85 K/ul (4.8-10.8)
[2023-07-14 08:42] LABS: Est GFR (African American) 11.8 ml/min; Est GFR (Non-African American) 10.2 ml/min; Magnesium 1.9 mg/dl (1.7-2.4); Potassium 3.9 mmol/L (3.5-5.1)
--- NOTE | 2023-07-14 10:15 | Nephrology Progress Note ---
Date of Service July 14, 2023 Assessment & Plan (1) 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: Plan: Baseline creatinine ~4.5 mg/dL. [facility] BP acceptable. Volume status improved. Electrolytes acceptable. No emergent indication for RESIDENT CARE ASSISTANT. AVF mature for use, if needed. Furosemide switched to home Rx of 40 mg daily this AM. Document strict I/O's and daily weight. Maintain low sodium diet. Hold valsartan. Renal diet. Medications are appropriately dosed for kidney function. (2) NSTEMI (non-ST elevated myocardial infarction): Plan: Heparin gtt stopped. No recurrent anginal symptoms. Medical management per cardiology. (3) Anemia due to chronic kidney disease: Plan: Hgb stable. Venofer 200 mg IV today. Epogen 4000 units provided yesterday. (4) Hypertension: Plan: BP acceptable. Valsartan held. (5) T2DM (type 2 diabetes mellitus): Plan: Ozempic held. No SGLT2i due to kidney function. Hold ARB in setting of ZAC. Admission and Anticipated Discharge Date Admission Date: July 11, 2023 Subjective No acute events overnight. Mr. Bunch feels well this morning. He denies chest pain. He denies palpitations. No shortness of breath. Edema improving. Review of Systems Review of Systems: All systems reviewed & are unremarkable except as noted in HPI & below Physical Exam Constitutional: well developed; no acute distress Eyes: + anicteric sclerae ENMT: external ear and nose normal, oropharynx normal Neck: normal visual inspection and trachea midline Respiratory: normal respiratory effort Auscultation: lungs clear to auscultation bilaterally Cardiovascular: Rate/Rhythm: regular rate Heart Sounds: normal S1 and normal S2 Extremities: + edema and + AV fistula Musculoskeletal: Extremities: no cyanosis and no clubbing Skin: normal turgor; no jaundice Neurologic: Motor/Sensory: no tremor and no asterixis Psychiatric: Orientation: alert and oriented x 3 Results & Data Vital Signs (Past 12 Hours) Vital Signs Temp Pulse Pulse Resp BP Pulse Ox Pulse Ox 07/14/23 07:17 36.7 C 79 20 156/57 H 92 07/14/23 03:25 36.8 C 72 21 178/71 H 90 07/14/23 00:00 76 07/14/23 00:00 91 07/13/23 23:30 36.6 C 77 21 161/77 H 90 O2 Del Method O2 Del Method 07/14/23 07:17 Room Air 07/14/23 03:25 BiPAP 07/14/23 00:00 07/14/23 00:00 BiPAP 07/13/23 23:30 BiPAP Laboratory Results Laboratory Results - last 24 hr 07/13/23 07/13/23 07/13/23 11:10 16:32 20:33 WBC RBC Hgb Hct MCV MCH MCHC RDW Std Deviation RDW Coeff of Sera Plt Count MPV Immature Gran % (Auto) Neut % (Auto) Lymph % (Auto) [place] % (Auto) Eos % (Auto) Baso % (Auto) Neut # (Auto) Lymph # (Auto) [place] # (Auto) Eos # (Auto) Baso # (Auto) Immature Gran # (Auto) Sodium Potassium Chloride Carbon Dioxide Anion Gap BUN Creatinine Est Cr Clr Drug Dosing Est GFR ( Amer) Est GFR (Non-Af Amer) BUN/Creatinine Ratio Glucose POC Glucose 123 H 116 H 102 H Calcium Magnesium 07/14/23 07/14/23 07:15 08:08 WBC 6.85 RBC 3.31 L Hgb 10.1 L Hct 31.2 L MCV 94.3 MCH 30.5 MCHC 32.4 RDW Std Deviation 51.3 H RDW Coeff of Sera 14.9 H Plt Count 232 MPV 9.7 Immature Gran % (Auto) 0.7 Neut % (Auto) 74.5 Lymph % (Auto) 10.7 [place] % (Auto) 9.9 Eos % (Auto) 3.6 Baso % (Auto) 0.6 Neut # (Auto) 5.10 Lymph # (Auto) 0.73 L [place] # (Auto) 0.68 H Eos # (Auto) 0.25 Baso # (Auto) 0.04 Immature Gran # (Auto) 0.05 Sodium 140 Potassium 3.9 Chloride 102 Carbon Dioxide 28 Anion Gap 10 BUN 60 H Creatinine 5.01 H* Est Cr Clr Drug Dosing 16.0 Est GFR ( Amer) 11.8 Est GFR (Non-Af Amer) 10.2 BUN/Creatinine Ratio 12.0 Glucose 131 H POC Glucose 106 H Calcium 9.0 Magnesium 1.9 PG Care Time/CCT Total # of Minutes Spent Total Time Spent with Patient: Total time spent is greater than 50% in coordination of care (as documented) at patient's floor/unit and/or counseling patient: Coding Level of Care Code 33953 SUB INP/OBS CARE 3/50MIN Diagnoses 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 N18.5 NSTEMI (non-ST elevated myocardial infarction) I21.4 Anemia due to chronic kidney disease N18.9; D63.1 Hypertension I10 T2DM (type 2 diabetes mellitus) E11.9
--- NOTE | 2023-07-14 10:35 | Hospitalist Progress Note ---
Date of Service July 14, 2023 Assessment & Plan (1) 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 Bunch is a 78-year-old male who was admitted due to NSTEMI and acute exacerbation of HFpEF. HFpEF // Acute exacerbation -Patient with bilateral +2 pitting edema in the lower extremities, and shortness of breath in the ED -Had been taking Lasix 40 mg p.o. every morning at home but not very compliant with low salt diet at home -Fluid balance -1771 mL today with urine output of 1.03 mL/kg/hr -Weight gradually decreasing since arrival: 131.2 kg --> 124.8 kg --> 124.058 kg --> 124 kg -Fluid balance improved -Discussed with visual merchandising specialist, and will switch lasix to home dose and reassess in the am Chest Pain // NSTEMI -Patient who arrived at the ED with substernal crushing chest pain with radiation to left shoulder and associated shortness of breath -Troponins on arrival increased from 810 to 1271. Peaked at 3418.5 -TTE (07/11/2023) -normal left ventricular size and systolic function with ejection fraction of 55 to 60%, hypokinesis of mid distal anterolateral wall, and very small pericardial effusion without evidence of tamponade. -Cardiology evaluated patient yesterday. Will proceed with medical management instead of catheterization due to risk over kidneys given history of CKD-V s/p Heparin drip for 48 hours Aspirin 81 mg daily Plavix 75 mg daily (anticipate for 1 year) Increase home metoprolol dose to 100 mg daily Change statin to a high intensity statin Isosorbide mononitrate 30 mg Recommended cardiac rehab after discharge ESRD -Creatinine baseline of 4.4-4.5 -Patient had fistula placed in his left wrist but has not required dialysis yet -Creatinine increased to 5.01 today after increase in lasix dose to 60mg IV -Lasix changed to 40 po. -Monitor am labs -Nephrology following Chronic anemia -Hemoglobin 10.1 today -Iron studies showing iron deficiency -Being managed with Venofer and Epogen, as per nephro recc -Monitor am labs DM type II -Patient uses insulin pump at home -Hemoglobin A1c of 6.2% -Pharmacy glycemic consult placed -Continue Lantus twice daily plus SSI Hyperlipidemia -Lipid profile with total cholesterol of 96, LDL of 42, and HDL of 33 -Continue atorvastatin 40 mg p.o. Hypertension -Continue home metoprolol (increased dose as detailed above) and hydralazine HELEN -Continue CPAP at night Dispo: Discharge with PCP and cardiology follow-up once fluid status improves Diet: DM-II, low-salt diet, fluid restriction to 1800 mL VTE prophylaxis: ambulation DNR/DNI Admission and Anticipated Discharge Date Admission Date: July 11, 2023 Supervising Physician Co-Signing Physician Notes Attending attestation Pt seen and examined in concert with Dr. Salazar. In agreement with the documented findings as noted in the resident documentation with any exceptions or additions as noted here. Feeling that he is returning to his clinical baseline though understanding re: ongoing monitoring during return to baseline diuresis. On examination, S1/S2 nl RRR no MCG. CTAB. Abd NT/ND BS+ve NSTEMI in the setting of HFpEF w/ acute exacerbation - cardiology consultation - continue ASA, clopidogrel, statin therapy, imdur. Transition to PO furosemide at home dose, see below for CKDV. Monitor I/O/Wt CKD V - nephrology consultation - check Cr in AM and monitor tolerance of baseline diuretic therapy as well as I/O over 24 hour to ensure appropriateness of therapy Anemia, chronic, microcytic - venofer and epogen with monitoring of labs as noted Else see resident documentation as noted. Subjective Mr. Bunch is a 78-year-old male with past medical history of hypertension, hyperlipidemia, diabetes type 2, HFpEF, GERD, HELEN on home CPAP, ESRD, AAA (3 cm) who presented to the emergency department yesterday due to crushing substernal chest pain with radiation to his left shoulder and associated shortness of breath more bothersome when laying down. In the ED, EKG performed and not showing any ST segment elevations but troponins increased from 810 on arrival to 1271. Therefore, patient admitted for management of NSTEMI. Patient also found to be hypervolemic and so was also admitted for management of acute HFpEF exacerbation. On evaluation today, patient was found to be alone, sitting on bedside chair, awake alert and oriented in all spheres, and in no acute distress. He refers feeling "better than he has in the last 6 months". Denies chest pain, SOB, HAGAN, fevers, chills, weakness, or any other symptom. Review of Systems Review of Systems: As per HPI. Physical Exam Physical Exam: GENERAL: Awake alert and oriented in all spheres, afebrile, no acute distress HEENT: Atraumatic and normocephalic, EOM intact, PERRLA, difficulty hearing CARDIO: Regular rate and rhythm, no rubs murmurs or gallops appreciated PULMONARY: Clear to auscultation bilaterally, normal respiratory effort EXTREMITIES: +2 pitting edema in bilateral lower extremities, no calf tenderness Results & Data Results & Data Vital Signs (Past 12 Hours) Vital Signs Temp Pulse Pulse Resp BP Pulse Ox Pulse Ox 07/14/23 07:17 36.7 C 79 20 156/57 H 92 07/14/23 03:25 36.8 C 72 21 178/71 H 90 07/14/23 00:00 76 07/14/23 00:00 91 07/13/23 23:30 36.6 C 77 21 161/77 H 90 O2 Del Method O2 Del Method 07/14/23 07:17 Room Air 07/14/23 03:25 BiPAP 07/14/23 00:00 07/14/23 00:00 BiPAP 07/13/23 23:30 BiPAP Resident Activity Tracking Resident Involvement: Resident Care Provided Care Provided: Adult Hospital Medicine
[2023-07-14] MEDS: IRON SUCROSE 200 MG in 0.9 % SODIUM CHLORIDE 100 ML IV ONE (10:44)
[2023-07-14] MEDS: FUROSEMIDE 40 MG TAB PO SCH (10:44)
--- NOTE | 2023-07-14 14:54 | Cardiology Progress Note ---
Date of Service July 14, 2023 Assessment & Plan (1) NSTEMI (non-ST elevated myocardial infarction): Plan: No recurrent chest pain. We discussed cardiac catheterization and will defer this in light of his significant renal dysfunction and absence of symptoms. (2) Acute on chronic heart failure with preserved ejection fraction (HFpEF): Plan: Now on oral Lasix 40 mg daily. (3) Hypertension: Plan: Improved today. (4) HLD (hyperlipidemia): Plan: -continue atorvastatin. Plan From a cardiac standpoint He would be safe for discharge. He can continue aspirin 81 mg, Plavix 75 mg daily, metoprolol succinate 100 mg daily and his outpatient dose of furosemide. Admission and Anticipated Discharge Date Admission Date: July 11, 2023 Subjective This afternoon the patient claimed he feeling well. He reported ambulating around the with few symptoms. Minimal dyspnea. No recurrent chest pain since admission. Review of Systems Review of Systems: Per HPI Physical Exam Physical Exam: Gen.: No acute distress. Alert and oriented. HEENT: Anicteric sclera. Neck: Thick neck. Bilateral carotid bruit versus radiation of cardiac murmur. Normal carotid upstrokes bilaterally. Cardiac: Regular. Normal S1-S2. 2/6 early peaking systolic ejection murmur best heard at the right upper sternal border. Pulmonary: Crackles at the bases bilaterally. Abdomen: Soft, nontender, nondistended, obese Extremities: Mild lower extremity edema bilaterally. Psychiatric: Affect appears appropriate. Results & Data Vital Signs (Past 12 Hours) Vital Signs Temp Pulse Pulse Resp BP Pulse Ox O2 Del Method 07/14/23 11:23 36.8 C 73 19 129/74 92 Room Air 07/14/23 08:05 Room Air 07/14/23 07:54 75 07/14/23 07:17 36.7 C 79 20 156/57 H 92 Room Air 07/14/23 03:25 36.8 C 72 21 178/71 H 90 BiPAP PG Care Time/CCT Total # of Minutes Spent Total Time Spent with Patient: Total time spent is greater than 50% in coordination of care (as documented) at patient's floor/unit and/or counseling patient: Coding Level of Care Code 67231 SUB INP/OBS CARE 2/35MIN Diagnoses NSTEMI (non-ST elevated myocardial infarction) I21.4 Acute on chronic heart failure with preserved ejection fraction (HFpEF) I50.33 Hypertension I10 HLD (hyperlipidemia) E78.5
[2023-07-15] MEDS: ACETAMINOPHEN 325 MG TAB PO PRN (04:37)
[2023-07-15 07:27] LABS: BUN Creatinine Ratio 12.7 (10-20); Calcium 8.8 mg/dl (8.6-10.3); Creatinine Clr Calc Pharmacy 15.9 ml/min; Est GFR (African American) 11.7 ml/min; Est GFR (Non-African American) 10.1 ml/min; Magnesium 1.9 mg/dl (1.7-2.4)
--- NOTE | 2023-07-15 09:43 | Nephrology Progress Note ---
Date of Service July 15, 2023 Assessment & Plan (1) 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: Plan: Good urine output. BP has remained reasonable. Volume status acceptable. Electrolytes normal. No emergent indication for NEURORADIOLOGIST. AVF mature for use. Continue furosemide per home Rx of 40 mg daily. Hold valsartan. Renal diet. Medications are appropriately dosed for kidney function. [facility] weeks of [facility]. Check a serum metabolic profile within 5-7 days of discharge. (2) NSTEMI (non-ST elevated myocardial infarction): (3) Anemia due to chronic kidney disease: Plan: Hgb stable. Venofer 300 mg today for total of 1000 mg since admission. Epogen 4000 units provided 07/12. (4) Hypertension: Plan: BP acceptable. Valsartan held. (5) T2DM (type 2 diabetes mellitus): Plan: Ozempic held. No SGLT2i due to kidney function. Hold ARB in setting of ZAC. Admission and Anticipated Discharge Date Admission Date: July 11, 2023 Subjective No acute events overnight. Eduardo feels well this morning. He would like to go home today. He denies significant shortness of breath. No chest pains. No palpitations. Some lower extremity edema. Remains in a slightly negative fluid balance. Review of Systems Review of Systems: All systems reviewed & are unremarkable except as noted in HPI & below Physical Exam Constitutional: well developed and + obese; no acute distress Eyes: + anicteric sclerae; no corneal abnormal ity ENMT: external ear and nose normal, oropharynx normal Mouth: oral mucous membranes not dry Neck: normal visual inspection and trachea midline Respiratory: normal respiratory effort Auscultation: lungs clear to auscultation bilaterally Cardiovascular: Rate/Rhythm: regular rate Heart Sounds: normal S1 and normal S2 Extremities: + edema and + AV fistula Musculoskeletal: Extremities: no cyanosis and no clubbing Skin: normal turgor; no jaundice Neurologic: Motor/Sensory: no tremor and no asterixis Psychiatric: Orientation: alert and oriented x 3 Results & Data Vital Signs (Past 12 Hours) Vital Signs Temp Pulse Pulse Resp BP Pulse Ox Pulse Ox 07/15/23 07:48 36.7 C 71 18 176/69 H 95 07/15/23 02:34 36.8 C 79 20 142/54 H 90 07/15/23 00:00 71 07/15/23 00:00 91 07/14/23 23:04 36.8 C 73 18 143/79 H 91 O2 Del Method O2 Del Method 07/15/23 07:48 Room Air 07/15/23 02:34 BiPAP 07/15/23 00:00 07/15/23 00:00 BiPAP 07/14/23 23:04 CPAP Laboratory Results Laboratory Results - last 24 hr 07/14/23 07/14/23 07/14/23 11:21 15:50 20:16 Sodium Potassium Chloride Carbon Dioxide Anion Gap BUN Creatinine Est Cr Clr Drug Dosing Est GFR ( Amer) Est GFR (Non-Af Amer) BUN/Creatinine Ratio Glucose POC Glucose 118 H 154 H 119 H Calcium Magnesium 07/15/23 07/15/23 06:06 07:18 Sodium 139 Potassium 4.0 Chloride 105 Carbon Dioxide 26 Anion Gap 8 BUN 64 H Creatinine 5.03 H* Est Cr Clr Drug Dosing 15.9 Est GFR ( Amer) 11.7 Est GFR (Non-Af Amer) 10.1 BUN/Creatinine Ratio 12.7 Glucose 103 H POC Glucose 104 H Calcium 8.8 Magnesium 1.9 PG Care Time/CCT Total # of Minutes Spent Total Time Spent with Patient: Total time spent is greater than 50% in coordination of care (as documented) at patient's floor/unit and/or counseling patient: Coding Level of Care Code 96807 SUB INP/OBS CARE 3/50MIN Diagnoses 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 N18.5 NSTEMI (non-ST elevated myocardial infarction) I21.4 Anemia due to chronic kidney disease N18.9; D63.1 Hypertension I10 T2DM (type 2 diabetes mellitus) E11.9
[2023-07-15] MEDS: IRON SUCROSE 200 MG in 0.9 % SODIUM CHLORIDE 100 ML IV ONE (10:30)
--- NOTE | 2023-07-15 10:36 | Discharge Summary ---
Date of Service July 15, 2023 Admission HPI Per Admitting Provider Eduardo is a 78yo male with PMH of HTN, HLD, T2DM, CHF, and GERD among others. He presented for chest pain with radiation into his left shoulder on 07/10. He woke up this morning around 0400 due to lack of oxygen. Patient uses a BiPAP at night and has for the past 20 years. He reports that he woke up with trouble breathing, and took off his BiPAP; sitting up made it easier to breathe. He also notes he had pain across his left chest and left shoulder, which he described as a constant "crushing" pain. No radiation down the left arm or to the upper back. Patient did take Tylenol 1000 mg at that time, which helped the pain a little bit. He reports the pain was only 4/10 at its worst, but was constant and reports that he does have a high pain tolerance. Patient does not normally get chest pain with exertion or at rest. He does note he had a rotator cuff 10 years ago, but denies any recent injuries to the left shoulder or chest wall. Patient took all of his regular morning medications today; denies any recent change in medications. He does have a history of diabetes, and reports that he uses around 80 units daily with his insulin pump; checks his blood sugar 4 times daily. He has a fistula in his left wrist, and follows with Vipin Guzmán (Nephrology; [facility], [place]), but has not currently had dialysis; the fistula was placed in the event that he would need dialysis. He reports that his last creatinine was around 4.4 (this is around baseline today). He has not been eating as much recently; he does have salt the foods in his diet, and reports he had salsa 2 nights ago, but denies any extra salt in his diet. He reports that he does have a history of abdominal aortic distention, but this is around 3 cm, and he has it checked regularly. His chest pain was relieved with nitro in the ED. Associated symptoms include dry heaves over the past 3 days. Patient reports that he is a former smoker; quit in May 1999. He denies any recent alcohol use. No supplemental oxygen at home, but he does report that he has a CPAP that he uses at night x 20 years. No PMH of heart stents, ME, or PE/DVT. Patient uses a cane at home for ambulation, and occasionally a walker. He does report recently falling x 2 in March 2023; cut his forehead, and went to the hospital. Patient is hypertensive at 144/58 and tachypneic at 34 RPM at time of admission; SpO2 94% on 3L NC. ED Course: ASA 324mg Placed on high-flow Lasix 40mg IV ROS: Patient endorses chills x 3 nights, night-sweats x 3 nights, lightheadedness, RODRIGUEZ, changes in vision (difficulty with focusing and occasional blurriness), chest pain, left shoulder pain, SOB at rest, ongoing HAGAN, dry cough (which he calls his "nervous" cough), pleuritic CP, dry heaves, leg swelling, and chronic LE neuropathy. Patient denies fever, loss of vision, abdominal pain, N/V/D, change in urinary/bowel habits, burning with urination, or blood in the urine or stool. Principal Diagnosis General: Moderate respiratory distress; pleasant affect; non-toxic appearing; well-nourished; cooperative; 94% SpO2 on 3L NC HEENT: normocephalic, atraumatic; no scleral icterus; PERRLA; moist mucus membrane; vision intact; hard of hearing Neck: supple; negative for JVP; no lymphadenopathy; trachea midline Skin: warm, dry without signs of tenting; no cyanosis; no rashes, bruising, lesions, or erythema noted CV: chest wall NTP; pain is not reproducible with palpation of the left chest wall or left shoulder; RRR; S1/S2 normal; no murmurs/rubs/gallops; pulses intact and symmetric at radial, DP, and PT Lungs: no acute respiratory distress; symmetrical chest wall expansion; clear breath sounds across all lung mireles w/o adventitious sounds; no wheezing ABD: Soft, NTP; BS present; no rebound/guarding; moderate distention secondary to body habitus MSK: no tics or fasciculations; +2 pitting edema in the lower extremities bilaterally; fistula in the left wrist Neuro: A&Ox3; normal mood and affect; fluent speech; no focal deficits; diminished sensation in the LEs b/l, but intact and symmetric Discharge Exam GENERAL: Awake alert and oriented in all spheres, afebrile, no acute distress HEENT: Atraumatic and normocephalic, EOM intact, PERRLA, difficulty hearing CARDIO: Regular rate and rhythm, no rubs murmurs or gallops appreciated PULMONARY: Clear to auscultation bilaterally, normal respiratory effort EXTREMITIES: +1 pitting edema in bilateral lower extremities, no calf tenderness Discharge Data Allergies Allergy/AdvReac Type Severity Reaction Status Date / Time tramadol Allergy Mild Unknown Unverified 07/11/23 12:32 citalopram Allergy Unknown Unknown Unverified 07/11/23 12:32 diltiazem Allergy Unknown Unknown Unverified 07/11/23 12:32 niacin Allergy Unknown Unknown Unverified 07/11/23 12:32 Consultations 07/11/23 11:36 ED Decision to Admit Stat 07/11/23 13:26 Consult Nephrology Routine 07/11/23 15:03 Consult Cardiology Routine Hospital Course (1) 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 Bunch is a 78-year-old male who was admitted due to NSTEMI and acute exacerbation of HFpEF. HFpEF // Acute exacerbation (Resolved) -Managed with IV Lasix with good urine output and correction of fluid status -Advised of low salt diet after discharge to minimize risk of recurrence of CHF exacerbation -Weight decreased from 131.2kg to 123.1kg today -Consider cardiac rehab Chest Pain // NSTEMI (acute, stable) -Patient who arrived at the ED with substernal crushing chest pain with radiation to left shoulder and associated shortness of breath -Troponins on arrival increased from 810 to 1271. Peaked at 3418.5 -TTE (07/11/2023) -normal left ventricular size and systolic function with ejection fraction of 55 to 60%, hypokinesis of mid distal anterolateral wall, and very small pericardial effusion without evidence of tamponade. -No cath done due to CKD, and so will proceed with medical management with the meds listed below. Scripts sent to patient's pharmacy to continue after discharge. s/p Heparin drip for 48 hours Aspirin 81 mg daily Plavix 75 mg daily (anticipate for 1 year) Increase home metoprolol dose to 100 mg daily Change statin to a high intensity statin Isosorbide mononitrate 30 mg Recommended cardiac rehab after discharge ESRD (Chronic, stable) -Patient had fistula placed in his left wrist but has not required dialysis yet -Creatinine stable at 5.03 -Will continue home dose of lasix at 40mg daily -Will hold patient's valsartan and ozempic until repeat labs in 5 days -Encouraged ptient to get nephrology f/u in [place] within 2 weeks after discharge Chronic anemia (Chronic, stable) -Recent Hemoglobin 10.1 DM type II (Chronic, stable) -Hemoglobin A1c of 6.2% -Continue home insulin pump Hyperlipidemia (Chronic, stable) -Lipid profile with total cholesterol of 96, LDL of 42, and HDL of 33 -Continue atorvastatin 40 mg p.o. Hypertension (Chronic, stable) -Home metoprolol dose increased to 100mg daily -Continue home hydralazine - Hold Valsartan as detailed above. HELEN (Chronic, stable) -Continue CPAP at night Patient found stable and fit to be discharged today. Total Time Total Time Spent Total Time Spent (In Minutes): As per attending attestation. Discharge Plan Discharge Items Patient Disposition: Home - Self-Care Reason For Visit: chest pain Discharge Diagnosis: CHF exacerbation, NSTEMI Activity: Per Instructions section Non-emergency contact: Primary Care Provider, Slide Fasteners Inspector and Workplace Rehabilitation Officer Call non-emergency contact if: your symptoms worsen and your temperature is above 101 Follow-up/Referrals: [facility] [Primary Care Provider] - (within 2 weeks after discharge. Patient's will be calling for appoinments. ) Diet: Carb Consistent or DM2, Heart Healthy and Low Sodium (2gm) Fluids: 1800ml (7 cups) Ambulatory Orders: Basic Metabolic Panel (Routine) Timeframe: 5 Days Location: Determined by Patient Ordered By: Angelique Geronimo Attending Provider Instructions: You were admitted to the hospital due to chest pain and shortness of breath. While in the emergency department your heart proteins were elevated on two measurements, which raised concern for a heart attack. This in combination with your symptoms had us admit your for management of a heart attack, but the swelling in your legs and progressive shortness of breath also suggested a heart failure exacerbation. We were giving you Lasix through your IV to help with moving the excess fluid out with successful decrease in your fluid status. We spoke with your cardiologists, who discussed possible heart catheterization due to your heart attack, but ultimately the decision was made to not proceed with this due to the risk this procedure could pose over your kidneys. Therefore you will be managed medically through the adjustment of medications you were already taking and adding some new medications. You will be able to find the details as to these medications below. We also spoke with the nephrologists given your history of kidney disease to get their input. They evaluated you during the time we were giving you the IV Lasix and today they found that your kidney function was acceptable with the oral version of this medication, and believed you would be able to go home today with this dose. Therefore, we find you fit and stable to be discharged today, but advise close follow up with your cinder crane operator and should make an appointment with them through the [place] so you can be seen within 2 weeks after discharge. We will also be ordering some blood work to be done in 5-7 days to see how your kidneys are functioning. A discharge summary will be sent to your primary care physician to ensure continuity of care. Please bring this discharge summary with you to your next office appointment so that your provider can review it at that time. Follow-up appointments: Make a follow-up appointment with your PCP within the next week. It is very important that you follow up with them shortly after discharge from the hospital. Make a follow-up appointment with a Workplace Rehabilitation Officer within the next 2 weeks. It is very important that you follow up with them shortly after discharge from the hospital. Keep all your follow-up appointments as already scheduled. If you cannot make an appointment, notify your provider. Medications: Your medication list has been reviewed and reconciled upon discharge to ensure accuracy and continuity of care. An updated list of all your medications is included with your hospital discharge paperwork. Please review this list closely, and make note of any changes. Please take Furosemide (Lasix) 40 mg by mouth every day Please take Aspirin 81 mg by mouth every day Please take Clopidogrel (Plavix) 75 mg by mouth every day. Unless your PCP or your die cast engineer says otherwise, it is possible you may be on this medication for close to 1 year. Your home Metoprolol succinate dose has been increased to 100 mg every day. Please take Atorvastatin 40 mg by mouth every day. Please take Isosorbide Mononitrate 30mg by mouth every day. You also have an order for a BMP that should be done in 5 days. Please DO NOT take your Valsartan until after you repeat your labs in 5 days and you discuss with either your PCP or your cinder crane operator. Please DO NOT take your Semaglutide (Ozempic) until after you repeat your labs in 5 days and you discuss with either your PCP or your cinder crane operator. If you have any issues filling these prescriptions, please call [phone] and ask to leave a message for Dr. Salazar. Take your medications as instructed; do not skip a dose of your medicines. Make sure all of your doctors know every medicine you are taking (including [id number] medicines, vitamins, and supplements). Call your primary care provider before taking any new medicines (including over- the-counter medicines, vitamins, and supplements), because some of these may interact with your current medications, or may make your symptoms worse. Tell your primary care provider if you cannot afford your medications. CONTACT YOUR PRIMARY CARE PROVIDER if you experience any of the following: Worsening of symptoms Fever, chills, or fatigue Difficulty following your treatment plan, or difficulty taking medications CALL 911 OR GO TO THE EMERGENCY DEPARTMENT if you experience any of the following: Sudden, severe abdominal pain or nausea/vomiting Severe chest pain, or chest pain that radiates (moves) to your jaw or arm Sudden, severe shortness of breath or difficulty breathing Thank you for allowing us to participate in your care. Pending Studies at Discharge: No Stand-Alone Forms: My [facility], Smoking Cessation Medications and DC Order Prescriptions: New clopidogrel 75 mg Tablet 75 mg PO QAM Qty: 30 0RF metoprolol succinate 50 mg Tablet Extended Release 24 Hr 100 mg PO QAM Qty: 60 0RF isosorbide mononitrate 30 mg Tablet Extended Release 24 Hr 30 mg PO QAM Qty: 30 0RF Continued Aspirin Enteric Coated (Ecotrin Or Generic *) 81 MG ENTERIC COATED TAB 81 mg PO PM Qty: 0 multivitamin Tablet 1 tab PO QAM Qty: 0 furosemide 40 mg Tablet 40 mg PO QAM Qty: 0 ATORVASTATIN (LIPITOR) 40 MG tablet 40 mg PO PM Qty: 0 terazosin 5 mg capsule 5 mg PO QAM allopurinol 100 mg tablet 100 mg PO BID cyanocobalamin (vitamin B-12) 500 mcg Tablet 500 mcg PO PM hydralazine 100 mg Tablet 100 mg PO QAM hydralazine 50 mg Tablet 50 mg PO PM fluticasone furoate-vilanterol [Breo Ellipta] 100-25 mcg/dose blister with device 1 inh INHALATION QAM (DME) Insulin Human Regular (Insulin Regular Pump) Pump Held valsartan 320 mg Tablet 320 mg PO PM Qty: 0 Hold Instructions: Resume on 07/21/23. Held due to renal function. Please discuss with your cinder crane operator after you have your labs drawn in 5 days prior to restarting it. semaglutide 1 mg INJ WK Hold Instructions: Resume on 07/21/23. Please discuss with your cinder crane operator after you have your labs drawn to see if re-starting your Semaglutide would be appropriate with your renal function Rx Instructions: friday Discontinued metoprolol succinate 50 mg Tablet Extended Release 24 Hr 50 mg PO DAILY Discharge Orders: Discharge Order (Routine); Ordered 07/15/23 Ordered By: Angelique Hauser/Other Patient Handouts: Managing Type 2 Diabetes, Special Foot Care for Diabetes Admission Data Admit Date/Time: 07/11/23 12:50 Attending Provider: Jeffrey Charlton Admit Provider: Wyatt Hassan Primary Care Provider: [facility] Other Providers: Lea English; Wyatt Hassan; Joceline Silver; Joby Staton Other Interventions: Discharge Summary Assessment (RN) Last Done: 07/15/23 14:00 Supervising Physician Co-Signing Physician Notes Attending attestation Pt seen and examined in concert with Dr. Salazar. In agreement with the documented findings as noted in the resident documentation with any exceptions or additions as noted here. Ongoing improvement in respiratory status and tolerating diuresis at baseline level. On examination, S1/S2 nl RRR no MCG. CTAB. Abd NT/ND BS+ve NSTEMI in the setting of HFpEF w/ acute exacerbation - cardiology consultation - continue ASA, clopidogrel, statin therapy, imdur. Tolerating baseline PO furosemide at home dose, see below for CKDV. Encourage monitor weights at home w/ follow up with CHF clinic CKD V - nephrology consultation - tolerating home medication load with stable creatinine. Close follow up through PCP with repeat recommended. Anemia, chronic, microcytic - venofer and epogen with monitoring of labs Else see resident documentation as noted. Total attending physician time spent with this patient's care on the day of discharge: 35 minutes.
== END 2023-07-15 15:35 | disposition home or self-care (01) | DRG 280 ==
LOC: ED 10:07 → 2E 12:50 → SUATTDRO 12:50 → 2E 13:57

== ENCOUNTER 2023-10-19 17:37 | Inpatient (IN) ==
--- NOTE | 2023-10-19 18:00 | Emergency Department Note ---
Impression & Plan ZAC (acute kidney injury), Elevated troponin, Chills, Anemia ED Provider Note NAME: YANA JAMES AGE: 78 SEX: M : 1945 ARRIVES VIA: Walk-In INFORMANT: [Patient][family] ED PROVIDER(S): [Tutu Mcwilliams MD] CHIEF COMPLAINT: Illness HISTORY OF PRESENT ILLNESS: The patient is a 78-year-old male with renal disease. He also has a history of COPD. The patient recently decided that he was never going to dialysis, this has been discussed at length with his sheet fed printer. The patient states that he is always cold at nighttime but today, he has been chilled all day. He cannot get warm. He had to use his nebulizer twice which is somewhat unusual. He noticed some increasing shortness of breath today although there has been no cough or congestion. No documented fever. He has no chest pain or abdominal pain. He does have a red spot to the distal left leg but this is chronic. The patient is making urine, no burning with urination. No recent sick contacts. The patient did notice some chest pain today as well. He has a history of previous ND. The patient is not worried about tick bites as he does not go outside. PMHx/PSHx/Social Hx: See Below PHYSICAL EXAM: GENERAL: Patient is in no acute distress. HEENT: No acute trauma, normocephalic atraumatic, mucous membranes moist, no nasal congestion. NECK: No stridor, no adenopathy, no meningismus, trachea is midline. LUNGS: There are some scattered crackles at both bases, no respiratory distress, no wheezing. HEART: 3/6 systolic murmur heard best at the right sternal border. ABDOMEN: Soft, nontender, no peritonitis. Umbilical hernia which is nontender. EXTREMITIES: No cyanosis, full range of motion of all the joints without pain or difficulty. Mild bilateral pedal edema. There is some erythema and skin flaking to the distal left lower extremity. There is some subtle warmth here. NEUROLOGIC: Oriented x 3, no acute motor or sensory deficits, no focal weakness. SKIN: No jaundice, no diaphoresis. Somewhat pale. DIFFERENTIAL DIAGNOSIS: Sepsis or bacteremia, UTI, cellulitis, renal or liver failure, viral illness, among others. EMERGENCY DEPARTMENT PROCEDURES: MEDICAL DECISION MAKING: There is no leukocytosis. The patient is anemic however, this is a chronic finding. There is a normal platelet count. There is evidence for acute kidney injury with a rise of the creatinine by about 1 point. No electrolyte abnormality in need of emergent correction. Lactic acid level is not elevated making severe sepsis less likely. There is no concerning liver enzyme elevation. Procalcitonin level is not elevated making a serious bacterial infection less likely. ECG shows a normal sinus rhythm with a right bundle branch block. There are some inverted T waves which are more pronounced than previous ECGs. Cardiac enzyme testing x 1 is slightly elevated. This troponin elevation could be secondary to cardiac injury or just mismatch. Urinalysis shows protein, no obvious infection. Respiratory bio fire was negative. Chest film shows congestion of both bases but this appears similar to previous films. On exam, the patient was nontoxic in appearance. There was an area of potential early cellulitis to the left lower extremity although, the patient states this is a chronic wound/erythematous area. Given the acute kidney injury, given the elevated troponin, given his chills, I am concerned for bacteremia as well as cardiac injury and even fluid overload. The patient was initially ordered for 1 L of IV saline however, when his chest x-ray returned, this was stopped-he received only 400 cc in total. He received IV cefepime as antibiotic coverage. Given the circumstances, the patient is in need of a hospital stay, observation, further workup. I did speak with the patient and case management, the on-call hospitalist was consulted. Prior/Outside records/notes reviewed: None ECG per my interpretation: Indication was chest pain and weakness. The ECG shows a normal sinus rhythm with a rate of 74. There is a right bundle branch block. There is some LVH present. There are inverted T waves in the anterior and lateral leads. No PVCs. The QTc is 506. Compared to an ECG from 22 July 2023, the anterior lateral T wave changes are much more pronounced. Continuous Cardiac Monitoring per my interpretation: An order was placed for continuous cardiac monitoring. The monitor shows a rate of 71 with normal sinus rhythm. Imaging/x-ray results per my interpretation: Chest x-ray shows congestion/atelectasis at both bases. This appears similar to previous films. Chronic Medical/Social conditions affecting care: Advanced age, chronic renal failure. Care/Management discussed with: Case management, the on-call hospitalist. 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 HLD (hyperlipidemia) Hypertension T2DM (type 2 diabetes mellitus) Sleep apnea ESRD (end stage renal disease) CHF (congestive heart failure) Social History Smoking Status: Unknown if ever smoked Hx Alcohol Use: No Hx Substance Use: No Preferred Language: [place] Communication Ability: Effective Tonal Regulator Required: No Beliefs That Will Affect Care: None Current Living Situation: Spouse Feels Safe at Home: Yes Assistive Devices: BiPap, Cane, Special Shoe and Walker Allergies Allergies Allergy/AdvReac Type Severity Reaction Status Date / Time niacin Allergy Intermediate RASH/DIARRH Verified 10/19/23 19:51 EA tramadol Allergy Intermediate Rash Verified 10/19/23 19:51 citalopram AdvReac Intermediate FEVER/FLU-LIKE Verified 10/19/23 19:51 SYMPTOMS diltiazem AdvReac Intermediate FEVER/FLU-LIKE Verified 10/19/23 19:51 SYMPTOMS gabapentin AdvReac Intermediate Vomiting Verified 10/19/23 19:51 Home Meds Home Medications Medication Instructions Recorded Confirmed aspirin 81 mg tablet,delayed 81 mg PO PM ##0 04/16/08 10/19/23 release furosemide 40 mg tablet 80 mg PO BID ##0 04/16/08 10/19/23 multivitamin 1 tab PO QAM ##0 04/16/08 10/19/23 atorvastatin 40 mg tablet 40 mg PO PM ##0 01/28/09 10/19/23 Insulin Human Regular (Insulin 07/11/23 07/11/23 Regular Pump) Pump allopurinol 100 mg tablet 100 mg PO BID 07/11/23 10/19/23 cyanocobalamin (vitamin B-12) 500 500 mcg PO PM 07/11/23 10/19/23 mcg tablet hydralazine 50 mg tablet See Rx Instructions .Route .COMPLEX 07/11/23 10/19/23 terazosin 5 mg capsule 5 mg PO QAM 07/11/23 10/19/23 albuterol sulfate 90 mcg/actuation 1 - 2 puff inhalation DIRECTED 10/19/23 10/19/23 aerosol inhaler PRN Shortness Of Breath Or Wheezing insulin aspart U-100 100 unit/mL 1 sliding scale dose continuous 10/19/23 10/19/23 subcutaneous solution (Novolog subcutaneous infusion CONTINOUS U-100 Insulin aspart) valsartan 160 mg tablet 80 mg PO QPM 10/19/23 10/19/23 Previous Rx's Medication Instructions Recorded clopidogrel 75 mg tablet 75 mg PO QAM #30 tabs 07/15/23 isosorbide mononitrate 30 mg 30 mg PO QAM #30 tabs 07/15/23 tablet,extended release 24 hr metoprolol succinate 50 mg 100 mg (2 x 50 mg) PO QAM #60 tabs 07/15/23 tablet,extended release 24 hr ipratropium 0.5 mg-albuterol 3 mg 3 ml inhalation Q6H PRN cough, 07/22/23 (2.5 mg base)/3 mL nebulization wheezing, or shortness of breath soln #90 mL nebulizer and compressor #1 ea 07/22/23 Results & Data (ED) Vital Signs Vital Signs - 24 hr 10/19/23 17:40 10/19/23 18:26 10/19/23 18:27 Temperature 36.9 C Temperature Source Temporal Artery Scan Pulse Rate 71 Pulse Rate [Apical] 68 Pulse Rhythm [Apical] Pulse Strength [Apical] Respiratory Rate 16 14 Respiratory Effort / Characteristics Non-Labored Spontaneous Respiratory Depth Normal Respiratory Pattern Regular Blood Pressure 164/70 H Blood Pressure [Right Arm] 126/74 Blood Pressure Mean 101 Blood Pressure Mean [Right Arm] 91 Blood Pressure Position [Right Arm] Pulse Oximetry 95 93 Oxygen Delivery Method Room Air Room Air Room Air Sepsis Recent Fever Within 48 Hours No Sepsis New/Unexplained Change in Mental Status N/A Sepsis Action Taken by Nursing No Action Required 10/19/23 18:28 10/19/23 19:00 10/19/23 19:30 Temperature Temperature Source Pulse Rate 68 Pulse Rate [Apical] 66 71 Pulse Rhythm [Apical] Regular Regular Pulse Strength [Apical] Normal Normal Respiratory Rate 18 18 Respiratory Effort / Characteristics Non-Labored Spontaneous Non-Labored Spontaneous Respiratory Depth Normal Normal Respiratory Pattern Regular Regular Blood Pressure Blood Pressure [Right Arm] 123/67 108/60 Blood Pressure Mean Blood Pressure Mean [Right Arm] 85 76 Blood Pressure Position [Right Arm] Lying Lying Pulse Oximetry 96 94 Oxygen Delivery Method Room Air Room Air Sepsis Recent Fever Within 48 Hours Sepsis New/Unexplained Change in Mental Status Sepsis Action Taken by Prison Medications Current Medication List: was personally reviewed by me Laboratory Data Attestation: I reviewed the patient's lab results. 10/19/23 18:10 10/19/23 18:10 Lab Results 10/19/23 10/19/23 10/19/23 Range/Units 18:10 18:28 19:46 WBC 6.87 (4.8-10.8) K/ul RBC 3.05 L (4.70-6.10) M/uL Hgb 9.2 L (14.0-18.0) g/dl Hct 29.4 L (42.0-52.0) % MCV 96.4 (80.0-100.0) fL MCH 30.2 (25.0-34.0) pg MCHC 31.3 L (32.0-36.0) g/dL RDW Std Deviation 54.5 H (36.4-46.3) fL RDW Coeff of Sera 15.4 H (11.5-14.5) % Plt Count 148 (130-400) K/uL MPV 11.5 (9.4-12.4) fL Immature Gran % (Auto) 0.3 % Neut % (Auto) 77.4 % Lymph % (Auto) 10.0 % Mcdonough % (Auto) 10.3 % Eos % (Auto) 1.6 % Baso % (Auto) 0.4 % Neut # (Auto) 5.31 (1.40-6.50) K/uL Lymph # (Auto) 0.69 L (1.20-3.40) K/uL Mcdonough # (Auto) 0.71 H (0.11-0.59) K/uL Eos # (Auto) 0.11 (0.00-0.50) K/uL Baso # (Auto) 0.03 (0.00-0.20) K/uL Immature Gran # (Auto) 0.02 (0.01-0.20) K/uL Sodium 141 (136-145) mmol/L Potassium 4.0 (3.5-5.1) mmol/L Chloride 104 (98-107) mmol/L Carbon Dioxide 27 (21-32) mmol/L Anion Gap 10 (3-11) BUN 55 H (6-23) mg/dl Creatinine 5.38 H* (0.6-1.4) mg/dl Est Cr Clr Drug Dosing 15.4 ml/min Est GFR ( Amer) 10.8 ml/min Est GFR (Non-Af Amer) 9.3 ml/min BUN/Creatinine Ratio 10.2 (10-20) Glucose 124 H (70-99(Fasting)) mg/dl Lactate 1.2 (0.4-2.0) mmol/L Calcium 9.0 (8.6-10.3) mg/dl Magnesium 1.9 (1.7-2.4) mg/dl Total Bilirubin 0.4 (0.2-1.0) mg/dl Direct Bilirubin 0.1 (0-0.2) mg/dl AST 16 (13-39) U/L ALT 12 (7-52) U/L Alkaline Phosphatase 59 (34-104) U/L Troponin I High Sens 221.5 H* (0-20) pg/ml Total Protein 6.6 (6.0-8.3) gm/dl Albumin 3.6 (3.4-5.0) gm/dl Procalcitonin 0.05 (0-0.5) ng/ml Urine Color Yellow Urine Appearance Clear (Clear) Urine pH 7.0 (4.5-7.5) Ur Specific [place] 1.016 (1.000-1.030) Urine Protein 3+ H (Negative) Urine Glucose (UA) Trace H (Negative) Urine Ketones Negative (Negative) Urine Blood Negative (Negative) Urine Nitrite Negative (Negative) Urine Bilirubin Negative (Negative) Urine Urobilinogen Negative (Negative) Ur Leukocyte Esterase Negative (Negative) Urine WBC (Auto) 0-5 (0-5) /hpf Urine RBC (Auto) 0-2 (0-2) /hpf U Hyaline Cast (Auto) 0-2 (0-2) /lpf U Epithel Cells (Auto) 0-2 (0-2) /hpf Urine Bacteria (Auto) None Seen (None Seen) Adenovirus (PCR) Not Detected (NotDetected) B. pertussis DNA (PCR) Not Detected (NotDetected) B.parapertussis DNA PCR Not Detected (NotDetected) C. pneumoniae DNA (PCR) Not Detected (NotDetected) Coronavirus OC43 (PCR) Not Detected (NotDetected) Coronavirus HKU1 (PCR) Not Detected (NotDetected) Coronavirus 229E (PCR) Not Detected (NotDetected) SARS-CoV-2 (PCR) Not Detected (NotDetected) Coronavirus NL63 (PCR) Not Detected (NotDetected) Human Metapneumovir PCR Not Detected (NotDetected) Influenza Type A (PCR) Not Detected (NotDetected) Influenza Type B (PCR) Not Detected (NotDetected) M. pneumoniae (PCR) Not Detected (NotDetected) Parainfluenza 1 (PCR) Not Detected (NotDetected) Parainfluenza 2 (PCR) Not Detected (NotDetected) Parainfluenza 3 (PCR) Not Detected (NotDetected) Parainfluenza 4 (PCR) Not Detected (NotDetected) RSV (PCR) Not Detected (NotDetected) Entero/Rhino (PCR) Not Detected (NotDetected) Administered Medications Discontinued Medications Sodium Chloride (Nss) 1,000 mls @ 999 mls/hr IV .Q1H1M PADMINI Stop: 10/19/23 18:45 Last Infusion: 10/19/23 19:48 Dose: Infused Documented By: Admin: 10/19/23 18:35 Dose: 999 mls/hr Documented By: KYLEE Cefepime HCl (Maxipime) 2,000 mg in 20 mls @ 5 mls/min IV NOW STA; Protocol Stop: 10/19/23 17:45 Last Admin: 10/19/23 18:36 Dose: 5 mls/min Documented By: KYLEE Imaging Data Radiologist's Impression: Chest X-Ray 07/21/24 17:42 XR chest 1V portable HISTORY: Sepsis COMPARISON: Chest 07/22/2023. FINDINGS: No pneumothorax. The cardiac silhouette remains enlarged. Small bilateral pleural effusions and mild interstitial pulmonary edema. Patchy bibasilar densities persist. No acute fractures. Calcifications within the aortic knob. IMPRESSION: 1. No change in the cardiomegaly, small bilateral pleural effusions, and mild pulmonary edema. 2. Patchy bibasilar densities also persist. This could represent atelectasis or a pneumonia. ACT 112: Negative or not required by law. Electronically signed by: Tyrone Tapia M.D. 10/19/2023 7:41 PM Discharge Plan Visit Data Chief Complaint: Illness Stated Complaint: chills, sob, chest discomfort, kidney cancer ED Provider: Tutu Mcwilliams Discharge Problem: ZAC (acute kidney injury), Elevated troponin, Chills, Anemia Patient Disposition: Admitted As Inpatient Condition: Fair Forms Stand Alone Forms: [facility] [employer] Prescriptions Prescriptions: No Action multivitamin Tablet 1 tab PO QAM Qty: 0 furosemide 40 mg Tablet 80 mg PO BID Qty: 0 Rx Instructions: TAKES QAM & AFTERNOON aspirin 81 mg Tablet,Delayed Release (Dr/Ec) 81 mg PO PM Qty: 0 atorvastatin 40 mg Tablet 40 mg PO PM Qty: 0 ipratropium-albuterol 0.5 mg-3 mg(2.5 mg base)/3 mL solution for nebulization 3 ml inhalation Q6H PRN (Reason: cough, wheezing, or shortness of breath) Qty: 90 0RF (DME) nebulizer and compressor Device See Rx Instructions .ROUTE .MEDSUPPLY Qty: 1 0RF Rx Instructions: As directed valsartan 160 mg Tablet 80 mg PO QPM insulin aspart U-100 [Novolog U-100 Insulin aspart] 100 unit/mL Solution 1 sliding scale dose continuous subcutaneous infusion CONTINOUS albuterol sulfate 90 mcg/actuation Hfa Aerosol Inhaler 1 - 2 puff INHALATION DIRECTED PRN (Reason: Shortness Of Breath Or Wheezing) terazosin 5 mg capsule 5 mg PO QAM allopurinol 100 mg tablet 100 mg PO BID cyanocobalamin (vitamin B-12) 500 mcg Tablet 500 mcg PO PM hydralazine 50 mg Tablet See Rx Instructions .ROUTE .COMPLEX Rx Instructions: TAKES 100 MG QAM, THEN 50 MG QPM (DME) Insulin Human Regular (Insulin Regular Pump) Pump clopidogrel 75 mg Tablet 75 mg PO QAM Qty: 30 0RF metoprolol succinate 50 mg Tablet Extended Release 24 Hr 100 mg PO QAM Qty: 60 0RF isosorbide mononitrate 30 mg Tablet Extended Release 24 Hr 30 mg PO QAM Qty: 30 0RF Referrals Referrals: [facility],Hospital [Primary Care Provider] - Discharge Problem: Anemia Qualifiers: Anemia type: unspecified type Qualified Code(s): D64.9 - Anemia, unspecified
[2023-10-19] MEDS: SODIUM CHLORIDE 0.9% 1,000 ML IV SCH (18:35)
[2023-10-19] MEDS: CEFEPIME 2,000 MG/20 ML VIAL IV STA (18:36)
[2023-10-19 19:02] LABS: Basophils # (auto) 0.03 K/uL (0.00-0.20); Basophils % (auto) 0.4 %; Eosinophils # (auto) 0.11 K/uL (0.00-0.50); Eosinophils % (auto) 1.6 %; Hematocrit (blood only) 29.4 % (42.0-52.0); Hemoglobin 9.2 g/dl (14.0-18.0); Immature Granulocytes # (auto) 0.02 K/uL (0.01-0.20); Immature Granulocytes % (auto) 0.3 %; Lymphocytes # (auto) 0.69 K/uL (1.20-3.40); Mean Corpuscular Hemoglobin 30.2 pg (25.0-34.0); Mean Corpuscular Hgb Conc 31.3 g/dL (32.0-36.0); Mean Corpuscular Volume 96.4 fL (80.0-100.0); Mean Platelet Volume 11.5 fL (9.4-12.4); Monocytes # (auto) 0.71 K/uL (0.11-0.59); Monocytes % (auto) 10.3 %; Neutrophils # (auto) 5.31 K/uL (1.40-6.50); Neutrophils % (auto) 77.4 %; Platelet Count 148 K/uL (130-400); RDW Coefficient of Variation 15.4 % (11.5-14.5); RDW Standard Deviation 54.5 fL (36.4-46.3); Red Blood Count 3.05 M/uL (4.70-6.10); White Blood Count 6.87 K/ul (4.8-10.8)
[2023-10-19 19:11] LABS: Albumin Level 3.6 gm/dl (3.4-5.0); BUN Creatinine Ratio 10.2 (10-20); Bilirubin Direct 0.1 mg/dl (0-0.2); Bilirubin,Total 0.4 mg/dl (0.2-1.0); Creatinine Clr Calc Pharmacy 15.4 ml/min; Est GFR (African American) 10.8 ml/min; Est GFR (Non-African American) 9.3 ml/min; Magnesium 1.9 mg/dl (1.7-2.4); Total Protein 6.6 gm/dl (6.0-8.3)
[2023-10-19 19:19] LABS: Troponin I High Sensitivity 221.5 pg/ml (0-20)
[2023-10-19 19:35] LABS: Adenovirus PCR Not Detected (NotDetected); Bordetella parapertussis PCR Not Detected (NotDetected); Bordetella pertussis PCR Not Detected (NotDetected); Chlamydia pneumoniae PCR Not Detected (NotDetected); Coronavirus 229E PCR Not Detected (NotDetected); Coronavirus CoV-2 (COVID19)PCR Not Detected (NotDetected); Coronavirus HKU1 PCR Not Detected (NotDetected); Coronavirus NL63 PCR Not Detected (NotDetected); Coronavirus OC43PCR Not Detected (NotDetected); Human Metapneumovirus PCR Not Detected (NotDetected); Influenza A PCR Not Detected (NotDetected); Influenza B PCR Not Detected (NotDetected); Mycoplasma pneumoniae PCR Not Detected (NotDetected); Parainfluenza Virus 1 PCR Not Detected (NotDetected); Parainfluenza Virus 2 PCR Not Detected (NotDetected); Parainfluenza Virus 3 PCR Not Detected (NotDetected); Parainfluenza Virus 4 PCR Not Detected (NotDetected); Respiratory Syncytial VirusPCR Not Detected (NotDetected); Rhinovirus/Enterovirus PCR Not Detected (NotDetected)
--- NOTE | 2023-10-19 19:42 | XRay Report ---
XR chest 1V portable HISTORY: Sepsis COMPARISON: Chest 07/22/2023. FINDINGS: No pneumothorax. The cardiac silhouette remains enlarged. Small bilateral pleural effusions and mild interstitial pulmonary edema. Patchy bibasilar densities persist. No acute fractures. Calci fications within the aortic knob. IMPRESSION: 1. No change in the cardiomegaly, small bilateral pleural effusions, and mild pulmonary edema. 2. Patchy bibasilar densities also persist. This could represent atelectasis or a pneumonia. ACT 112: Negative or not required by law. Electronically signed by: Tyrone Tapia M.D. 10/19/2023 7:41 PM
[2023-10-19 20:04] LABS: Appearance Urine Clear (Clear); Bacteria Urine Automated None Seen (None Seen); Bilirubin Urine Negative (Negative); Blood Urine Negative (Negative); Cast Urine Automated 0-2 /lpf (0-2); Color Urine Yellow; Epithelial Cell Urine Auto 0-2 /hpf (0-2); Glucose Urine UA Trace (Negative); Ketones Urine Negative (Negative); Leukocyte Esterase Urine Negative (Negative); Nitrite Urine Negative (Negative); Protein Urine 3+ (Negative); RBC Urine Automated 0-2 /hpf (0-2); Specific Gravity Urine 1.016 (1.000-1.030); Urobilinogen Urine Negative (Negative); WBC Urine Automated 0-5 /hpf (0-5)
--- NOTE | 2023-10-19 22:07 | History & Physical Report ---
Date of Service October 19, 2023 Assessment & Plan (1) Pneumonia: (2) Acute hypoxic respiratory failure: (3) COPD exacerbation: (4) Sleep apnea: (5) 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: (6) Hypertension: (7) Anemia: (8) HLD (hyperlipidemia): (9) T2DM (type 2 diabetes mellitus): Plan Pneumonia/COPD exacerbation/acute respiratory failure with hypoxia- MRSA swab Chest x-ray with significant right lower lobe pneumonia Cefepime 2 g IV every 12 hours Zyvox 600 mg IV every 12 hours Azithromycin 500mg IV every 12 hours Duonebs every 4 hours while awake and every 2 hours when necessary. Guaifenesin extended release 1200 mg p.o. twice daily Sputum Gram stain and culture CKD stage V not on dialysis- Patient following with nephrology at the [place], having been seen there about 1 week ago Creatinine 5.38, with base 5.03, and will follow serially He did receive normal saline 1 L bolus from the ED, with no further fluids to be given Hypertension/CAD/CHF- Blood pressure initially low in the ED at 104/80 Hold this evening's hydralazine and valsartan doses, and will likely be able to restart in the a.m. Continue aspirin, clopidogrel, hydralazine, isosorbide mononitrate, metoprolol succinate and valsartan Diabetes mellitus- Patient is already stopped his insulin pump Placed on Accu-Cheks with NovoLog SSI HELEN- Continue BiPAP at bedtime, with patient's usual settings of 03/04 History of Present Illness Chief Complaint: The patient presents to the emergency department with primary complaint of chills for the past few days, and some worsening of his chronic cough, with less improvement with use of nebulizer than usual Primary Care Provider: [facility] The patient is a 78-year-old male with a past medical history including COPD, pneumonia, anemia, hyperlipidemia, NSTEMI, CHF, ESRD not on dialysis, diabetes mellitus type 2, sleep apnea requiring BiPAP 03/04, and morbid obesity. The kevin ent had been to see his insurance sales executive about 1 week ago at the [place] and shortly thereafter had had development of a more mucousy cough, and less reliable improvement in breathing and cough after using his nebulizer. Allergies Allergy/AdvReac Type Severity Reaction Status Date / Time niacin Allergy Intermediate RASH/DIARRH Verified 10/19/23 19:51 EA tramadol Allergy Intermediate Rash Verified 10/19/23 19:51 citalopram AdvReac Intermediate FEVER/FLU-LIKE Verified 10/19/23 19:51 SYMPTOMS diltiazem AdvReac Intermediate FEVER/FLU-LIKE Verified 10/19/23 19:51 SYMPTOMS gabapentin AdvReac Intermediate Vomiting Verified 10/19/23 19:51 Home Medications Medication Instructions Recorded Confirmed Type aspirin 81 mg tablet,delayed 81 mg PO PM ##0 04/16/08 10/19/23 History release furosemide 40 mg tablet 80 mg PO BID ##0 04/16/08 10/19/23 History multivitamin 1 tab PO QAM ##0 04/16/08 10/19/23 History atorvastatin 40 mg tablet 40 mg PO PM ##0 01/28/09 10/19/23 History Insulin Human Regular (Insulin 07/11/23 07/11/23 History Regular Pump) Pump allopurinol 100 mg tablet 100 mg PO BID 07/11/23 10/19/23 History cyanocobalamin (vitamin B-12) 500 500 mcg PO PM 07/11/23 10/19/23 History mcg tablet hydralazine 50 mg tablet See Rx Instructions .Route .COMPLEX 07/11/23 10/19/23 History terazosin 5 mg capsule 5 mg PO QAM 07/11/23 10/19/23 History clopidogrel 75 mg tablet 75 mg PO QAM #30 tabs 07/15/23 10/19/23 Rx isosorbide mononitrate 30 mg 30 mg PO QAM #30 tabs 07/15/23 10/19/23 Rx tablet,extended release 24 hr metoprolol succinate 50 mg 100 mg (2 x 50 mg) PO QAM #60 tabs 07/15/23 10/19/23 Rx tablet,extended release 24 hr ipratropium 0.5 mg-albuterol 3 mg 3 ml inhalation Q6H PRN cough, 07/22/23 10/19/23 Rx (2.5 mg base)/3 mL nebulization wheezing, or shortness of breath soln #90 mL nebulizer and compressor #1 ea 07/22/23 Rx albuterol sulfate 90 mcg/actuation 1 - 2 puff inhalation DIRECTED 10/19/23 10/19/23 History aerosol inhaler PRN Shortness Of Breath Or Wheezing insulin aspart U-100 100 unit/mL 1 sliding scale dose continuous 10/19/23 10/19/23 History subcutaneous solution (Novolog subcutaneous infusion CONTINOUS U-100 Insulin aspart) valsartan 160 mg tablet 80 mg PO QPM 10/19/23 10/19/23 History Past Med/Surg History Problem List (Updated 10/20/23 @ 05:27 by Hong Gill MD) COPD exacerbation 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 HLD (hyperlipidemia) T2DM (type 2 diabetes mellitus) Acute hypoxic respiratory failure Hypertension Sleep apnea Anemia (Acute) Chills (Acute) Elevated troponin (Acute) ZAC (acute kidney injury) (Acute) Medical History (Updated 10/20/23 @ 05:27 by Hong Gill MD) ESRD (end stage renal disease) Acute on chronic heart failure with preserved ejection fraction (HFpEF) Shortness of breath NSTEMI (non-ST elevated myocardial infarction) Chest pain Anemia due to chronic kidney disease CHF (congestive heart failure) Social History Smoking Status: Never smoker Do You Dip or Chew Tobacco: No; Hx Alcohol Use: No Hx Substance Use: No Preferred Language: American Communication Ability: Effective Adult Day Care Worker Required: No Beliefs That Will Affect Care: None Current Living Situation: Spouse Feels Safe at Home: Yes Assistive Devices: BiPap, Denture - Upper, Hearing Aid - Bilateral, Walker and Wheelchair Review of Systems Review of Systems: The patient denies chest pain, palpitations, lower extremity swelling, sore throat, fevers, chills, sweats, nausea, vomiting, diarrhea , constipation, abdominal pain, pelvic pain, blood in urine or stool, dysuria, urinary frequency or urgency, lightheadedness, dizziness, headache, memory loss, loss of consciousness, rash, abnormal bruising or bleeding, imbalance, focal or generalized weakness, numbness or tingling in arms or legs, generalized arthralgias or myalgias, back or neck pain, or night sweats. The review of systems is otherwise negative other than for that already noted above, and at least 10 systems have been reviewed. Physical Exam Physical Exam: The patient is awake, alert and oriented 3, well developed and well nourished, normocephalic and atraumatic, lying in bed and in no acute distress. HEENT--PERRL, EOMI, mucous membranes and oropharynx dry. Neck--supple. No JVD. No bruits. Thyroid normal, trachea midline, no adenopathy. Heart--normal S1 and S2. No murmurs, rubs or gallops. Lungs--coarse breath sounds right base greater than left. No respiratory distress, no accessory muscle use. Abdomen--normal bowel sounds and soft. Nontender. Nondistended. Morbidly obese Extremities--1+ bilateral pretibial pitting edema. Left lower extremity anterior montoya with mild erythema. Dermatologic--normal except for left lower extremity Neurologic--cranial nerves II through XII grossly intact. Rheumatologic--normal range of motion. Psychiatric--normal affect. Results & Data Results & Data Vital Signs (Past 12 Hours) Vital Signs Temp Pulse Pulse Resp BP BP Pulse Ox 10/19/23 19:30 71 18 108/60 94 10/19/23 19:00 66 18 123/67 96 10/19/23 18:28 68 10/19/23 18:27 68 14 126/74 93 10/19/23 18:26 10/19/23 17:40 36.9 C 71 16 164/70 H 95 O2 Del Method 10/19/23 19:30 Room Air 10/19/23 19:00 Room Air 10/19/23 18:28 10/19/23 18:27 Room Air 10/19/23 18:26 Room Air 10/19/23 17:40 Room Air Laboratory Results Laboratory Results WBC 6.87 K/ul (4.8-10.8) 10/19/23 18:10 RBC 3.05 M/uL (4.70-6.10) L 10/19/23 18:10 Hgb 9.2 g/dl (14.0-18.0) L 10/19/23 18:10 Hct 29.4 % (42.0-52.0) L 10/19/23 18:10 MCV 96.4 fL (80.0-100.0) 10/19/23 18:10 MCH 30.2 pg (25.0-34.0) 10/19/23 18:10 MCHC 31.3 g/dL (32.0-36.0) L 10/19/23 18:10 RDW Std Deviation 54.5 fL (36.4-46.3) H 10/19/23 18:10 RDW Coeff of Sera 15.4 % (11.5-14.5) H 10/19/23 18:10 Plt Count 148 K/uL (130-400) 10/19/23 18:10 MPV 11.5 fL (9.4-12.4) 10/19/23 18:10 Immature Gran % (Auto) 0.3 % 10/19/23 18:10 Neut % (Auto) 77.4 % 10/19/23 18:10 Lymph % (Auto) 10.0 % 10/19/23 18:10 [place] % (Auto) 10.3 % 10/19/23 18:10 Eos % (Auto) 1.6 % 10/19/23 18:10 Baso % (Auto) 0.4 % 10/19/23 18:10 Neut # (Auto) 5.31 K/uL (1.40-6.50) 10/19/23 18:10 Lymph # (Auto) 0.69 K/uL (1.20-3.40) L 10/19/23 18:10 [place] # (Auto) 0.71 K/uL (0.11-0.59) H 10/19/23 18:10 Eos # (Auto) 0.11 K/uL (0.00-0.50) 10/19/23 18:10 Baso # (Auto) 0.03 K/uL (0.00-0.20) 10/19/23 18:10 Immature Gran # (Auto) 0.02 K/uL (0.01-0.20) 10/19/23 18:10 Sodium 141 mmol/L (136-145) 10/19/23 18:10 Potassium 4.0 mmol/L (3.5-5.1) 10/19/23 18:10 Chloride 104 mmol/L (98-107) 10/19/23 18:10 Carbon Dioxide 27 mmol/L (21-32) 10/19/23 18:10 Anion Gap 10 (3-11) 10/19/23 18:10 BUN 55 mg/dl (6-23) H 10/19/23 18:10 Creatinine 5.38 mg/dl (0.6-1.4) H* 10/19/23 18:10 Est Cr Clr Drug Dosing 15.4 ml/min 10/19/23 18:10 Est GFR ( Amer) 10.8 ml/min 10/19/23 18:10 Est GFR (Non-Af Amer) 9.3 ml/min 10/19/23 18:10 BUN/Creatinine Ratio 10.2 (10-20) 10/19/23 18:10 Glucose 124 mg/dl (70-99(Fasting)) H 10/19/23 18:10 POC Glucose 223 mg/dl (70-99) H 10/19/23 23:41 Lactate 1.2 mmol/L (0.4-2.0) 10/19/23 18:10 Calcium 9.0 mg/dl (8.6-10.3) 10/19/23 18:10 Magnesium 1.9 mg/dl (1.7-2.4) 10/19/23 18:10 Total Bilirubin 0.4 mg/dl (0.2-1.0) 10/19/23 18:10 Direct Bilirubin 0.1 mg/dl (0-0.2) 10/19/23 18:10 AST 16 U/L (13-39) 10/19/23 18:10 ALT 12 U/L (7-52) 10/19/23 18:10 Alkaline Phosphatase 59 U/L (34-104) 10/19/23 18:10 Troponin I High Sens 255.8 pg/ml (0-20) H* 10/19/23 20:39 Total Protein 6.6 gm/dl (6.0-8.3) 10/19/23 18:10 Albumin 3.6 gm/dl (3.4-5.0) 10/19/23 18:10 Procalcitonin 0.05 ng/ml (0-0.5) 10/19/23 18:10 Urine Color Yellow 10/19/23 19:46 Urine Appearance Clear (Clear) 10/19/23 19:46 Urine pH 7.0 (4.5-7.5) 10/19/23 19:46 Ur Specific [place] 1.016 (1.000-1.030) 10/19/23 19:46 Urine Protein 3+ (Negative) H 10/19/23 19:46 Urine Glucose (UA) Trace (Negative) H 10/19/23 19:46 Urine Ketones Negative (Negative) 10/19/23 19:46 Urine Blood Negative (Negative) 10/19/23 19:46 Urine Nitrite Negative (Negative) 10/19/23 19:46 Urine Bilirubin Negative (Negative) 10/19/23 19:46 Urine Urobilinogen Negative (Negative) 10/19/23 19:46 Ur Leukocyte Esterase Negative (Negative) 10/19/23 19:46 Urine WBC (Auto) 0-5 /hpf (0-5) 10/19/23 19:46 Urine RBC (Auto) 0-2 /hpf (0-2) 10/19/23 19:46 U Hyaline Cast (Auto) 0-2 /lpf (0-2) 10/19/23 19:46 U Epithel Cells (Auto) 0-2 /hpf (0-2) 10/19/23 19:46 Urine Bacteria (Auto) None Seen (None Seen) 10/19/23 19:46 Nasal Screen MRSA (PCR) Negative (Negative) 10/19/23 23:30 Adenovirus (PCR) Not Detected (NotDetected) 10/19/23 18:28 B. pertussis DNA (PCR) Not Detected (NotDetected) 10/19/23 18:28 B.parapertussis DNA PCR Not Detected (NotDetected) 10/19/23 18:28 C. pneumoniae DNA (PCR) Not Detected (NotDetected) 10/19/23 18:28 Coronavirus OC43 (PCR) Not Detected (NotDetected) 10/19/23 18:28 Coronavirus HKU1 (PCR) Not Detected (NotDetected) 10/19/23 18:28 Coronavirus 229E (PCR) Not Detected (NotDetected) 10/19/23 18:28 SARS-CoV-2 (PCR) Not Detected (NotDetected) 10/19/23 18:28 Coronavirus NL63 (PCR) Not Detected (NotDetected) 10/19/23 18:28 Human Metapneumovir PCR Not Detected (NotDetected) 10/19/23 18:28 Influenza Type A (PCR) Not Detected (NotDetected) 10/19/23 18:28 Influenza Type B (PCR) Not Detected (NotDetected) 10/19/23 18:28 M. pneumoniae (PCR) Not Detected (NotDetected) 10/19/23 18:28 Parainfluenza 1 (PCR) Not Detected (NotDetected) 10/19/23 18:28 Parainfluenza 2 (PCR) Not Detected (NotDetected) 10/19/23 18:28 Parainfluenza 3 (PCR) Not Detected (NotDetected) 10/19/23 18:28 Parainfluenza 4 (PCR) Not Detected (NotDetected) 10/19/23 18:28 RSV (PCR) Not Detected (NotDetected) 10/19/23 18:28 Entero/Rhino (PCR) Not Detected (NotDetected) 10/19/23 18:28 Impressions Chest X-Ray 10/19/23 17:42 XR chest 1V portable HISTORY: Sepsis COMPARISON: Chest 07/22/2023. FINDINGS: No pneumothorax. The cardiac silhouette remains enlarged. Small bilateral pleural effusions and mild interstitial pulmonary edema. Patchy bibasilar densities persist. No acute fractures. Calcifications within the aortic knob. IMPRESSION: 1. No change in the cardiomegaly, small bilateral pleural effusions, and mild pulmonary edema. 2. Patchy bibasilar densities also persist. This could represent atelectasis or a pneumonia. ACT 112: Negative or not required by law. Electronically signed by: Tyrone Tapia M.D. 10/19/2023 7:41 PM Code Status & VTE Plan Code Status Full code VTE Prophylaxis Plan VTE Prophylaxis will be ordered: Yes PG Care Time/CCT Total # of Minutes Spent Total Time Spent with Patient: Total time spent is greater than 50% in coordination of care (as documented) at patient's floor/unit and/or counseling patient: Coding Level of Care Code 85718 INT INP/OBS CARE 3/75MIN Diagnoses Pneumonia J18.9 Laterality: bilateral Lung location: lower lobe of lung Pneumonia type: due to unspecified organism Acute hypoxic respiratory failure J96.01 COPD exacerbation J44.1 Sleep apnea G47.30 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 N18.5 Hypertension I10 Anemia D64.9 Anemia type: unspecified type HLD (hyperlipidemia) E78.5 T2DM (type 2 diabetes mellitus) E11.9 (1) Pneumonia Laterality: bilateral Lung location: lower lobe of lung Pneumonia type: due to unspecified organism Qualified Code(s): J18.9 - Pneumonia, unspecified organism (7) Anemia Anemia type: unspecified type Qualified Code(s): D64.9 - Anemia, unspecified
[2023-10-19] MEDS: CYANOCOBALAMIN (B-12) 500 MCG TABLET PO STA (22:12)
[2023-10-19] MEDS: allopurinoL 100 MG TAB PO STA (22:12)
[2023-10-19] MEDS: ATORVASTATIN 40 MG TAB PO STA (22:12)
[2023-10-19] MEDS: ASPIRIN 81 MG ECTAB PO STA (22:12)
[2023-10-19] MEDS: AZITHROMYCIN 500 MG in DEXTROSE 5% 250 ML IV STA (22:14)
[2023-10-19] MEDS: LINEZOLID 600 MG/300 ML BAG IV STA (22:14)
[2023-10-19] MEDS ORDERED: DEXTROSE 50% 50 ML SYRINGE IV PRN (23:20)
[2023-10-19] MEDS ORDERED: CARBOHYDRATES FOR HYPOGLYCEMIA PO PRN (23:20)
[2023-10-19] MEDS ORDERED: ACETAMINOPHEN 325 MG TAB PO PRN (23:20)
[2023-10-19] MEDS ORDERED: GLUCAGON FOR INJ 1 MG VIAL SQ PRN (23:20)
[2023-10-19] MEDS ORDERED: GLUCOSE 10 TAB/TUBE PO PRN (23:20)
[2023-10-19] MEDS ORDERED: GLUCOSE 40% GEL 15 GM TUBE PO PRN (23:20)
[2023-10-20] MEDS: hydrALAZINE TAB 50 MG TAB PO SCH ×2 (00:04→08:46)
[2023-10-20] MEDS: INSULIN ASPART PER UNIT CHARGE SC STA (00:46)
[2023-10-20] MEDS: CEFEPIME 1,000 MG in SYRINGE 0 ML IV SCH (05:30)
[2023-10-20 06:20] LABS: Basophils # (auto) 0.04 K/uL (0.00-0.20); Basophils % (auto) 0.6 %; Eosinophils % (auto) 2.8 %; Hematocrit (blood only) 27.6 % (42.0-52.0); Hemoglobin 8.6 g/dl (14.0-18.0); Immature Granulocytes # (auto) 0.03 K/uL (0.01-0.20); Immature Granulocytes % (auto) 0.4 %; Lymphocytes # (auto) 0.89 K/uL (1.20-3.40); Lymphocytes % (auto) 12.5 %; Mean Corpuscular Hemoglobin 29.3 pg (25.0-34.0); Mean Corpuscular Hgb Conc 31.2 g/dL (32.0-36.0); Mean Corpuscular Volume 93.9 fL (80.0-100.0); Mean Platelet Volume 11.2 fL (9.4-12.4); Monocytes # (auto) 0.79 K/uL (0.11-0.59); Monocytes % (auto) 11.1 %; Neutrophils # (auto) 5.17 K/uL (1.40-6.50); Neutrophils % (auto) 72.6 %; Platelet Count 152 K/uL (130-400); RDW Coefficient of Variation 15.3 % (11.5-14.5); RDW Standard Deviation 52.8 fL (36.4-46.3); Red Blood Count 2.94 M/uL (4.70-6.10); White Blood Count 7.12 K/ul (4.8-10.8)
[2023-10-20 06:52] LABS: Albumin Level 3.5 gm/dl (3.4-5.0); BUN Creatinine Ratio 10.4 (10-20); Calcium 8.7 mg/dl (8.6-10.3); Creatinine Clr Calc Pharmacy 14.8 ml/min; Est GFR (African American) 10.6 ml/min; Est GFR (Non-African American) 9.1 ml/min; Magnesium 1.9 mg/dl (1.7-2.4); Phosphorus 4.5 mg/dl (2.5-4.9)
[2023-10-20] MEDS: ALBUT/IPRATROP 3MG/0.5MG NEB 3 ML VIAL NEB SCH (07:11)
[2023-10-20 07:47] LABS: Estimated Average Glucose 146 mg/dl; Hemoglobin A1C 6.7 % (4.5-5.6)
[2023-10-20] MEDS ORDERED: CEFEPIME 2,000 MG in SYRINGE 0 ML IV SCH (08:00)
[2023-10-20] MEDS: CLOPIDOGREL BISULFATE 75 MG TAB PO SCH (08:44)
[2023-10-20] MEDS: FUROSEMIDE 80 MG TAB PO SCH (08:44)
[2023-10-20] MEDS: allopurinoL 100 MG TAB PO SCH (08:44)
[2023-10-20] MEDS: ISOSORBIDE MONO EXTENDED REL 30 MG TABCR PO SCH (08:44)
[2023-10-20] MEDS: TERAZOSIN HCL 5 MG CAP PO SCH (08:45)
[2023-10-20] MEDS: MULTIVITAMIN TAB PO SCH (08:45)
[2023-10-20] MEDS: METOPROLOL SUCC 50MG EXT REL TAB PO SCH (08:45)
[2023-10-20] MEDS: LINEZOLID 600 MG/300 ML BAG IV SCH (08:46)
[2023-10-20] MEDS: guaiFENesin 600 MG TABCR PO SCH (08:49)
[2023-10-20] MEDS: INSULIN ASPART PER UNIT CHARGE SC SCH (09:05)
[2023-10-20] MEDS: MAGNESIUM SULFATE / D5W 1 GM/100 ML BAG IV ONE (12:38)
[2023-10-20] MEDS: FUROSEMIDE 40 MG/4 ML VIAL IV ONE (14:23)
--- NOTE | 2023-10-20 14:34 | Hospitalist Progress Note ---
Date of Service October 20, 2023 Assessment & Plan (1) Pneumonia: (2) Acute hypoxic respiratory failure: (3) COPD exacerbation: (4) Sleep apnea: (5) 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: (6) Hypertension: (7) Anemia: (8) HLD (hyperlipidemia): (9) T2DM (type 2 diabetes mellitus): Plan Pneumonia/COPD exacerbation/acute respiratory failure with hypoxia- MRSA swab is negative, d/c Zyvox Chest x-ray with significant right lower lobe pneumonia Cefepime 2 g IV every 12 hours Azithromycin 500mg IV every 12 hours - change to PO daily Duonebs every 4 hours while awake and every 2 hours when necessary. Guaifenesin extended release 1200 mg p.o. twice daily Sputum Gram stain and culture CKD stage V not on dialysis- Patient following with nephrology at the [place], having been seen there about 1 week ago Creatinine 5.38, with base 5.03, and will follow serially He did receive normal saline 1 L bolus from the ED, with no further fluids to be given - b/l LE edema / h/o CHF Hypertension/CAD/ HFpEF Received PO Furosemide this morning, One dose of IV Furosemide in the afternnon Resume PO in AM Diabetes mellitus- Patient is already stopped his insulin pump Placed on Accu-Cheks with NovoLog SSI HELEN- Continue BiPAP at bedtime, with patient's usual settings of 03/04 Discharge in AM if continues to improve overnight Admission and Anticipated Discharge Date Admission Date: October 19, 2023 Results & Data Results & Data Vital Signs (Past 12 Hours) Vital Signs Temp Pulse Pulse Resp BP Pulse Ox O2 Del Method 10/20/23 13:57 72 10/20/23 11:20 37 C 69 16 122/63 94 Room Air 10/20/23 10:33 71 16 94 Room Air 10/20/23 10:00 Room Air 10/20/23 07:42 36.9 C 79 16 139/64 96 Room Air 10/20/23 07:14 84 16 96 Room Air 10/20/23 07:00 70 10/20/23 02:45 36.7 C 71 18 153/66 H 94 Room Air PG Care Time/CCT Total # of Minutes Spent Total Time Spent with Patient: Total time spent is greater than 50% in coordination of care (as documented) at patient's floor/unit and/or counseling patient: Coding Level of Care Code 48833 SUB INP/OBS CARE MIN Diagnoses Pneumonia J18.9 Laterality: bilateral Lung location: lower lobe of lung Pneumonia type: due to unspecified organism Acute hypoxic respiratory failure J96.01 COPD exacerbation J44.1 Sleep apnea G47.30 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 N18.5 Hypertension I10 Anemia D64.9 Anemia type: unspecified type HLD (hyperlipidemia) E78.5 T2DM (type 2 diabetes mellitus) E11.9 (1) Pneumonia Laterality: bilateral Lung location: lower lobe of lung Pneumonia type: due to unspecified organism Qualified Code(s): J18.9 - Pneumonia, unspecified organism (7) Anemia Anemia type: unspecified type Qualified Code(s): D64.9 - Anemia, unspecified
[2023-10-20] MEDS: VALSARTAN 80 MG TAB PO SCH (20:59)
[2023-10-20] MEDS: ASPIRIN 81 MG ECTAB PO SCH (21:00)
[2023-10-20] MEDS: ATORVASTATIN 40 MG TAB PO SCH (21:01)
[2023-10-20] MEDS: CYANOCOBALAMIN (B-12) 500 MCG TABLET PO SCH (21:01)
[2023-10-20] MEDS: AZITHROMYCIN 500 MG in DEXTROSE 5% 250 ML IV SCH (21:07)
--- NOTE | 2023-10-21 06:48 | Electrocardiogram Report ---
Test Reason : Blood Pressure : / mmHG Vent. Rate : 074 BPM Atrial Rate : 074 BPM P-R Int : 162 ms QRS Dur : 124 ms QT Int : 456 ms P-R-T Axes : 000 -53 -12 degrees QTc Int : 506 ms Normal sinus rhythm Right bundle branch block Left anterior fascicular block Bifascicular block Minimal voltage criteria for LVH, may be normal variant ( R in aVL ) T wave abnormality, consider lateral ischemia Abnormal ECG When compared with ECG of 22-JUL-2023 16:36, T wave inversion now evident in Anterolateral leads Confirmed by Trenton Berrios ([id number]) on 10/21/2023 6:47:44 AM Referred By: REFERRED SELF Confirmed By:Trenton Berrios
[2023-10-21 06:55] LABS: Basophils # (auto) 0.06 K/uL (0.00-0.20); Basophils % (auto) 0.9 %; Eosinophils # (auto) 0.28 K/uL (0.00-0.50); Eosinophils % (auto) 4.3 %; Hematocrit (blood only) 25.6 % (42.0-52.0); Hemoglobin 8.1 g/dl (14.0-18.0); Immature Granulocytes # (auto) 0.01 K/uL (0.01-0.20); Immature Granulocytes % (auto) 0.2 %; Lymphocytes # (auto) 0.92 K/uL (1.20-3.40); Lymphocytes % (auto) 14.3 %; Mean Corpuscular Hemoglobin 29.9 pg (25.0-34.0); Mean Corpuscular Hgb Conc 31.6 g/dL (32.0-36.0); Mean Corpuscular Volume 94.5 fL (80.0-100.0); Mean Platelet Volume 11.4 fL (9.4-12.4); Monocytes # (auto) 0.79 K/uL (0.11-0.59); Monocytes % (auto) 12.2 %; Neutrophils # (auto) 4.39 K/uL (1.40-6.50); Neutrophils % (auto) 68.1 %; Platelet Count 140 K/uL (130-400); RDW Coefficient of Variation 15.3 % (11.5-14.5); RDW Standard Deviation 52.6 fL (36.4-46.3); Red Blood Count 2.71 M/uL (4.70-6.10); White Blood Count 6.45 K/ul (4.8-10.8)
[2023-10-21 07:24] LABS: Albumin Level 3.3 gm/dl (3.4-5.0); Calcium 8.5 mg/dl (8.6-10.3); Creatinine Clr Calc Pharmacy 13.2 ml/min; Est GFR (African American) 9.3 ml/min; Phosphorus 5.6 mg/dl (2.5-4.9); Potassium 4.5 mmol/L (3.5-5.1)
[2023-10-21] MEDS: FUROSEMIDE 80 MG TAB PO SCH (08:09)
--- NOTE | 2023-10-21 18:10 | Discharge Summary ---
Discharge Summary Date of Service October 21, 2023 Principal Dx & Hospital Course #1 = Principal Diagnosis (1) Pneumonia: 78-year-old man with CKD stage V admitted with acute on chronic hypoxic respiratory failure related to heart failure exacerbation, Possible acute COPD exacerbation, possible community-acquired pneumonia Mr. Bunch was clearly volume overloaded and was diuresed with IV Lasix weight decreased from 88 down to 85.6 kg and lower extremity edema improved significantly. Hypoxia resolved back to his baseline of 2 L home oxygen. denies significant dietary indiscretions does monitor his weight and blood pressure daily he has been losing weight on semaglutide and wonder if some of his body weight was replaced with fluid weight. His satellite tv technician installer has been helping adjust his diuretics most recently he has been on Lasix 80 mg in the morning and 40 mg in the afternoon. Discharged with instructions to double up his afternoon Lasix if he has increased in weight of 2-3 pounds or more in 1 to 2 days or 5 pounds or more in a week, call his satellite tv technician installer if this measure is ineffective. - he will continue his metoprolol, hydralazine, Imdur, valsartan, terazosin at his usual doses for control of hypertension and HFpEF he was also treated for acute exacerbation of COPD and pneumonia. For the COPD he was treated with nebulizers but only required increased bronchodilators and did not need any steroids. It is not clear, but possibly all the wheezing could have been pulmonary edema. Chest x-ray was suggestive of bibasilar pneumonia which was treated with azithromycin and cefepime. he did not have fever, leukocytosis, or elevated procalcitonin however. Blood cultures are no growth to date. Sputum culture Was not able to be collected. nasal MRSA was negative and viral respiratory panel was negative. He has HELEN and BiPAP was continued (2) Acute hypoxic respiratory failure: (3) COPD exacerbation: (4) Sleep apnea: (5) 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: CKD stage V not on dialysis- following with nephrology at the [place], having been seen there about 1 week ago Creatinine 5.38 on admission, with baseline 5.03. increased to 6 after IV diuresis however this only represents 1% change in his GFR -Remained stable (6) Hypertension: see above (7) Anemia: (8) HLD (hyperlipidemia): coronary artery disease and dyslipidemia continue aspirin Plavix statin remains stable (9) T2DM (type 2 diabetes mellitus): resuming semaglutide and insulin pump Plan resumed insulin pump and semaglutide Admission HPI Per Admitting Provider The patient is a 78-year-old male with a past medical history including COPD, pneumonia, anemia, hyperlipidemia, NSTEMI, CHF, ESRD not on dialysis, diabetes mellitus type 2, sleep apnea requiring BiPAP 03/04, and morbid obesity. The patient had been to see his satellite tv technician installer about 1 week ago at the [place] and shortly thereafter had had development of a more mucousy cough, and less reliable improvement in breathing and cough after using his nebulizer. Discharge Exam PHYSICAL EXAMINATION Last 24h vital signs reviewed, see documentation in flowsheet General: comfortable appearing, no distress, sitting up in the chair, well- appearing HEENT: Normocephalic, atraumatic, pupils round and equal, sclerae anicteric, no conjunctival injection, moist mucus membranes Lungs: Normal respiratory effort. Clear to auscultation bilaterally. No RRW Heart: Regular rate and rhythm, no murmurs. No JVD Abdomen: Soft, nontender, nondistended. Bowel sounds present. Extremities: Warm, dry, well-perfused. 1+ lower extremity edema. left upper extremity AV fistula Neuro: Alert and oriented x 4, face symmetric, moves 4 extremities well Psych: Normal affect and behavior Updated Medication List Medication Instructions Recorded Confirmed Type aspirin 81 mg tablet,delayed 81 mg PO PM ##0 04/16/08 10/19/23 History release furosemide 40 mg tablet 80 mg PO BID ##0 04/16/08 10/19/23 History multivitamin 1 tab PO QAM ##0 04/16/08 10/19/23 History atorvastatin 40 mg tablet 40 mg PO PM ##0 01/28/09 10/19/23 History Insulin Human Regular (Insulin 07/11/23 07/11/23 History Regular Pump) Pump allopurinol 100 mg tablet 100 mg PO BID 07/11/23 10/19/23 History cyanocobalamin (vitamin B-12) 500 500 mcg PO PM 07/11/23 10/19/23 History mcg tablet hydralazine 50 mg tablet See Rx Instructions .Route .COMPLEX 07/11/23 10/19/23 History terazosin 5 mg capsule 5 mg PO QAM 07/11/23 10/19/23 History clopidogrel 75 mg tablet 75 mg PO QAM #30 tabs 07/15/23 10/19/23 Rx isosorbide mononitrate 30 mg 30 mg PO QAM #30 tabs 07/15/23 10/19/23 Rx tablet,extended release 24 hr metoprolol succinate 50 mg 100 mg (2 x 50 mg) PO QAM #60 tabs 07/15/23 10/19/23 Rx tablet,extended release 24 hr ipratropium 0.5 mg-albuterol 3 mg 3 ml inhalation Q6H PRN cough, 07/22/23 10/19/23 Rx (2.5 mg base)/3 mL nebulization wheezing, or shortness of breath soln #90 mL nebulizer and compressor #1 ea 07/22/23 Rx albuterol sulfate 90 mcg/actuation 1 - 2 puff inhalation DIRECTED 10/19/23 10/19/23 History aerosol inhaler PRN Shortness Of Breath Or Wheezing insulin aspart U-100 100 unit/mL 1 sliding scale dose continuous 10/19/23 10/19/23 History subcutaneous solution (Novolog subcutaneous infusion CONTINOUS U-100 Insulin aspart) valsartan 160 mg tablet 80 mg PO QPM 10/19/23 10/19/23 History azithromycin 500 mg tablet 500 mg PO DAILY 1 day #1 tab 10/21/23 Rx cefuroxime axetil 500 mg tablet 500 mg PO BID #11 tabs 10/21/23 Rx Hospital Stay Data Consultations 10/19/23 20:19 ED Decision to Admit Stat Diagnostic Imagining Performed Chest X-Ray 10/19/23 17:42 XR chest 1V portable HISTORY: Sepsis COMPARISON: Chest 07/22/2023. FINDINGS: No pneumothorax. The cardiac silhouette remains enlarged. Small bilateral pleural effusions and mild interstitial pulmonary edema. Patchy bibasilar densities persist. No acute fractures. Calcifications within the aortic knob. IMPRESSION: 1. No change in the cardiomegaly, small bilateral pleural effusions, and mild pulmonary edema. 2. Patchy bibasilar densities also persist. This could represent atelectasis or a pneumonia. ACT 112: Negative or not required by law. Electronically signed by: Tyrone Tapia M.D. 10/19/2023 7:41 PM 10/21/23 05:45 10/21/23 05:45 Pending Results Patient Have Any Pending Studies at Discharge: No Discharge Instructions Given to Patient (Per Discharging Provider) You were treated for pneumonia and heart failure exacerbation (fluid overload), causing trouble breathing -continue taking antibiotics: azithromycin for one more dose tomorrow AM, cefuroxime for 11 more doses starting tonight -recently your lasix (furosemide) dose has been 80 mg in AM and 40 mg in afternoon. -if your weight goes up by 2-3 pounds or more in 1-2 days or if it goes up by 5 pounds or more in a week, increase your lasix to 80 mg twice a day until your weight goes back down -if that does not work or if leg swelling or shortness of breath gets worse, call your satellite tv technician installer It was a pleasure taking care of you in the hospital Cee Olson MD Total Time Total Time Spent Total Time Spent (In Minutes): I personally spent: 40 minutes today on clinical care activities including: reviewing chart notes and vital signs reviewing labs examining and counseling the patient writing orders, discharge instructions, prescriptions documentation Coding Level of Care Code 48631 INP/OBS DISCH >30 MIN Diagnoses Pneumonia J18.9 Laterality: bilateral Lung location: lower lobe of lung Pneumonia type: due to unspecified organism Acute hypoxic respiratory failure J96.01 COPD exacerbation J44.1 Sleep apnea G47.30 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 N18.5 Hypertension I10 Anemia D64.9 Anemia type: unspecified type HLD (hyperlipidemia) E78.5 T2DM (type 2 diabetes mellitus) E11.9
[2023-10-21 20:49] LABS: A calco-baum cmplx NotReported Not Detected (NotDetected); Bact fragilis Not Reported Not Detected (NotDetected); Blood Culture Id Panel PCR Panel Negative (NotDetected); C auris Not Reported Not Detected (NotDetected); Calbicans Not Reported Not Detected (NotDetected); Candida glabrata Not Reported Not Detected (NotDetected); Candida krusei Not Reported Not Detected (NotDetected); Cneoformans/gatti Not Reported Not Detected (NotDetected); Cparapsilosis Not Reported Not Detected (NotDetected); E cloacae compx Not Reported Not Detected (NotDetected); Efaecalis Not Reported Not Detected (NotDetected); Efaecium Not Reported Not Detected (NotDetected); Enterobacterales Not Reported Not Detected (NotDetected); Escherichia coli Not Reported Not Detected (NotDetected); H influenzae Not Reported Not Detected (NotDetected); K aerogenes Not Reported Not Detected (NotDetected); Koxytoca Not Reported Not Detected (NotDetected); Kpneumoniae grp Not Reported Not Detected (NotDetected); Lmonocyt Not Reported Not Detected (NotDetected); N meningitidis Not Reported Not Detected (NotDetected); P aeruginosa Not Reported Not Detected (NotDetected); Proteus spp Not Reported Not Detected (NotDetected); Salmonella spp Not Reported Not Detected (NotDetected); Staph lugdunensis Not Reported Not Detected (NotDetected); Staph spp. Not Reported Not Detected (NotDetected); Staphaureus Not Reported Not Detected (NotDetected); Staphepi Not Reported Not Detected (NotDetected); Stenmaltophilia Not Reported Not Detected (NotDetected); Strep agal(GrpB) Not Reported Not Detected (NotDetected); Strep pneum Not Reported Not Detected (NotDetected); Strep pyog (GrpA) Not Reported Not Detected (NotDetected); Strep spp Not Reported Not Detected (NotDetected)
--- NOTE | 2023-10-22 05:57 | Communication Note ---
Date of Service: October 22, 2023 Was notified overnight of blood culture result: 1 of 2 bottles growing gram negative bacilli. Patient was discharged home on cefuroxime earlier on 10/21/23, this antibiotic should provide adequate coverage but will relay result to Dr. Olson who treated Mr. Bunch for determination of need for further intervention.
--- NOTE | 2023-10-22 15:09 | Communication Note ---
Date of Service: October 22, 2023 Gram negative bacillus in anaerobic bottle from admission blood culture 10/18 (1/4 bottles). Blood culture PCR panel was negative. He did not have sepsis a nd the evidence for pneumonia was thin, UA was negative and he did not have symptoms of an infectious process otherwise. Currently he is on oral cephalosporin to complete pneumonia treatment. Thus this blood culture is of questionable clinical significance - will follow.
== END 2023-10-21 14:00 | disposition home or self-care (01) | DRG 193 ==
LOC: ED 17:37 → SUATTDRO 22:07 → 2S 22:07